=== PATIENT | male | born 1935 | race Caucasian/White ===

== ENCOUNTER 2018-02-15 19:44 | Observation (INO) | payer MEDICARE, OTHER, SELFPAY ==
[2018-02-15 19:46] VITALS: BP 186/81; PULSE 81; RESP 18; TEMP 37; O2SAT 96; BMI 33.5
--- NOTE | 2018-02-15 20:07 | CT_ITS ---
STUDY: CT BRAIN WITHOUT CONTRAST REASON FOR EXAM: Male, 82 years old. Dizziness RADIATION DOSAGE (If Supplied By Facility): CTDIvol = ( 44.99 ) mGy, DLP = ( 796.11 ) mGycm TECHNIQUE: Transaxial CT imaging of the brain was performed without administration of intravenous contrast material. Individualized dose optimization techniques were used for this CT. COMPARISON: None. FINDINGS: There is no acute bleed or infarct. There are chronic ischemic and atrophic changes. The ventricles are normal in configuration. There is no hydrocephalus. There is mucosal hypertrophy in the ethmoid sinuses and left maxillary sinus. The mastoid air cells are well aerated. There is no skull fracture. CT/Brain/Head without Contrast IMPRESSION: No acute intracranial abnormality. Chronic ischemic and atrophic changes. Sinusitis. Electronically Signed: Jose Antonio Adorno, at 20:53 EDT Tel , Service support ,
--- NOTE | 2018-02-15 20:08 | EKG12_ITS ---
Test Reason : DIZZY Blood Pressure : / mmHG Vent. Rate : 076 BPM Atrial Rate : 076 BPM P-R Int : 206 ms QRS Dur : 108 ms QT Int : 402 ms P-R-T Axes : 044 -27 028 degrees QTc Int : 452 ms Normal sinus rhythm Normal ECG Confirmed by AVTAR LOBO, GARTH ([id number]), technical writer and editor CHIQUITA BEE ([id number]) on 02/17/2018 3:33:55 PM Referred By: ALANNA Confirmed By:GARTH NOVA MD
[2018-02-15] MEDS: 0.9% Normal Saline 1,000 ML 150 ML IV (20:22)
[2018-02-15 20:26] LABS: Absolute Lymphocyte Count 1.69 X10^3/ul (0.83-4.51); Absolute Neutrophil Count 2.7 X10^3/uL (2.0-7.7); Basophil# 0.03 X10^3/uL; Basophil% 0.5 % (0-1); Eosinophil# 0.36 X10^3/uL; Eosinophils% 6.6 % (0-5); Hematocrit 41.8 % (40-54); Lymphocyte # 1.69 X10^3/ul (4.0); Lymphocyte % 30.8 % (19-41); Mean Corp Hgb Conc 33.5 g/gl (32-36); Mean Corpuscular Volume 92.7 fL (80-94); Mean Platelet Vol. 10.7 fl (6.2-12.0); Monocyte# 0.67 X10^3/uL; Monocyte% 12.2 % (0-10); Neutrophil % 49.4 % (47-70); Platelet Count 167 K/mm3 (150-450); RBC Distribution Width CV 13.3 % (11.6-14.6); RBC Distribution Width SD 44.4 fl (35.1-43.9); Red Blood Count 4.51 M/mm3 (4.6-6.2); White Blood Count 5.5 K/mm3 (4.4-11.0)
[2018-02-15 20:27] LABS: POSITIVE COUNT NO; POSITIVE DIFFERENTIAL NO; POSITIVE MORPHOLOGY NO
--- NOTE | 2018-02-15 20:36 | RAD_ITS ---
STUDY: X-RAY CHEST REASON FOR EXAM: Male, 82 years old. Chest pain TECHNIQUE: Frontal view of the chest COMPARISON: 02/11/2014 FINDINGS: The lungs are clear. There are no pleural effusions. There is no pneumothorax. The heart is normal in size. The visualized osseous structures are within normal limits. RAD/Chest 1 View (Portable) IMPRESSION: No acute thoracic pathology. Electronically Signed: Jose Antonio Adorno, at 21:05 EDT Tel , Service support ,
[2018-02-15 20:50] LABS: Anion Gap 6 (5-15); BUN 13 mg/dL (7-18); Calcium,Total 8.2 mg/dL (8.5-10.1); Chloride 110 mmol/L (98-107); Creatinine, Serum 0.93 mg/dL (0.70-1.30); EST Glomerular Filtration Rate 83 mL/min (>60); Est Glom Filt Rate - Afr Amer 101 mL/min (>60); Glucose 123 mg/dL (74-106); Potassium 3.8 mmol/L (3.5-5.1); Sodium Level 145 mmol/L (136-145)
[2018-02-15 21:23] VITALS: BP 141/69; PULSE 70; RESP 21; O2SAT 96
--- NOTE | 2018-02-15 22:41 | ED.DCSUM_ITS ---
- ER Visit Summary Date of Service: 02/15/18 Chief Complaint: Dizzy History of Present Illness: The patient is a 82 M who lives alone. Patient states he felt well around the house. He states he walked outside to do something and had sudden onset of dizziness and felt as if he is going to pass out. He did stumble around a bit and felt off balance. Symptoms lasted for approximately 2 minutes and then resolved. Patient does report a mild headache at this time. He was concerned enough to call his family. Past history significant for spinal stenosis, left bundle branch block, and neuropathy. He has had prior back surgery. Physical Examination: Vital signs are significant for blood pressure of 186/81, otherwise unremarkable. Patient sitting upright in bed no acute distress. Head neck examination is normal. Heart is regular rate and rhythm. Lung sounds are clear. Abdomen is soft nontender. Neuro exam reveals no focal deficits. Test Results: EKG is sinus at 76 with no sign of acute ischemia. Portable chest x-ray reveals no acute pathology. CT head shows no acute abnormality. Sinusitis is noted. CBC and chemistry studies are unremarkable. Troponin is less than 0.02. Emergency Department Course and Treatment: Repeat evaluation patient is resting comfortably. At this time I recommended observation overnight for cardiac monitoring as the patient had a near syncopal event. I am also concerned about possible TIA with vertigo type symptoms. Patient does live alone and is agreeable to staying for observation. Hospitalist will be contacted. Treatment Plan: [] Disposition: Admit Impression: 1. Near syncope with dizziness This note was generated with [employer] dictation software. It may contain incorrect words, spelling, and punctuation that were not noted in review of the chart prior to signing ED Disposition - Plan for ED Patient: Chief Complaint: Dizziness Referrals: Simona Gracia MD [Primary Care Provider] -
--- NOTE | 2018-02-15 22:56 | PCM.HP.STD ---
Problem List (1) Syncope Status: Acute (2) Left leg swelling Status: Acute (3) GERD (gastroesophageal reflux disease) Status: Acute History of Present Illness Date of Admission: 02/15/18 Chief Complaint: Near syncope The patient is a 82 year old male w/ h/o spinal stenosis, LBBB, and neuropathy is admitted for near syncope. He went to work this morning and when he got home, he went to the kitchen to do his usual routine. However, when he stepped outside his house, he felt severe dizziness that almost made him lost his balance. He felt as if he was about to pass out. The episode lasted for 2 minutes. He did not lose consciousness. Nothing made it better or worse. It was not associated with any other symptoms. He made a mild temporal headache afterward. The headache lasted for a few hours and resolved. He became concern and went to the ED for further workup. Past Medical History Allergies levofloxacin [From Levaquin] Allergy (Verified 02/15/18 19:46) Other Home Medications: Ambulatory Orders Medication Instructions Recorded Albuterol IH (ProAir) [Proair Hfa] 1 - 2 puff INHALATION Q4H PRN PRN 11/18/13 Desloratadine [Clarinex] 5 mg PO DAILY PRN 11/18/13 Esomeprazole Mag Trihydrate 40 mg PO DAILY 11/18/13 [Nexium] Fluticasone/Salmeterol [Advair 1 puff INHALATION DAILY 11/18/13 250/50 Mcg Diskus] Flunisolide 0.025% [Nasarel Nose 2 spray NASAL BID PRN 04/05/15 [place]] Vitamin B Complex 1 each PO DAILY 02/15/18 Surgical History: no surgical history Psychiatric History: No pertinent psych hx Lives: Alone Smoking Status: Never smoker Alcohol: None Drugs: None - *Family History Maternal History Items: No pertinent history Review of Systems Constitutional: Denies: Chills, Fever, Weight Change HEENT: Denies: Head Aches, Sinus Congestion, Sinus Drainage Cardiovascular: Denies: Chest Pain, Palpitations Respiratory: Denies: Cough, Shortness of breath at rest, Sputum production Gastrointestinal: Denies: Abdominal Pain, Nausea, Vomiting Genitourinary: Denies: Dysuria Musculoskeletal: Denies: Joint Pain, Joint Tenderness Skin: Denies: Rash, Wounds Neurological: Denies: Numbness, Tingling, Focal weakness Psychiatric: Denies: Anxiety, Depression, Homicidal Ideations, Suicidal Ideations Hematologic/ Lymphatic: Denies: Easy Bruising, Easy Bleeding VTE Information - Inpt Only VTE Present on Admission: No VTE Mechan Device Prophylaxis: SCD's VTE Pharm Prophylaxis ordered?: Yes Patient Problems: Active and Suspected Problems Syncope (Acute) Left leg swelling (Acute) GERD (gastroesophageal reflux disease) (Acute) - Physical Exam General: Alert, Oriented x3, Cooperative HEENT: Atraumatic, PERRLA, EOMI, Normocephalic Neck: Supple, No JVD, Negative Carotid Bruits Lungs: Clear to auscultation, Normal air movement Cardiovascular: Regular rate, No murmurs Abdomen: Bowel Sounds Present, Soft, Non Tender Extremities: No edema, Capillary Refill Less than 3 Seconds Skin: No rashes, No breakdown Musculoskeletal: No Tenderness to Palpation of Joints or Extremities Neurological: Cranial nerves II-XII grossly intact Psych/Mental Status: Normal Affect, Appropriate Vital Signs Temp Pulse Resp BP Pulse Ox 98.6 F 70 21 H 141/69 H 96 02/15/18 19:46 02/15/18 21:23 02/15/18 21:23 02/15/18 21:23 02/15/18 21:23 Oxygen Flow Rate (L/min) 2 Oxygen Delivery Method Nasal Cannula Weight: 102.9 kg Body Mass Index (BMI) 33.5 Laboratory Tests Past 24 Hrs 02/15/18 02/15/18 20:18 20:18 WBC 5.5 RBC 4.51 L Hgb 14.0 Hct 41.8 MCV 92.7 MCH 31.0 MCHC 33.5 RDW 13.3 RDW Differential 44.4 H Plt Count 167 MPV 10.7 Immature Gran % (Auto) 0.500 Neut % (Auto) 49.4 Lymph % (Auto) 30.8 [place] % (Auto) 12.2 H Eos % (Auto) 6.6 H Baso % (Auto) 0.5 Absolute Neuts (auto) 2.7 Absolute Lymphs (auto) 1.69 Total Counted Not Reportable Sodium 145 Potassium 3.8 Chloride 110 H Carbon Dioxide 29.0 Anion Gap 6 BUN 13 Creatinine 0.93 Estim Creat Clear Calc 62.30 Est GFR (MDRD) Af Amer 101 Est GFR (MDRD) Non-Af 83 BUN/Creatinine Ratio 14.0 Glucose 123 H Calcium 8.2 L Troponin I < 0.02 Assessment/Plan Active and Suspected Problems Syncope (Acute) Left leg swelling (Acute) GERD (gastroesophageal reflux disease) (Acute) 82 year old male w/ h/o spinal stenosis, LBBB, and neuropathy is admitted for near syncope. 1) Near syncope: No clear etiology. CT brain disclosed no acute intracranial abnormality. Chronic ischemic and atrophic changes. Sinusitis. Will get carotid US. Will get ECHO. Will also get trops. Will also get orthostatic hypotension. 2) Left leg swelling: Will get doppler. D-dimer negative. Supportive care. 3) Chronic issues: GERD, spinal stenosis, LBBB and neuropathy: Supportive care. 4) Prophylaxis: SCD / heparin.
[2018-02-15 23:26] VITALS: BP 158/77; PULSE 75; RESP 12; O2SAT 95
[2018-02-15] MEDS: Acetaminophen 325 MG Tablet 650 MG PO (23:35)
[2018-02-16] VITALS (11 sets, daily range): BP systolic 137–162; BP diastolic 68–98; PULSE 66–89; RESP 16–19; TEMP 36.6–36.9; O2SAT 93–96; BMI 39.2
[2018-02-16] MEDS: 0.9% NaCl Peripheral Flush Adult/Peds IV (01:17)
[2018-02-16] MEDS: 0.9% Normal Saline 1,000 ML 150 ML IV ×2 (01:17→08:35)
[2018-02-16 02:01] LABS: D-Dimer Quantitative (DVT/PE) 0.44 FEU/ug/m (0.27-0.49)
[2018-02-16 02:29] LABS: Thyroid Stim Hormone (TSH) 5.38 uIU/mL (0.358-3.74)
[2018-02-16] MEDS: Heparin Injection (Vial) 5,000 UNIT/ML VIAL 5000 UNIT SC ×2 (05:16→14:09)
[2018-02-16 05:36] LABS: Absolute Lymphocyte Count 1.61 X10^3/ul (0.83-4.51); Absolute Neutrophil Count 2.1 X10^3/uL (2.0-7.7); Basophil# 0.02 X10^3/uL; Basophil% 0.4 % (0-1); Eosinophil# 0.35 X10^3/uL; Eosinophils% 7.2 % (0-5); Hematocrit 39.4 % (40-54); Hemoglobin 13.3 g/dl (13.0-16.5); Lymphocyte # 1.61 X10^3/ul (4.0); Mean Corp Hgb Conc 33.8 g/gl (32-36); Mean Corpuscular Hgb 31.3 pg (27.0-32.0); Mean Corpuscular Volume 92.7 fL (80-94); Mean Platelet Vol. 10.9 fl (6.2-12.0); Monocyte# 0.76 X10^3/uL; Monocyte% 15.6 % (0-10); Neutrophil # 2.12 X10^3/uL (2.7-7.7); Neutrophil % 43.4 % (47-70); Platelet Count 162 K/mm3 (150-450); RBC Distribution Width CV 13.2 % (11.6-14.6); RBC Distribution Width SD 44.7 fl (35.1-43.9); Red Blood Count 4.25 M/mm3 (4.6-6.2); White Blood Count 4.9 K/mm3 (4.4-11.0)
[2018-02-16 05:51] LABS: ALB/GLOB Ratio 0.9 RATIO (0.9-2.4); AST(SGOT) 19 U/L (15-37); Alanine Aminotransfer ALT/SGPT 25 U/L (16-61); Albumin, Serum 2.8 g/dL (3.2-5.0); Alkaline Phosphatase 43 U/L (45-117); Anion Gap 7 (5-15); BUN 13 mg/dL (7-18); Calcium,Total 7.7 mg/dL (8.5-10.1); Chloride 113 mmol/L (98-107); Creatinine, Serum 0.87 mg/dL (0.70-1.30); EST Glomerular Filtration Rate 90 mL/min (>60); Est Glom Filt Rate - Afr Amer 109 mL/min (>60); Estimated Creatinine Clearance 66.59 ml/min; Globulin 3.2 g/dL (2.2-4.2); Glucose 89 mg/dL (74-106); Potassium 4.2 mmol/L (3.5-5.1); Sodium Level 146 mmol/L (136-145)
[2018-02-16 05:52] LABS: POSITIVE COUNT NO; POSITIVE DIFFERENTIAL NO; POSITIVE MORPHOLOGY NO
--- NOTE | 2018-02-16 05:55 | CDU_ITS ---
Reason For Study: syncope/near syncope Rt. Velocities/BP Lt. Velocities/BP Prox CCA 89.1/15.8 cm/sec. Prox CCA 134.0/14.7 cm/sec. Mid CCA 123.0/20.5 cm/sec. Mid CCA 123.0/18.1 cm/sec. Dist CCA 108.0/19.9 cm/sec. Dist CCA 124.0/17.3 cm/sec. Prox ICA 81.5/11.7 cm/sec. Prox ICA 102.0/14.1 cm/sec. Mid ICA 71.5/12.3 cm/sec. Mid ICA 75.6/13.5 cm/sec. Dist ICA 92.0/17.0 cm/sec. Dist ICA 77.4/18.8 cm/sec. Rt. ICA/CCA = 92.0/123.0=0.75. Lt. ICA/CCA = 102.0/123.0=0.83. Prox ECA 162.0/14.7 cm/sec. Prox ECA 132.0/11.0 cm/sec. Rt. Vert. 37.3/6.68 cm/sec. Lt. Vert. 53.0/9.43 cm/sec. Right Extracranial There is intimal thickening but no significant atherosclerotic plaque noted in the right common carotid artery. There is intimal thickening but no significant atherosclerotic plaque noted in the right internal carotid artery. There is intimal thickening but no significant atherosclerotic plaque noted in the right external carotid artery. Antegrade flow is noted in the right vertebral artery. There is heterogeneous, irregular atherosclerotic plaque noted in the right bulb. Left Extracranial There is intimal thickening but no significant atherosclerotic plaque noted in the left common carotid artery. There is homogeneous, smooth atherosclerotic plaque noted in the left internal carotid artery. There is intimal thickening but no significant atherosclerotic plaque noted in the left external carotid artery. Antegrade flow is noted in the left vertebral artery. There is heterogeneous, irregular atherosclerotic plaque noted in the left bulb. Interpretation Summary Mild (<50%) stenosis right extracranial internal carotid. Mild (<50%) stenosis left extracranial internal carotid. Flow within the vertebral arteries is antegrade bilaterally. Ordering Physician: Larry Nath Referring Physician: Simona Gracia Performed By: Jenna Waldrop, CHRISTIAN, RVT
--- NOTE | 2018-02-16 05:55 | VDLE_ITS ---
Reason For Study: LLE swelling RIGHT LEFT CFV is compressible, spontaneous, phasic, GSV is normal. competent and demonstrates normal CFV is compressible, spontaneous, phasic, augmentation. competent, and demonstrates normal Procedure augmentation. Exam performed portable in patient room. FV is compressible, spontaneous, phasic, The exam was diagnostic. competent and demonstrates normal A preliminary report was called and/or faxed augmentation. to PCU. POP V is compressible, spontaneous, phasic, competent and demonstrates normal augmentation. T/P Trunk is compressible. PTV is compressible. LT PerV is compressible. Interpretation Summary 1. Left leg with no DVT or SVT. Ordering Physician: Larry Nath Referring Physician: Simona Gracia Performed By: Jenna Waldrop, CHRISTIAN, RVT
--- NOTE | 2018-02-16 05:55 | ECHOD_ITS ---
Reason For Study: HTN Procedure This was a 2D Doppler, Color Flow transthoracic echocardiogram. Exam performed portable in patient room. Left Ventricle Normal LV size. Left ventricular systolic function is normal. The estimated ejection fraction is 60 %. Transmitral diastolic flow velocities suggest mild (stage 1) diastolic dysfunction (reversed pattern). No regional wall motion abnormalities noted. Right Ventricle Normal RV size. Normal systolic function. Atria Normal left atrium. Normal right atrium. Mitral Valve There is mild to moderate mitral annular calcification. Trivial eccentric mitral valve insufficiency. Tricuspid Valve Normal tricuspid valve. Mild to moderate (1-2+) tricuspid valve insufficiency. Pulmonary artery systolic pressure is 42 mmHg. Aortic Valve Trisinus/trileaflet aortic valve. Mild focal aortic valve calcification. Pulmonic Valve Normal pulmonic valve. Great Vessels Normal aortic root. The pulmonary artery is normal size. Normal inferior vena cava. Pericardium/Pleural No pericardial effusion. Medication PREVIOUSLY NEGATIVE BUBBLE STUDY. MMode/2D Measurements & Calculations LVIDd: 4.3 cm IVSd: 1.1 cm Ao root diam: 4.0 cm LVIDs: 3.0 cm LVPWd: 1.1 cm RVDd: 3.5 cm FS: 28.4 % LAV(MOD-bp): 61.7 ml EDV(MOD-sp4): 165.1 ml EDV(MOD-sp2): 145.0 ml LAV(MOD-bp) Indexed: 28.4 ml/m2 ESV(MOD-sp4): 50.1 ml EF(MOD-sp2): 58.7 % LAV(MOD-sp2): 66.5 ml EF(MOD-sp4): 69.7 % LAV(MOD-sp4): 48.3 ml SV(MOD-sp4): 115.1 ml SV(MOD-sp2): 85.2 ml LA A4 area: 18.4 cm2 RA A4 area: 15.0 cm2 Doppler Measurements & Calculations MV E max jesu: 91.8 cm/sec Lat Peak E' Jesu: 12.8 cm/sec Med Peak E' Jesu: 6.9 cm/sec MV A max jesu: 100.1 cm/sec E/E' lat: 7.1 E/E' med: 13.3 MV E/A: 0.92 Ao V2 max: 146.9 cm/sec LV V1 max: 121.9 cm/sec PA V2 max: 126.9 cm/sec Ao max P.6 mmHg LV V1 max P.9 mmHg TR max jesu: 298.7 cm/sec TR max P.7 mmHg Interpretation Summary Normal LV size. Left ventricular systolic function is normal. The estimated ejection fraction is 60 %. Transmitral diastolic flow velocities suggest mild (stage 1) diastolic dysfunction (reversed pattern). Mild to moderate (1-2+) tricuspid valve insufficiency. Pulmonary artery systolic pressure is 42 mmHg. Ordering Physician: Larry Nath Referring Physician: DELFINO SIMENTAL Performed By: Georgina Brandon RDCS, RVT
[2018-02-16] MEDS: Albuterol 2.5 MG/3 ML VIAL.NEB. INHALATION ×2 (07:13→13:08)
[2018-02-16] MEDS: Budesonide Respules 0.5 MG/2 ML AMPUL.NEB. INHALATION (07:13)
[2018-02-16] MEDS: Vitamin B Comp W-C Capsule 1 CAP PO (09:52)
[2018-02-16] MEDS: Loratadine 10 MG Tablet PO (09:52)
[2018-02-16] MEDS: Pantoprazole Sodium 40 MG Tablet PO (09:52)
--- NOTE | 2018-02-16 11:00 | PCM.DC ---
- Discharge Diagnoses Current Active Problems: Current Active and Chronic Problems Syncope (Acute) Left leg swelling (Acute) GERD (gastroesophageal reflux disease) (Acute) Reason(s) for Visit for Discharge Instructions: Dizziness You will use the following diet at home:: Regular Your food should be the consistency of: Regular Your liquids should be the consistency of: Regular/Thin Discharge Activity: Return to Normal Activity Additional Instructions: Continue to hydrate yourself. You have been prescribed antibiotics for your sinusitis. Allergies/Adverse Reactions: Allergies levofloxacin [From Levaquin] Allergy (Verified 02/15/18 19:46) Other aspirin Adverse Reaction (Verified 02/15/18 23:34) Other BLEEDING INTERNALLY Medications to take at Discharge Albuterol IH (ProAir) [Proair Hfa] 1 - 2 puff INHALATION Q4H PRN PRN 11/18/13 Desloratadine [Clarinex] 5 mg PO DAILY PRN 11/18/13 Esomeprazole Mag Trihydrate [Nexium] 40 mg PO DAILY 11/18/13 Fluticasone/Salmeterol [Advair 250/50 Mcg Diskus] 1 puff INHALATION DAILY 11/18/13 Flunisolide 0.025% [Nasarel Nose [place]] 2 spray NASAL BID PRN 04/05/15 Vitamin B Complex 1 each PO DAILY 02/15/18 Amoxicillin/Potassium Clav [Augmentin 875-125 Tablet] 1 ea PO BID #14 tab 02/16/18 The following prescriptions were given: Amoxicillin/Potassium Clav [Augmentin 875-125 Tablet] 1 ea PO BID #14 tab Primary Care Physician: Simona Gracia MD [Primary Care Provider] - Please follow up with your Primary Care Physician in: within 2 weeks Proposed Discharge Date: 02/16/18
--- NOTE | 2018-02-16 11:03 | DCINST_ITS ---
- Discharge Diagnoses Current Active Problems: Current Active and Chronic Problems Syncope (Acute) Left leg swelling (Acute) GERD (gastroesophageal reflux disease) (Acute) Reason(s) for Visit for Discharge Instructions: Dizziness You will use the following diet at home:: Regular Your food should be the consistency of: Regular Your liquids should be the consistency of: Regular/Thin Discharge Activity: Return to Normal Activity Additional Instructions: Continue to hydrate yourself. You have been prescribed antibiotics for your sinusitis. Allergies/Adverse Reactions: Allergies levofloxacin [From Levaquin] Allergy (Verified 02/15/18 19:46) Other aspirin Adverse Reaction (Verified 02/15/18 23:34) Other BLEEDING INTERNALLY Medications to take at Discharge Albuterol IH (ProAir) [Proair Hfa] 1 - 2 puff INHALATION Q4H PRN PRN 11/18/13 Desloratadine [Clarinex] 5 mg PO DAILY PRN 11/18/13 Esomeprazole Mag Trihydrate [Nexium] 40 mg PO DAILY 11/18/13 Fluticasone/Salmeterol [Advair 250/50 Mcg Diskus] 1 puff INHALATION DAILY Flunisolide 0.025% [Nasarel Nose [place]] 2 spray NASAL BID PRN 04/05/15 Vitamin B Complex 1 each PO DAILY 02/15/18 Amoxicillin/Potassium Clav [Augmentin 875-125 Tablet] 1 ea PO BID #14 tab The following prescriptions were given: Amoxicillin/Potassium Clav [Augmentin 875-125 Tablet] 1 ea PO BID #14 tab Primary Care Physician: Simona Gracia MD [Primary Care Provider] - Please follow up with your Primary Care Physician in: within 2 weeks Proposed Discharge Date: 02/16/18
--- NOTE | 2018-02-16 11:03 | PCM.DC.SUM ---
Discharge Date and Diagnosis Date of Admission: 02/15/18 Date of Discharge: 02/16/18 - Primary Discharge Diagnosis Active and Suspected Problems Syncope (Acute) Left leg swelling (Acute) GERD (gastroesophageal reflux disease) (Acute) - Secondary Discharge Diagnosis Spinal stenosis LBBB Hospital Course and Treatment Imaging Results: Clinical Impression(s) from Imaging Studies Brain CT 02/15/18 20:07 IMPRESSION: No acute intracranial abnormality. Chronic ischemic and atrophic changes. Sinusitis. Electronically Signed: Jose Antonio Willsonneeraj, at 20:53 EDT Tel , Service support , Chest X-Ray 02/15/18 20:36 IMPRESSION: No acute thoracic pathology. Electronically Signed: Jose Antonio Kyree, at 21:05 EDT Tel , Service support , None Operations: None Procedures: None Summary of Care Provided: The patient is a 82 year old M with PMHx of spinal stenosis, LBBB, peripheral neuropathy who was admitted after an episode of near syncope. It was said to have gone to work in the morning of the admission, and when he returned home and was going about his usual duties, he felt sudden onset of dizziness that made him lose his balance and feel as he was going to pass out. This lasted about 2 minutes. He did not pass out and did not lose any consciousness. He had a mild temporal headache afterwards. Workup in the ED was unremarkable. Patient was brought to the hospital, vitals remained stable, orthostatic vitals were negative. He had 2D echo that was negative. He had a Doppler ultrasound for his left leg swelling that was negative. Patient was reassured, ambulated well in the nursing unit with no acute events. He was discharged home in stable condition Discharge Diet: Low fat/ Low Cholesterol, 2000 mg Sodium Diet Discharge Activity: Return to Normal Activity Home Medications: Medications to take at Discharge Albuterol IH (ProAir) [Proair Hfa] 1 - 2 puff INHALATION Q4H PRN PRN 11/18/13 Desloratadine [Clarinex] 5 mg PO DAILY PRN 11/18/13 Esomeprazole Mag Trihydrate [Nexium] 40 mg PO DAILY 11/18/13 Fluticasone/Salmeterol [Advair 250/50 Mcg Diskus] 1 puff INHALATION DAILY 11/18/13 Flunisolide 0.025% [Nasarel Nose [place]] 2 spray NASAL BID PRN 04/05/15 Vitamin B Complex 1 each PO DAILY 02/15/18 Amoxicillin/Potassium Clav [Augmentin 875-125 Tablet] 1 ea PO BID #14 tab 02/16/18 Following Prescrptions Were Given to Patient: Amoxicillin/Potassium Clav [Augmentin 875-125 Tablet] 1 ea PO BID #14 tab Primary Care Physician: Simona Gracia MD [Primary Care Provider] - Please follow up with your Primary Care Physician in: within 2 weeks Disposition: Home Minutes spent on discharge:: 35 Patient Condition:: Stable Medical Necessity - Tobacco Use Smoking Status: Never smoker Meaningful Use Info Meaningful Use Diagnoses (Choose all that apply): None applicable Code Visit Inpatient E&M: 08526 Disch Hosp
== END 2018-02-16 11:01 | disposition home or self-care (01) ==
LOC: ED 20:46 → PCU 02-16 00:42
PROVIDERS: Admitting Provider Internal Medicine; Emergency Provider Emergency Medicine; Family Provider Family Medicine; PCP Family Medicine; Visit Provider Internal Medicine
DX: R55 Syncope and collapse (principal); M79.89 Other specified soft tissue disorders; K21.9 Gastro-esophageal reflux disease without esophagitis; I44.7 Left bundle-branch block, unspecified; G62.9 Polyneuropathy, unspecified; R51 Headache; Z79.899 Other long term (current) drug therapy; Z79.51 Long term (current) use of inhaled steroids
CPT/HCPCS: 36415; 70450; 71045; 80048; 80053; 84443; 84484; 85025; 85379; 93005; 93306; 93880; 93971; 94640; 96360; 96361; 96372; 99218; 99283; J7030; A4216; G0378

== ENCOUNTER → 2018-04-22 09:12 | Outpatient (CLI) | payer MEDICARE, OTHER, SELFPAY ==
[2018-04-22 12:34] LABS: Thyroid Stim Hormone (TSH) 2.42 uIU/mL (0.358-3.74)
== END ==
PROVIDERS: Family Provider Family Medicine; PCP Family Medicine; Visit Provider Family Medicine
DX: E03.9 Hypothyroidism, unspecified (principal)
CPT/HCPCS: 36415; 84443

== ENCOUNTER → 2018-10-30 10:10 | Outpatient (CLI) | payer MEDICARE, OTHER, SELFPAY ==
[2018-02-16 00:44] VITALS: BMI 39.2
[2018-10-30 11:48] LABS: Absolute Neutrophil Count 2.8 X10^3/uL (2.0-7.7); Basophil# 0.02 X10^3/uL; Basophil% 0.4 % (0-1); Eosinophil# 0.21 X10^3/uL; Hematocrit 43.9 % (40-54); Hemoglobin 14.9 g/dl (13.0-16.5); Lymphocyte % 24.5 % (19-41); Mean Corp Hgb Conc 33.9 g/gl (32-36); Mean Corpuscular Hgb 31.4 pg (27.0-32.0); Mean Corpuscular Volume 92.4 fL (80-94); Mean Platelet Vol. 11.2 fl (6.2-12.0); Monocyte# 0.96 X10^3/uL; Monocyte% 18.1 % (0-10); Neutrophil # 2.79 X10^3/uL (2.7-7.7); Neutrophil % 52.6 % (47-70); Platelet Count 165 K/mm3 (150-450); RBC Distribution Width CV 13.1 % (11.6-14.6); Red Blood Count 4.75 M/mm3 (4.6-6.2); White Blood Count 5.3 K/mm3 (4.4-11.0)
[2018-10-30 11:51] LABS: POSITIVE COUNT NO; POSITIVE DIFFERENTIAL NO; POSITIVE MORPHOLOGY NO
[2018-10-30 12:39] LABS: ALB/GLOB Ratio 1.1 RATIO (0.9-2.4); AST(SGOT) 20 U/L (15-37); Alanine Aminotransfer ALT/SGPT 26 U/L (16-61); Albumin, Serum 3.6 g/dL (3.2-5.0); Alkaline Phosphatase 49 U/L (45-117); Anion Gap 9 (5-15); BUN 14 mg/dL (7-18); Calcium,Total 8.4 mg/dL (8.5-10.1); Chloride 107 mmol/L (98-107); EST Glomerular Filtration Rate 76 mL/min (>60); Est Glom Filt Rate - Afr Amer 92 mL/min (>60); Globulin 3.3 g/dL (2.2-4.2); Glucose 78 mg/dL (74-106); Protein, Total 6.9 g/dL (6.4-8.2); Sodium Level 144 mmol/L (136-145); T4 Total, Thyroxin 7.2 ug/dL (4.5-12.1); Thyroid Stim Hormone (TSH) 3.53 uIU/mL (0.358-3.74)
== END ==
PROVIDERS: Family Provider Family Medicine; PCP Family Medicine; Visit Provider Family Medicine
DX: E03.9 Hypothyroidism, unspecified (principal); R53.81 Other malaise; R53.83 Other fatigue
CPT/HCPCS: 36415; 80053; 84436; 84443; 85025

== ENCOUNTER → 2019-11-12 09:36 | Outpatient (CLI) | payer MEDICARE, OTHER, SELFPAY ==
[2019-11-12 09:29] VITALS: BMI 39.2
--- NOTE | 2019-11-12 09:37 | RAD_ITS ---
STUDY: X-RAY - RIGHT KNEE REASON FOR EXAM: Male, 83 years old. KNEE PAIN TECHNIQUE: 4 view(s) of the knee. COMPARISON: Previous study of 01/30/2016 FINDINGS: Normal visualized distal femur. Normal visualized proximal tibia and fibula. Normal proximal tibiofibular articulation. There are severe degenerative changes of the medial knee compartment with severe joint space narrowing. Normal lateral femorotibial compartment. There is mild degenerative arthrosis of the patellofemoral articulation. The soft tissue structures are unremarkable. 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 The degree of degenerative disease of the medial knee compartment has increased in severity in the interval. Mild degenerative changes of the patellofemoral compartment. Electronically Signed: Juan Carlos Lai MD at 21:27 EST , Service support ,
== END ==
PROVIDERS: PCP Family Medicine; Referring Provider Physician Assistant; Visit Provider Physician Assistant
DX: M17.11 Unilateral primary osteoarthritis, right knee (principal)
CPT/HCPCS: 73564

== ENCOUNTER → 2019-12-13 14:41 | Outpatient (CLI) | payer MEDICARE, OTHER, SELFPAY ==
[2019-11-12 09:29] VITALS: BMI 39.2
[2019-12-13 17:57] LABS: Anion Gap 4 (5-15); BUN 18 mg/dL (7-18); BUN/Creat Ratio 18.5 RATIO (10-20); Calcium,Total 8.9 mg/dL (8.5-10.1); Chloride 108 mmol/L (98-107); Creatinine, Serum 0.97 mg/dL (0.70-1.30); EST Glomerular Filtration Rate 79 mL/min (>60); Est Glom Filt Rate - Afr Amer 95 mL/min (>60); Glucose 83 mg/dL (74-106); Sodium Level 141 mmol/L (136-145)
== END ==
PROVIDERS: PCP Family Medicine; Referring Provider Family Medicine; Visit Provider Family Medicine
DX: R19.7 Diarrhea, unspecified (principal)
CPT/HCPCS: 36415; 80048

== ENCOUNTER → 2020-06-08 08:25 | Outpatient (CLI) | payer MEDICARE, OTHER, SELFPAY ==
[2019-11-12 09:29] VITALS: BMI 39.2
[2020-06-05 08:04] VITALS: BMI 39.2
--- NOTE | 2020-06-08 08:26 | RAD_ITS ---
STUDY: X-RAY - ESOPHAGUS (BARIUM SWALLOW) WITH FLUOROSCOPY REASON FOR EXAM: Male, 84 years old. DYSPHAGIA, meat and pills get stuck -- x 3 months -- also chest and back pain -- prostate CA 2004 TECHNIQUE: 20 view(s) of the esophagus were obtained following swallowing of barium. FLUOROSCOPY TIME (if supplied): (0:45) minutes/seconds COMPARISON: None. FINDINGS: There is no demonstrated esophageal foreign body. There is evidence of tertiary contractions of the mid and distal esophagus. Normal gastroesophageal junction, without a demonstrated hiatal hernia. The patient ingested a 12 mm tablet of barium without any difficulty. Normal visualized aortic arch and descending thoracic aorta. Normal visualized pulmonary parenchyma. There are diffuse degenerative changes of the visualized thoracic spine. 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 Electronically Signed: Young Negron, at 9:45 EDT , Service support ,
== END ==
PROVIDERS: PCP Family Medicine; Referring Provider Internal Medicine Gastroenterology; Visit Provider Internal Medicine Gastroenterology
DX: R13.10 Dysphagia, unspecified (principal)
CPT/HCPCS: 74221

== ENCOUNTER → 2020-06-16 09:48 | Outpatient (CLI) | payer MEDICARE, OTHER, SELFPAY ==
[2019-11-12 09:29] VITALS: BMI 39.2
[2020-06-05 08:04] VITALS: BMI 39.2
== END ==
PROVIDERS: PCP Family Medicine; Referring Provider Internal Medicine Gastroenterology; Visit Provider Internal Medicine Gastroenterology
DX: Z20.828 Contact with and (suspected) exposure to other viral communicable diseases (principal)
CPT/HCPCS: 87635; 94799; U0003

== ENCOUNTER → 2020-06-26 | Outpatient (CLI) | payer MEDICARE, OTHER, SELFPAY ==
[2020-06-05 08:04] VITALS: BMI 39.2
--- NOTE | 2020-06-26 11:12 | EGD_PTH ---
PATIENT: SHMUEL DIAS LOC: [facility] U#:[id number] AGE/SX: 84/M ROOM: RE06/26/[address]: Dr. Blue Monson MD : [id number] BED: DIS: 06/26/2020 SPEC #: [id number] RECD: 06/26/20 15:09 STATUS: SALVATORE JAVEDMatheus #: [id number] NASIM: 06/26/20 11:[address]: Blue Monson DEPT: SURGICAL PATHOLOGY RECD BY: Dameon Gabriel ENTERED: 06/27/20 09:10 SP TYPE: EGD BIOPSY OT DR: Dr. Simona Gracia MD [facility] Tissues: Esophageal mucous membrane Procedures: Surgery Specimen Level IV HEADER OPERATION: EGD with biopsies PRE-OP DIAGNOSIS: Dysphagia TISSUE SUBMITTED: Esophageal biopsies, rule out EE MICROSCOPIC DIAGNOSIS Esophageal biopsy: Fragments of squamous epithelium with focal minimal chronic inflammation and congestion. Negative for eosinophilic esophagitis. See comment. SJ:marquita 06/28/20 COMMENT Increased number of eosinophils consistent with eosinophilic esophagitis are not seen. MICROSCOPIC DESCRIPTION Slides are reviewed. GROSS DESCRIPTION Received in fixative is one container labeled with the patient's name and designated esophageal biopsy. The specimen consists of multiple irregular fragments of light garcia soft tissue that in aggregate measure 1 x 0.5 x 0.1 cm. The specimen is totally submitted in one cassette. / KILEY:marquita 06/27/20 TC:3 CPT: 85533
== END | disposition home or self-care (01) ==
LOC: LABSPEC 15:28
PROVIDERS: PCP Family Medicine; Referring Provider Internal Medicine Gastroenterology; Visit Provider Internal Medicine Gastroenterology
DX: R13.10 Dysphagia, unspecified (principal)
CPT/HCPCS: 88305

== ENCOUNTER → 2020-08-25 11:37 | Outpatient (CLI) | payer MEDICARE, OTHER, SELFPAY ==
[2020-06-05 08:04] VITALS: BMI 39.2
--- NOTE | 2020-08-25 12:00 | CT_ITS ---
STUDY: CT BRAIN WITHOUT CONTRAST REASON FOR EXAM: Male, 84 years old. HEADACHE X 1 WEEK. Hit head on mirror of grain truck one week ago RADIATION DOSAGE (If Supplied By Facility): CTDIvol = ( 60.81 ) mGy, DLP = ( 1067.08 ) mGycm TECHNIQUE: Transaxial CT imaging of the brain was performed without administration of intravenous contrast material. Individualized dose optimization techniques were used for this CT. COMPARISON: Comparison is made with prior study dated 02/15/2018. FINDINGS: Normal soft tissue structures. Normal calvarium. There now is evidence of a small acute subdural hematoma overlying the left frontal, parietal occipital lobes. No significant midline shift is seen. Normal white matter tracts of the cerebral hemispheres. Normal basal ganglia and thalami. Normal brainstem. Normal cerebellum. There are no findings of an acute ischemic infarction. Partial opacification of the left maxillary sinus. CT/Brain/Head without Contrast IMPRESSION: Acute left-sided subdural hematoma overlying the left frontal, parietal and occipital lobes. No significant midline shift is seen. Electronically Signed: Young Negron, at 12:41 EDT , Service support ,
== END ==
PROVIDERS: PCP Family Medicine; Referring Provider Family Medicine; Visit Provider Family Medicine
DX: R51.9 Headache, unspecified (principal)
CPT/HCPCS: 70450

== ENCOUNTER 2020-08-25 12:21 | Emergency (ER) | payer MEDICARE, OTHER, SELFPAY ==
[2020-06-05 08:04] VITALS: BMI 39.2
[2020-08-25] VITALS (12 sets, daily range): BP systolic 162–199; BP diastolic 90–116; PULSE 81–88; RESP 15–22; TEMP 36.7; O2SAT 96–98; BMI 30.2
--- NOTE | 2020-08-25 12:26 | CT_ITS ---
STUDY: CT CERVICAL SPINE WITHOUT CONTRAST REASON FOR EXAM: Male, 84 years old. TRAUMA. Hit head against truck mirror one week ago. Pt has brain bleed RADIATION DOSAGE (If Supplied By Facility): CTDIvol = ( 23.99 ) mGy, DLP = ( 423.76 ) mGycm TECHNIQUE: High resolution transaxial imaging was performed without contrast material. Sagittal and coronal images were reconstructed. Individualized dose optimization techniques were used for this CT. COMPARISON: None FINDINGS: Normal craniovertebral junction. There are degenerative changes of the anterior atlantoaxial articulation. Normal odontoid process. Normal cervical lordosis. Multilevel spondylosis. C2-3: Normal endplates. Normal disc height and morphology. Normal central canal and intervertebral neuroforamina. C3-4: Normal endplates. Normal disc height and morphology. Normal central canal and intervertebral neuroforamina. C4-5: Mild degree of disc space narrowing and disc degeneration. Mild central spondylosis. There is evidence of a uncovertebral arthrosis on the left side causing a moderate degree of left neural foraminal stenosis. C5-6: Moderate degree of disc space narrowing. C6-7: Moderate degree of disc space narrowing. Mild degree of bilateral neural foraminal stenosis. C7-T1: Normal endplates. Normal disc height and morphology. Normal central canal and intervertebral neuroforamina. Atherosclerotic calcific plaques involving the carotid bifurcations bilaterally. CT/Spine Cervical without Contras IMPRESSION: Multilevel degenerative changes, as described above. Electronically Signed: Young Negron, at 13:08 EDT , Service support ,
--- NOTE | 2020-08-25 12:28 | ED.DCSUM_ITS ---
History of Present Illness Chief Complaint: Headache Informant: Patient Onset: Days Context: Gradual Onset Timing: Continuous Current Severity: Moderate Maximum Severity: Moderate Narrative: The patient is an 84-year-old male who is not on anticoagulants the presents from radiology with headache. The patient states that a few days ago, he was walking with his head on. He struck the top of his head against a mirror 3 separate times. He states since then, has had persistent headache. He denies any nausea or vomiting. He denies any weakness. His primary care ordered an outpatient CT. It does show left-sided subdural with 2 mm of shift. He is otherwise been in his normal state of health. He has taken some Tylenol for his headache with little improvement. Prior similar symptoms: No Recent Illness/Hospitalization: No Past Medical History - Allergies and Home Meds Allergies/Adverse Reactions: Allergies levofloxacin [From Levaquin] Allergy (Verified 08/25/20 12:24) Other aspirin Adverse Reaction (Verified 08/25/20 12:24) Other BLEEDING INTERNALLY Primary Care Physician: Simona Gracia MD [Primary Care Provider] - Prior records reviewed: Yes Past Medical History: - - Prior prostate cancer, hypertension Surgical History: no surgical history Smoking Status: Never smoker - Family History Maternal Family History: Reports: No pertinent history Review of Systems General: Denies: Chills, Fever, Sweats Eyes: Denies: Visual changes - bilaterally, Diplopia ENT: Denies: Rhinorrhea, Sore throat Cardiovascular: Denies: Chest pain, Palpitations Respiratory: Denies: Dyspnea, Cough, Dyspnea on exertion Gastrointestinal: Denies: Abdominal pain, Nausea, Vomiting, Diarrhea, Melena, Hematochezia Genitourinary: Denies: Dysuria, Hematuria, Frequency Musculoskeletal: Denies: Back pain, Extremity Pain Skin: Denies: Rash, Wounds Neurological: Reports: Headache. Denies: Weakness, Numbness Physical Exam Vital Signs/Narrative: Vital Signs Temp Pulse Resp BP Pulse Ox 08/25/20 12:23 98.0 F 83 18 162/110 H 96 Inital Vital Signs reviewed: Yes General: Well nourished, Well developed, No Acute Distress Head: Normocephalic, Atraumatic Eyes: Perrl, EOMI ENT: Moist mucous membranes, No rhinorrhea Neck: Supple, Nontender Cardiovascular: Regular rate, Regular rhythm, No murmurs Respiratory: No distress, CTA bilaterally, Chest nontender Abdomen: Soft, Nontender, Nondistended, Normal bowel sounds Back: Nontender, Normal Inspection Extremities: Nontender, No edema Skin: Normal color, No rash Neurological: Alert, Oriented x3, Cranial nerves II-XII grossly intact, Normal Strength, Normal Sensation Psychological: Normal affect, Normal Mood Diagnostic/Tx/Re-eval - Medical Decision Making The patient has a GCS of 15. I did review his CT scan. It did demonstrate a large left-sided subdural with about 2 mm of shift. The patient is awake and alert. This happened about 4 days ago. However, given the shift I do feel that he is going to require higher level of care. Patient request transfer to [facility]. The patient was discussed with the transfer line and with Dr. Freeman. He was accepted in transfer. Patient underwent CT of the cervical spine and screening labs were obtained. I would not delay transfer based on the results. Patient was placed in a c-collar. He will be transferred to [facility] for trauma and neurosurgery evaluation. Impression 1. Subdural hemorrhage with midline shift - Critical Care Time Critical care time (excluding procedures): 30-74 minutes, Discussing w/Patient &/or Family/Asset Protection Detective, Discussing w/Consultants, Arranging Admission or Transfer ED Disposition - Plan for ED Patient: Referrals: Simona Gracia MD [Primary Care Provider] -
--- NOTE | 2020-08-25 12:40 | ED.RN ---
pt in ct, could not due nih.
--- NOTE | 2020-08-25 12:44 | NURSING ---
CALLED [facility]ONEY[facility]. DR BEAUCHAMP TALKED TO TRANSFER LINE
[2020-08-25 12:49] LABS: Absolute Lymphocyte Count 1.58 X10^3/uL (0.83-4.51); Absolute Neutrophil Count 3.7 X10^3/uL (2.0-7.7); Basophil# 0.03 X10^3/uL; Basophil% 0.5 % (0-1); Eosinophil# 0.17 X10^3/uL; Eosinophils% 2.6 % (0-5); Hematocrit 44.5 % (40-54); Hemoglobin 15.1 g/dL (13.0-16.5); Lymphocyte # 1.58 X10^3/ul (4.0); Lymphocyte % 24.3 % (19-41); Mean Corp Hgb Conc 33.9 g/dL (32-36); Mean Corpuscular Hgb 31.8 pg (27.0-32.0); Mean Corpuscular Volume 93.7 fL (80-94); Mean Platelet Vol. 11.3 fl (6.2-12.0); Monocyte# 0.95 X10^3/uL; Monocyte% 14.6 % (0-10); NRBC Flagged by Analyzer 0 % (0-5); Neutrophil # 3.71 X10^3/uL (2.7-7.7); Neutrophil % 57.2 % (47-70); Platelet Count 211 K/mm3 (150-450); RBC Distribution Width CV 13.1 % (11.6-14.6); RBC Distribution Width SD 44.4 fl (35.1-43.9); Red Blood Count 4.75 M/mm3 (4.6-6.2); White Blood Count 6.5 K/mm3 (4.4-11.0)
[2020-08-25 12:56] LABS: Partial Thromboplast Time 27.2 Seconds (24.1-36.2)
[2020-08-25 13:02] LABS: AST(SGOT) 24 U/L (15-37); Alanine Aminotransfer ALT/SGPT 27 U/L (16-61); Albumin, Serum 3.8 g/dL (3.2-5.0); Alkaline Phosphatase 48 U/L (45-117); Anion Gap 6 (5-15); BUN 13 mg/dL (7-18); BUN/Creat Ratio 14.2 RATIO (10-20); Calcium,Total 8.7 mg/dL (8.5-10.1); Chloride 106 mmol/L (98-107); Creatinine, Serum 0.91 mg/dL (0.70-1.30); EST Glomerular Filtration Rate 84 mL/min (>60); Est Glom Filt Rate - Afr Amer 102 mL/min (>60); Estimated Creatinine Clearance 61.51 ml/min; Glucose 81 mg/dL (74-106); Protein, Total 7.8 g/dL (6.4-8.2); Sodium Level 140 mmol/L (136-145)
--- NOTE | 2020-08-25 13:05 | CM.ED ---
Social Work Met with patient and patient family in room for support due to patient being a critical transfer. Patient and patient son, Jose Antonio report to be doing okay. Active support and listening provided. This social worker psychiatric able to provide Jose Antonio with current visitation limitations/regulations at [facility]. No further needs identified will continue to follow as needed. Kelly GALLARDO, ELEUTERIO-S
--- NOTE | 2020-08-25 13:11 | NURSING ---
45 MIN ETA, PAMELLA DIAS
== END 2020-08-25 14:35 | disposition short-term general hospital (02) ==
PROVIDERS: Emergency Provider Emergency Medicine; PCP Family Medicine
DX: S06.5X0A Traumatic subdural hemorrhage without loss of consciousness, initial encounter (principal); W22.8XXA Striking against or struck by other objects, initial encounter; Y93.01 Activity, walking, marching and hiking; Y92.9 Unspecified place or not applicable; Y99.9 Unspecified external cause status; I10 Essential (primary) hypertension
CPT/HCPCS: 70450; 72125; 80053; 85025; 85610; 85730; 99285; A4216

== ENCOUNTER 2020-09-08 12:15 | Inpatient (IN) | payer MEDICARE, OTHER, SELFPAY ==
[2020-08-25 12:23] VITALS: BMI 30.2
--- NOTE | 2020-09-08 13:09 | HP.PCM_ITS ---
Problem List (1) History of spinal stenosis Status: Chronic (2) Left bundle branch block Status: Chronic (3) Peripheral neuropathy Status: Chronic Comment: in his BL feet that started after Lumbar surgery for canal stenosis (4) GERD (gastroesophageal reflux disease) Status: Chronic (5) Subdural hematoma Status: Acute (6) Grade I diastolic dysfunction Status: Chronic Comment: On echocardiogram in 2018 (7) Mild pulmonary hypertension Status: Chronic Comment: Pulmonary artery systolic pressure was estimated at 42 mmHg on an echocardiogram done in January 2018 (8) Tricuspid regurgitation Status: Chronic Qualifiers: Cardiac valve disease etiology: nonrheumatic Qualified Code(s): I36.1 - Nonrheumatic tricuspid (valve) insufficiency Comment: Mild to moderate (9) TBI (traumatic brain injury) Status: Acute (10) Status post craniectomy Status: Acute Comment: 08/29/20 for SDH evacuation (11) Allergic rhinitis Status: Chronic (12) History of nephrolithiasis Status: Chronic (13) History of prostate cancer Status: Chronic Comment: had XRT (14) Snoring Status: Chronic (15) Hypothyroidism Status: Acute (16) Asthma Status: Chronic (17) Venous insufficiency Status: Chronic Comment: mild History of Present Illness Date of Admission: 09/08/20 Chief Complaint: Debility secondary to recent head trauma leading to a subdural hematoma and traumatic brain injury with aphasia The patient is a 84 year old M with a past medical history of GERD, esophageal stenosis (possible Schatzki's ring from his description - has had a dilation by Dr. Monson in the past), hypothyroidism, peripheral neuropathy in his feet, history of nephrolithiasis, history of a lumbar fusion at the [facility], hx of Prostate CA treated with XRT, stage I diastolic dysfunction, mild to moderate nonrheumatic tricuspid regurgitation, mild pulmonary hypertension, asthma, allergic rhinitis and a BBB who presented to the ED at [facility] on 08/25/20 c/o a RODRIGUEZ. He had struck his head numerous times on the truck mirror and a [place] CTB showed a acute left-sided subdural hematoma overlying the left frontal, parietal and occipital lobes with a 2 mm midline shift of the brain. CT of the neck showed multilevel degenerative changes with no fracture or dislocation. He was transferred to [facility] and underwent L side craniectomy on 08/29/2020 to evacuate the subdural hematoma. He was transferred to [facility] acute inpatient rehab on 09/08/2020 for greater than 3 hours of therapy daily to restore him at or near his prior level of independence. He lives by himself and is a . His son Allen lives in [place] and is very supportive of his dad. He plans on Returning home post rehab. His primary complaints are generalized weakness and some trouble with word finding. He also has some difficulty swallowing dry chunks of food and large pills. All the records sent by [facility] were reviewed and also the records in our EMR. Past Medical History Past Medical History (Chronic Problems): Chronic Problems (Last Reviewed 09/08/20 @ 13:[address] Tg Wright DO) History of spinal stenosis (Chronic) Left bundle branch block (Chronic) Peripheral neuropathy (Chronic) in his BL feet that started after Lumbar surgery for canal stenosis Grade I diastolic dysfunction (Chronic) On echocardiogram in 2017 Mild pulmonary hypertension (Chronic) Pulmonary artery systolic pressure was estimated at 42 mmHg on an echocardiogram done in January 2018 Tricuspid regurgitation (Chronic) Mild to moderate Allergic rhinitis (Chronic) History of nephrolithiasis (Chronic) History of prostate cancer (Chronic) had XRT Snoring (Chronic) Asthma (Chronic) Venous insufficiency (Chronic) mild GERD (gastroesophageal reflux disease) (Chronic) Medical History: Medical History (Last Reviewed 09/08/20 @ 13:[address] Tg Wright DO) Asthma J45.909 Neuropathy G62.9 Allergies levofloxacin [From Levaquin] Allergy (Verified 08/25/20 12:24) Other aspirin Adverse Reaction (Verified 08/25/20 12:24) Other BLEEDING INTERNALLY Home Medications: Ambulatory Orders Medication Instructions Recorded Albuterol IH (ProAir) [Proair Hfa] 1 - 2 puff INHALATION Q4H PRN PRN 11/18/13 Desloratadine [Clarinex] 5 mg PO DAILY PRN 11/18/13 Fluticasone/Salmeterol [Advair 1 puff INHALATION DAILY 11/18/13 250/50 Mcg Diskus] Flunisolide 0.025% [Nasarel Nose 1 - 2 spray NASAL Q6H PRN PRN 04/05/15 [place]] Vitamin B Complex 1 ea PO DAILY 02/15/18 levothyroxine 25 mcg tablet 25 mcg PO DAILY #90 tab 06/25/19 Rabeprazole Sodium [Aciphex] 20 mg PO DAILY 08/25/20 Amlodipine Besylate [Norvasc] 7.5 mg PO DAILY 09/08/20 Lacosamide [Vimpat] 100 mg PO BID 09/08/20 Melatonin 6 mg PO QHS 09/08/20 Propranolol HCl [Inderal] 10 mg PO Q6H 09/08/20 Surgical History: Surgical History (Last Reviewed 09/08/20 @ 13:[address] Tg Wright DO) h/o lumbar surgery Surgical History: cataract - Bilateral cataract extraction, cholecystectomy, herniorrhaphy - X2 on the left, - - Left knee meniscus tear repair, craniectomy at [facility] August 2024 evacuation of subdural hematoma causing midline shift. Psychiatric History: No pertinent psych hx Lives: Alone - his is a Smoking Status: Never smoker Tobacco Use: Non-smoker Alcohol: Rare Drugs: None - *Family History Maternal History Items: Heart Disease Paternal History Items: - - His father suffered from dementia Sibling History Items: - - He has a sister with DURBIN, a brother with multiple sclerosis, a sister with heart disease and breast cancer, another sister with lung disease secondary to smoking Offspring History Items: High Cholesterol, - - His son had a brain tumor Review of Systems Constitutional: Reports: Anorexia - food just does not taste good to him at this time, Weakness - generalized. Denies: Chills, Fever, Weight Change Eyes: Denies: Vision Change HEENT: Reports: Difficulty Hearing, Difficulty Swallowing. Denies: Head Aches, Post Nasal Drip, Sinus Congestion, Sinus Drainage, Sore Throat, Visual Changes Cardiovascular: Reports: Edema - he gets swelling in his ankles at the end of the day and it resolves overnight with elevation, Light Headedness - occasional when standing and when rolling over in bed. Denies: Chest Pain, Palpitations Respiratory: Denies: Cough, Shortness of breath at rest, Sputum production Gastrointestinal: Reports: Diarrhea - occasional. Denies: Abdominal Pain, Constipation, Dyspepsia, Nausea, Vomiting Genitourinary: Reports: Nocturia - X1 usually. Denies: Dysuria Musculoskeletal: Reports: Joint Tenderness - at the end of the day.. Denies: Back Pain - this resolved with the lumbar fusion, Neck Pain Skin: Reports: - - He has a large incision left cerebrum due to the recent craniectomy. Denies: Jaundice, Rash, Wounds Neurological: Reports: Confusion - this was post -op and has mostly resolved....still having some trouble word finding at times, Difficulty swallowing, Headaches, - - he has dysaesthesia in both feet that comes and goes and more oftern than not comes at the end of the day. It does not interfere with sleep. This amounts to his feet feeling interrmittently cold and burning. He does not c/o pain.. Denies: Double vision, Change in Speech, Slurred speech, Focal weakness, Numbness, Tingling, Tremor, Seizures Psychiatric: Denies: Anxiety, Depression, Homicidal Ideations, Suicidal Ideations Endocrine: Denies: Heat/ Cold Intolerance Hematologic/ Lymphatic: Denies: Easy Bruising, Easy Bleeding, Hx of blood clot VTE Information - Inpt Only VTE Present on Admission: No VTE Mechan Device Prophylaxis: SCD's, Knee High DANIELLE Hose VTE Pharm Prophylaxis ordered?: No Reason prophylaxis not ordered:: Treatment Not Indicated - he is S/P craniectomy for Left side SDH with a 2mm midline shift Patient Problems: Active and Suspected Problems (Last Reviewed 09/08/20 @ 13:[address] Tg Wright, DO) Subdural hematoma (Acute) TBI (traumatic brain injury) (Acute) Status post craniectomy (Acute) 08/29/20 for SDH evacuation Hypothyroidism (Acute) - Physical Exam Vitals/I&O's: Body Mass Index (BMI) 30.2 General: Alert, Oriented x3, Cooperative, No apparent distress, Well developed, Well nourished HEENT: EOMI, Normocephalic, - - He is S/P left side craniectomy and has a large incision with lesa. The pupils are equal, round and reactive to light Oral: No Gingival or Mucosal Lesions/ Ulcerations, Dry Mucosa Neck: Supple - with decreased flexion of the neck - this is chronic per the patient, No JVD, Negative Carotid Bruits, No Nodes, Trachea Midline Lungs: Clear to auscultation, No wheeze, - - No tachypnea, no conversational dyspnea Cardiovascular: Regular rate, Regular Rhythm, Normal S1, Normal S2, No murmurs, No rub noted, No Gallop Abdomen: Bowel Sounds Present, Soft, Non Tender, Non-Distended Extremities: No clubbing, No cyanosis, Capillary Refill Less than 3 Seconds, No Calf Tenderness, Edema - mild ankle edema at the top of the socks, Peripheral Pulses Normal Skin: No rashes, No breakdown, Incision - left cranium due to the recent surgery Musculoskeletal: No Muscle Wasting, Arthritic Changes Neurological: Cranial nerves II-XII grossly intact, Neuro grossly intact, - - he does c/o intermittent burning and coldness in his feet.......Primarily at the end of the day when he comes in from working. Having occasional trouble with word finding Psych/Mental Status: Appropriate, Flat Affect Current Medications Albuterol Sulfate (Albuterol Sulfate 8 Gm Inhaler (60 Puffs)) 1 - 2 puff INHALATION Q4H PRN PRN PRN Reason: Asthma Amlodipine Besylate (Amlodipine 2.5 Mg Tablet) 7.5 mg PO DAILY [facility] Bisacodyl (Bisacodyl 10 Mg Suppository) 10 mg RECTAL .PRN X 1 PRN PRN Reason: Constipation Flunisolide (Flunisolide 0.025% 25 Ml Nasal.Sry) 1 - 2 spray NASAL Q6H PRN PRN PRN Reason: ALLERGIES Lacosamide (Lacosamide 100 Mg Tablet) 100 mg PO BID [facility] Stop: 10/08/20 10:01 Levothyroxine Sodium (Levothyroxine 25 Mcg Tablet) 25 mcg PO DAILY@0600 [facility] Loratadine (Loratadine 10 Mg Tablet) 10 mg PO DAILY PRN PRN Reason: ALLERGIES Magnesium Hydroxide (Magnesium Hydroxide 30 Ml Udc) 30 ml PO .PRN X 1 PRN PRN Reason: Constipation Melatonin (Melatonin 3 Mg Tablet) 6 mg PO QHS [facility] Pantoprazole Sodium (Pantoprazole Sodium 20 Mg Tablet) 20 mg PO DAILY [facility] Propranolol HCl (Propranolol 10 Mg Tablet) 10 mg PO Q6H [facility] Fluticasone/Salmeterol (Fluticasone/Salmeterol 232-14 Inhaler) 1 puff IH Q12 [facility] Assessment/Plan All Active Problems (Last Reviewed 09/08/20 @ 13:[address] Tg Wright, DO) Subdural hematoma (Acute) TBI (traumatic brain injury) (Acute) Status post craniectomy (Acute) Hypothyroidism (Acute) Impressions 1. physical debility due to recent traumatic SDH with midline shift and craniectomy on 08/29/20 to evacuate the clot. He had delirium post -op. 2. Left side SDH 3. TBI 4. S/P left side craniectomy on 08/29/20 at [facility] 5. GERD with dysphagia with solids....mostly with dry solids and large pills 6. possible Schatzki's ring-has had esophageal dilation in the past by Dr. Monson 7. Hypothyroidism 8. peripheral neuropathy in the feet - did not tolerate Neurontin and the [facility] will not pay for Lyrica 9. Stage I diastolic dysfunction 10. Mild to moderate nonrheumatic tricuspid regurgitation 11. Mild pulmonary hypertension with a PA systolic of 42 on an echocardiogram in 2018 12. History of prostate cancer-treated with XRT 13. History of lumbar canal stenosis-status post lumbar fusion in 2018 at the [facility] 14. Allergic rhinitis 15. Asthma 16. Chronic venous insufficiency of the lower extremities-mild 17. History of nephrolithiasis 18. HTN? Pt denies but, he is on Norvasc 7.5 mg daily currently and his pressure is mildly elevated today. He is also on Propanolol 10 mg Q 6H PLAN PT for gait stability OT for ADL's ST for evaluation for trouble word finding and also for trouble swallowing Analgesics as needed - will change the Tylenol to liquid since he is having a difficult time swallowing the caplets Bowel protocol Fall precautions Assess for Anxiety/Depression GI prophylaxis with pantoprazole DVT prophylaxis with SCDs and knee-high DANIELLE hose. Pharmacologic anticoagulation is contraindicated at this time due to recent subdural hematoma and subsequent craniectomy. Follow up with Dr. Gracia and neurosurgery following DC from [facility] AM lab including CMP, CBC, Mag and Phos Continue Vimpat for seizure prophylaxis Obtain Dr. Martinez recent PN and also obtain the records form the [facility] Inpatient E&M: [id number] Init Hosp L3
--- NOTE | 2020-09-08 13:50 | NURSING ---
DR Anthony office called to make post-op F/U. Voicemail left to call us back Friday to set up an appointment. Resident in room. Alert and oriented x3 but some confusion noted. Bed alarm on for patient safety. Dr Hairston in room and assesses resident.
[2020-09-08 13:53] VITALS: BP 153/70; PULSE 66; RESP 18; TEMP 36.6; O2SAT 97
--- NOTE | 2020-09-08 15:08 | REHABEVAL_ITS ---
Admission Information Primary Diagnosis:: Physical debility secondary to recent traumatic subdural hematoma and subsequent left side craniectomy to evacuate the clot on 08/29/2020 Status Changes from Prescreening?: No changes Identified Actual Problem List:: Skin Intergrity, Pain, ALteration in Cmfrt, Cognitve Impr/Memory Loss, Alteration in Nutrition, Mobility Impaired, BP, Hypertension, Fluid Change-Dehydration, Alteration-Leisure Activ. Potential Problem List:: DVT, Bleeding, Infection, UTI, Aspiration, Falls, Skin Integrity, Depression Risk of Complications DVT: DANIELLE Hose, Sequential Compression Device Bleeding: Monitor Lab Values, Nursing to Teach Precautions for anti-coagulation therapy., Wound, if applicable, to be assessed every shift., Stroke patients assessed for lethargy or change in status. Infection: Clinical Staff to Monitor for S/S of infection:, S/S of infection include fever, redness, warmth, etc. Urinary Tract Infection: Monitor for frequency, burning, discomfort, or incontinence., Nursing will obtain urine sample for urinalysis and C&S when ordered. Aspiration: Clinical staff will monitor for coughing, drooling, congestion., Speech will evaluate swallowing and dsyphasia., Nursing will monitor patient swallowing during meals. Falls: Patient will be evaluated for Fall Precautions, Patient will be placed on Fall Precautions as indicated per protocol. Skin Breakdown: Nursing will assess skin daily using assessment tool., Nursing will place on Skin Breakdown Precautions as indicated. Pain: Clinical staff will assess patient's pain level per protocol., Medications will be given, if needed, and the pain level reassessed., Other methods: Massage, distraction, decrease stimulus, etc. used PRN. Plan of Care Patient requires physician specializing in physical medicine and rehab oversight to provide close medical supervision of rehab issues including: Pain Management, Sleep Problems, Bowel and Bladder, Medical and co-morbidity Management, DVT prophylaxis, Rehabilitation Leadership, Coordination of treatment team Patient needs Physical Therapy: For a minimum of 1 hour, At least 5 out of 7 days Patient needs Physical Therapy to improve:: Mobility, Mobility, Mobility, Strengthening, Transfers, Stretching, ROM, Endurance, Stairs, Gait, Balance Patient needs Occupational Therapy: For a minimum of 1 hour, At least 5 out of 7 days Patient needs Occupational Therapy to improve ADL's incl.: Eating, Grooming, Bathing, Dressing, Toileting, Toilet transfers, Community Reintegration, Higher functioning activities, Household tasks, Adaptive Equipment, Splinting, Other activities as determined Patient requires speech therapy: For a minimum of 1 hour, At least 5 out of 7 days Patient requires speech therapy for: Swallowing, Cognition, Language Skills, Compensatory Strategies Patient requires 24/7 Rehabilitation Nursing for: Pain Issues, Identifying and preventing risk factors, Monitoring and reporting current medical conditions, Assisting with ambulation, transfer, and all ADL's, Teaching patients about disease process and medications, Family teaching, Providing safe environment, Bowel and Bladder Issues, Skin integrity, Medication Management Patient needs Equipment Processor/ Case Management for: Discharge Planning, Arranging Home Equipment or Services, Family Interventions Patient needs Dietary and Nutrition Services for: Adequate Nutrition, N utritional Supplements, Nutritional Education Goals Patient will remain: free from falls, or injury at time of discharge. Patient will perform bed mobility at: MOD I level of assist. Patient will complete transfers from bed to chair at: MOD I level of assist. Patient will ambulate: 100 feet, with MOD I assist, with LRD Patient will complete upper body dressing at: MOD I level of assist. Patient will complete lower body dressing at: MOD I level of assist. Patient will complete toileting at: MOD I level of assist. Patient will perform bathing at: MOD I level of assist. Patient will complete grooming at: MOD I level of assist. Patient will complete home management skills at: MOD I level of assist. Patient will achieve: 12 stairs, at MOD I assist Patient will have pain level of: of 3 or less Patient's skin will: remain intact, free from infection. Patient will receive: adequate nutrition. Discharge Planning Pt Prognosis for Sig. Practical Improv. w/in Reasonable Time: Good Estimated Length of stay (days): 14 Anticipated D/C Destination: Home
[2020-09-08 15:37] VITALS: BMI 29.5
[2020-09-08 15:40] VITALS: BMI 29.5
--- NOTE | 2020-09-08 16:02 | CASEMGMT ---
Social Work PHQ-9 completed. Pt scored 14/27. Pt reported the first week of his injury was very hard and reported to depressive symptoms. However, the past few days of his recovery has been much better. Only report is loss of taste/appetite. aware and will treat accordingly. Will continue to follow. Elda oRa ,ORDER CALLER COURTROOM DEPUTY OR CALENDAR CLERK
[2020-09-08] MEDS: Acetaminophen 650 MG/20 ML UDC 975 MG PO ×2 (16:16→21:01)
--- NOTE | 2020-09-08 16:33 | NURSING ---
Resident complains of having continued loose stool. Dr Hairston made aware and orders Immodium 2mg Q4hrs prn for continued loose stools.
[2020-09-08 17:37] VITALS: BP 135/87; PULSE 66; RESP 16; TEMP 36.5; O2SAT 98
[2020-09-08] MEDS: Propranolol 10 MG Tablet PO ×2 (17:41→23:39)
[2020-09-08] MEDS: Loperamide 2 MG Capsule PO (18:24)
[2020-09-08 19:22] VITALS: BP 135/81; PULSE 66; RESP 16; TEMP 36.5; O2SAT 98
[2020-09-08] MEDS: Fluticasone/Salmeterol 232-14 Inhaler 1 PUFF IH (20:26)
[2020-09-08] MEDS: Lacosamide 100 MG Tablet PO (20:27)
[2020-09-08] MEDS: MELATONIN 3 MG TABLET 6 MG PO (20:27)
[2020-09-08 22:00] VITALS: PULSE 65
[2020-09-08] MEDS: Albuterol Sulfate 8 gm Inhaler (60 puffs) INHALATION (23:58)
[2020-09-09] MEDS: Propranolol 10 MG Tablet PO ×4 (06:28→22:57)
[2020-09-09] MEDS: Levothyroxine 25 MCG TABLET PO (06:28)
[2020-09-09] MEDS: Acetaminophen 650 MG/20 ML UDC 975 MG PO ×3 (06:28→20:34)
[2020-09-09] MEDS: amLODIPine 2.5 MG Tablet 7.5 MG PO (07:43)
[2020-09-09] MEDS: Pantoprazole Sodium 20 MG Tablet PO (07:43)
[2020-09-09 08:32] VITALS: BP 121/69; PULSE 71; RESP 16; TEMP 36.6; O2SAT 97
[2020-09-09] MEDS: Lacosamide 100 MG Tablet PO ×2 (10:33→20:34)
[2020-09-09] MEDS: Fluticasone/Salmeterol 232-14 Inhaler 1 PUFF IH ×2 (10:33→20:36)
[2020-09-09 11:09] LABS: Hemoglobin 11.6 g/dL (13.0-16.5); Mean Corp Hgb Conc 33.1 g/dL (32-36); Mean Corpuscular Hgb 31.5 pg (27.0-32.0); Mean Corpuscular Volume 95.1 fL (80-94); Mean Platelet Vol. 10.9 fl (6.2-12.0); Platelet Count 280 K/mm3 (150-450); RBC Distribution Width CV 13.1 % (11.6-14.6); RBC Distribution Width SD 44.9 fl (35.1-43.9); Red Blood Count 3.68 M/mm3 (4.6-6.2); White Blood Count 6.3 K/mm3 (4.4-11.0)
[2020-09-09 11:30] LABS: ALB/GLOB Ratio 0.7 RATIO (0.9-2.4); AST(SGOT) 53 U/L (15-37); Alanine Aminotransfer ALT/SGPT 56 U/L (16-61); Albumin, Serum 2.7 g/dL (3.2-5.0); Alkaline Phosphatase 61 U/L (45-117); Anion Gap 6 (5-15); BUN 11 mg/dL (7-18); Calcium,Total 8.3 mg/dL (8.5-10.1); Chloride 112 mmol/L (98-107); Creatinine, Serum 0.85 mg/dL (0.70-1.30); EST Glomerular Filtration Rate 92 mL/min (>60); Est Glom Filt Rate - Afr Amer 111 mL/min (>60); Estimated Creatinine Clearance 65.85 ml/min; Globulin 3.9 g/dL (2.2-4.2); Glucose 98 mg/dL (74-106); Magnesium 1.7 mg/dL (1.6-2.6); Phosphorus 2.2 mg/dL (2.5-4.9); Potassium 4.1 mmol/L (3.5-5.1); Protein, Total 6.6 g/dL (6.4-8.2); Sodium Level 140 mmol/L (136-145)
[2020-09-09 19:53] VITALS: BP 119/66; PULSE 66; RESP 17; TEMP 36.6; O2SAT 96
[2020-09-09] MEDS: MELATONIN 3 MG TABLET 6 MG PO (20:35)
[2020-09-09 22:56] VITALS: BP 125/61; PULSE 62
[2020-09-10 06:34] VITALS: BP 121/66; PULSE 71
[2020-09-10] MEDS: Acetaminophen 650 MG/20 ML UDC 975 MG PO ×3 (07:07→22:26)
[2020-09-10] MEDS: Propranolol 10 MG Tablet PO ×3 (07:09→17:06)
[2020-09-10] MEDS: Levothyroxine 25 MCG TABLET PO (07:09)
[2020-09-10 08:52] VITALS: BP 121/66; PULSE 71; RESP 16; TEMP 36.5; O2SAT 97
[2020-09-10] MEDS: amLODIPine 2.5 MG Tablet 7.5 MG PO (10:51)
[2020-09-10] MEDS: Pantoprazole Sodium 20 MG Tablet PO (10:51)
[2020-09-10] MEDS: Fluticasone/Salmeterol 232-14 Inhaler 1 PUFF IH ×2 (10:51→22:26)
[2020-09-10] MEDS: Lacosamide 100 MG Tablet PO ×2 (10:52→22:27)
--- NOTE | 2020-09-10 18:50 | NURSING ---
Ambulated around nursing unit approx 200 feet with touching assist from staff via walker. Reece to head intact and no infection noted. Denies headaches or vision changes.
[2020-09-10 21:47] VITALS: BP 134/76; PULSE 73; RESP 18; TEMP 36.8; O2SAT 98
[2020-09-10] MEDS: MELATONIN 3 MG TABLET 6 MG PO (22:26)
[2020-09-11] MEDS: Propranolol 10 MG Tablet PO ×5 (00:25→23:56)
[2020-09-11] MEDS: Acetaminophen 650 MG/20 ML UDC 975 MG PO ×3 (05:46→21:38)
[2020-09-11] MEDS: Levothyroxine 25 MCG TABLET PO (05:46)
[2020-09-11 08:28] VITALS: BP 143/73; PULSE 64; RESP 18; TEMP 36.4; O2SAT 97
[2020-09-11] MEDS: Lacosamide 100 MG Tablet PO ×2 (09:23→21:38)
[2020-09-11] MEDS: Pantoprazole Sodium 20 MG Tablet PO (09:23)
[2020-09-11] MEDS: Fluticasone/Salmeterol 232-14 Inhaler 1 PUFF IH ×2 (09:23→21:40)
[2020-09-11] MEDS: amLODIPine 2.5 MG Tablet 7.5 MG PO (09:23)
[2020-09-11 12:15] VITALS: BP 111/62; PULSE 80
--- NOTE | 2020-09-11 12:29 | PN_ITS ---
Patient Problems: Active and Suspected Problems (Last Reviewed 09/08/20 @ 13:[address] Tg Wright, DO) Subdural hematoma (Acute) TBI (traumatic brain injury) (Acute) Status post craniectomy (Acute) 08/29/20 for SDH evacuation Hypothyroidism (Acute) Subjective: Afebrile VSS Maintaining appropriate oxygen saturation on RA Oral intake is improving. Fluid intake on 09/10/2020 was 1740. Discussed with nursing - no problems that need addressed Reviewed the PT/OT/ST notes. Diagnosed by speech therapy on 09/09/2020 after and LORENZA 3 evaluation to have mild cognitive linguistic deficits characterized primarily by impairments in memory and language. Medication list reviewed. Records were obtained from Dr. Monson regarding the patient's GERD and need for esophageal dilatation. He was referred to Dr. Monson for dysphagia and painful swallowing. Manometry showed findings causing concern for achalasia. 90% failed swallows and 90% ineffective swallows. Labs from 09/09/2020 was personally reviewed. Hemoglobin is mildly decreased at 11.6, likely due to acute blood loss anemia from subdural hematoma. White blood cell count of platelets were within normal limits. Electrolytes are unremarkable and the BUN was 11 with a creatinine of 0.85. Phosphorus is low at 2.2 and the magnesium was borderline low at 1.7. LFTs are unremarkable. He is complaining of loss of hearing in his left ear recently. - Physical Exam Vitals/I&O's: Vital Signs Temp Pulse Resp BP Pulse Ox 97.6 F L 80 18 111/62 97 09/11/20 08:28 09/11/20 12:15 09/11/20 08:28 09/11/20 12:15 09/11/20 08:28 Oxygen Delivery Method Room Air Weight: 200 lb Body Mass Index (BMI) 29.5 Intake and Output for Last 24 Hours 09/09/20 09/10/20 09/11/20 23:59 23:59 23:59 Intake Total 1300 / 1500 1740 / 1740 480 / 480 Output Total 1300 / 1300 1880 / 1880 Balance 0 / 200 -140 / -140 480 / 480 General: Alert, Cooperative, No apparent distress HEENT: Normocephalic, - - the incision is intact...there is 1 staple that pulled through on 1 side...small amount of dried blood in that area. The R EAC is clear but, the left EAC is completely occluded with a hard plug of wax. Oral: Moist Mucosa Neck: No JVD Lungs: Clear to auscultation Cardiovascular: Regular rate, Regular Rhythm, Normal S1, Normal S2, No Gallop Abdomen: Soft, Non Tender Extremities: No edema, No Calf Tenderness Skin: No rashes, No breakdown Neurological: - - biggest deficit seems to be cognitive dysfunction and dysphagia. Having trouble word finding when talking with me. Psych/Mental Status: Flat Affect Current Medications Acetaminophen (Acetaminophen 650 Mg/20 Ml Udc) 975 mg PO Q8 [facility] Last Admin: 09/11/20 05:46 Dose: 975 mg Documented by: Albuterol Sulfate (Albuterol Sulfate 8 Gm Inhaler (60 Puffs)) 1 - 2 puff IN HALATION Q4H PRN PRN PRN Reason: Asthma Last Admin: 09/08/20 23:58 Dose: 2 puff Documented by: Amlodipine Besylate (Amlodipine 2.5 Mg Tablet) 7.5 mg PO DAILY [facility] Last Admin: 09/11/20 09:23 Dose: 7.5 mg Documented by: Bisacodyl (Bisacodyl 10 Mg Suppository) 10 mg RECTAL .PRN X 1 PRN PRN Reason: Constipation Flunisolide (Flunisolide 0.025% 25 Ml Nasal.Sry) 1 - 2 spray NASAL Q6H PRN PRN PRN Reason: ALLERGIES Lacosamide (Lacosamide 100 Mg Tablet) 100 mg PO BID [facility] Stop: 10/08/20 10:01 Last Admin: 09/11/20 09:23 Dose: 100 mg Documented by: Levothyroxine Sodium (Levothyroxine 25 Mcg Tablet) 25 mcg PO DAILY@0600 [facility] Last Admin: 09/11/20 05:46 Dose: 25 mcg Documented by: Loperamide HCl (Loperamide 2 Mg Capsule) 2 mg PO Q4H PRN PRN PRN Reason: LOOSE STOOLS Last Admin: 09/08/20 18:24 Dose: 2 mg Documented by: Loratadine (Loratadine 10 Mg Tablet) 10 mg PO DAILY PRN PRN Reason: ALLERGIES Magnesium Hydroxide (Magnesium Hydroxide 30 Ml Udc) 30 ml PO .PRN X 1 PRN PRN Reason: Constipation Melatonin (Melatonin 3 Mg Tablet) 6 mg PO QHS [facility] Last Admin: 09/10/20 22:26 Dose: 6 mg Documented by: Pantoprazole Sodium (Pantoprazole Sodium 20 Mg Tablet) 20 mg PO DAILY [facility] Last Admin: 09/11/20 09:23 Dose: 20 mg Documented by: Propranolol HCl (Propranolol 10 Mg Tablet) 10 mg PO Q6H [facility] Last Admin: 09/11/20 12:15 Dose: 10 mg Documented by: Fluticasone/Salmeterol (Fluticasone/Salmeterol 232-14 Inhaler) 1 puff IH Q12 [facility] Last Admin: 09/11/20 09:23 Dose: 1 puff Documented by: Medical Necessity - Tobacco Use Smoking Status: Never smoker Tobacco Use: Non-smoker Assessment/Plan All Active Problems (Last Reviewed 09/08/20 @ 13:[address] Tg Wright, DO) Subdural hematoma (Acute) TBI (traumatic brain injury) (Acute) Status post craniectomy (Acute) Hypothyroidism (Acute) Impressions 1. physical debility due to recent traumatic SDH with midline shift and craniectomy on 08/29/20 to evacuate the clot. He had delirium post -op. 2. Left side SDH 3. TBI 4. S/P left side craniectomy on 08/29/20 at [facility] 5. GERD with dysphagia with solids....mostly with dry solids and large pills 6. possible achalasia-has had esophageal dilation in the past by Dr. Monson 7. Hypothyroidism 8. peripheral neuropathy in the feet - did not tolerate Neurontin and [facility] will not [facility] for Lyrica 9. Stage I diastolic dysfunction 10. Mild to moderate nonrheumatic tricuspid regurgitation 11. Mild pulmonary hypertension with a PA systolic of 42 on an echocardiogram in 2018 12. History of prostate cancer-treated with XRT 13. History of lumbar canal stenosis-status post lumbar fusion in 2018 at the [facility] 14. Allergic rhinitis 15. Asthma 16. Chronic venous insufficiency of the lower extremities-mild 17. History of nephrolithiasis 18. HTN? Pt denies but, he is on Norvasc 7.5 mg daily currently and his pressure is mildly elevated today. He is also on Propanolol 10 mg Q 6H 19. hearing loss left ear - likely due to a cerumen impaction 20. Hypophosphatemia 21. Borderline low magnesium Supplement phosphorus and magnesium and recheck lab in 4 to 5 days. continue therapy Debrox to L EAC Q HS for 5 nights and recheck.........If the wax softens may be able to dis-impact with a cerumen loop Inpatient E&M: 86932 Subs Hosp L2
[2020-09-11] MEDS: Magnesium Chloride 64 MG Delay Rel.Tablet 128 MG PO (14:15)
[2020-09-11] MEDS: Na Biphos/Potassium Phosphate PACKET 1 PACKET PO ×2 (14:15→21:39)
[2020-09-11 18:18] VITALS: BP 113/69; PULSE 63
[2020-09-11 20:56] VITALS: BP 133/68; PULSE 57; RESP 18; TEMP 36.5; O2SAT 99
[2020-09-11 21:30] VITALS: PULSE 57; RESP 18; O2SAT 99
[2020-09-11] MEDS: MELATONIN 3 MG TABLET 6 MG PO (21:38)
[2020-09-12] MEDS: Propranolol 10 MG Tablet PO ×4 (05:21→23:43)
[2020-09-12] MEDS: Na Biphos/Potassium Phosphate PACKET 1 PACKET PO ×3 (05:21→20:20)
[2020-09-12] MEDS: Acetaminophen 650 MG/20 ML UDC 975 MG PO ×3 (05:22→20:19)
[2020-09-12] MEDS: Levothyroxine 25 MCG TABLET PO (05:22)
--- NOTE | 2020-09-12 05:32 | NURSING ---
24 lesa were removed from scalp-every other one as per order. pt tolerated well , no active drainage noted at this time
[2020-09-12 08:34] VITALS: BP 123/74; PULSE 68; RESP 18; TEMP 36.9; O2SAT 98
[2020-09-12 10:00] VITALS: PULSE 62
[2020-09-12] MEDS: amLODIPine 2.5 MG Tablet 7.5 MG PO (10:00)
[2020-09-12] MEDS: Fluticasone/Salmeterol 232-14 Inhaler 1 PUFF IH ×2 (10:00→20:19)
[2020-09-12] MEDS: Sertraline 50 MG Tablet 25 MG PO (10:01)
[2020-09-12] MEDS: Pantoprazole Sodium 20 MG Tablet PO (10:01)
[2020-09-12] MEDS: Magnesium Chloride 64 MG Delay Rel.Tablet 128 MG PO (10:01)
[2020-09-12] MEDS: Lacosamide 100 MG Tablet PO ×2 (10:08→20:21)
[2020-09-12 19:29] VITALS: BP 132/67; PULSE 58; RESP 18; TEMP 37.1; O2SAT 98
[2020-09-12 20:10] VITALS: PULSE 58; O2SAT 98
[2020-09-12] MEDS: Carbamide Peroxide 15 ML Bottle 5 DRP OTIC (20:18)
[2020-09-12] MEDS: MELATONIN 3 MG TABLET 6 MG PO (20:20)
--- NOTE | 2020-09-13 02:58 | NURSING ---
Reviewed and agree with WALL TO WALL CARPET INSTALLER documentation and charting.
[2020-09-13] MEDS: Na Biphos/Potassium Phosphate PACKET 1 PACKET PO ×3 (06:45→22:05)
[2020-09-13] MEDS: Propranolol 10 MG Tablet PO (06:45)
[2020-09-13] MEDS: Levothyroxine 25 MCG TABLET PO (06:45)
[2020-09-13] MEDS: Acetaminophen 650 MG/20 ML UDC 975 MG PO ×3 (06:45→22:05)
[2020-09-13 08:12] VITALS: BP 115/70; PULSE 61; RESP 16; TEMP 36.6; O2SAT 98
[2020-09-13] MEDS: Magnesium Chloride 64 MG Delay Rel.Tablet 128 MG PO (08:20)
[2020-09-13] MEDS: Sertraline 50 MG Tablet 25 MG PO (08:21)
[2020-09-13] MEDS: Fluticasone/Salmeterol 232-14 Inhaler 1 PUFF IH (08:22)
[2020-09-13] MEDS: amLODIPine 2.5 MG Tablet 7.5 MG PO (08:22)
[2020-09-13] MEDS: Pantoprazole Sodium 20 MG Tablet PO (08:23)
[2020-09-13] MEDS: Lacosamide 100 MG Tablet PO ×2 (08:23→22:05)
--- NOTE | 2020-09-13 09:28 | NURSING ---
26 lesa removed from surgical incision to left scalp. Pt tolerated well, area cleansed afterwards and no drainage noted.
--- NOTE | 2020-09-13 09:58 | PCM.PN.BLA ---
Progress Note Afebrile Vital signs stable Maintaining appropriate oxygen saturation on room air Adequate oral intake Last bowel movement 09/13/2020 Reviewed the PT/OT/ST notes. No problems reported by nursing Asad is c/o getting woken up to take Propanolol every 6 hours. He denies HTN prior to the SDH. He thinks he was started on Propanolol for a fast HR while at [facility]. He denies palpitations, CP, SOB, RODRIGUEZ, neck pain. His pain is adequately controlled with Tylenol. ALert and oriented X3 Lungs - CTA H - regular with a HR in the low 60's abd - soft and NT, good bowel function no edema Impressions 1. Apical debility secondary to subdural hematoma and subsequent craniotomy 2. Bradycardia 3. ? HTN - pt denies a hx of HTN 4. Traumatic brain injury with cognitive dysfunction 5. Acute blood loss anemia 6. Cerumen impaction in the left EAC with decreased hearing check BMP, HH, phos and mag in the AM Decrease Advair to once daily....this is how he takes this medication At home continue the Debrox Continue therapy DC the Propanolol and start Atenolol 25 mg QHS.....he denies any hx of migraines. He thinks he was started on Propanolol for tachycardia at previous hospital. May need some supervision with medication at DC. STROKE Vital Signs/Narrative: Vital Signs Temp Pulse Resp BP Pulse Ox 09/13/20 08:12 97.9 F 61 16 115/70 98 Inpatient E&M: [id number] Subs Hosp L2
[2020-09-13] MEDS: Loperamide 2 MG Capsule PO ×2 (15:15→22:06)
[2020-09-13 19:53] VITALS: BP 134/68; PULSE 60; RESP 16; TEMP 36.8; O2SAT 97
[2020-09-13 22:00] VITALS: PULSE 63; RESP 16; O2SAT 98
[2020-09-13] MEDS: Albuterol Sulfate 8 gm Inhaler (60 puffs) INHALATION (22:02)
[2020-09-13] MEDS: MELATONIN 3 MG TABLET 6 MG PO (22:05)
[2020-09-13] MEDS: Atenolol 25 MG Tablet PO (22:05)
[2020-09-13] MEDS: Carbamide Peroxide 15 ML Bottle 5 DRP OTIC (22:06)
[2020-09-14 06:05] LABS: Hematocrit 33.1 % (40-54); Hemoglobin 10.7 g/dL (13.0-16.5)
[2020-09-14] MEDS: Levothyroxine 25 MCG TABLET PO (06:29)
[2020-09-14] MEDS: Acetaminophen 650 MG/20 ML UDC 975 MG PO ×3 (06:29→21:44)
[2020-09-14] MEDS: Na Biphos/Potassium Phosphate PACKET 1 PACKET PO ×3 (06:29→21:45)
[2020-09-14 06:42] LABS: Anion Gap 5 (5-15); BUN 9 mg/dL (7-18); BUN/Creat Ratio 10.2 RATIO (10-20); Calcium,Total 8.5 mg/dL (8.5-10.1); Chloride 110 mmol/L (98-107); Creatinine, Serum 0.88 mg/dL (0.70-1.30); EST Glomerular Filtration Rate 87 mL/min (>60); Est Glom Filt Rate - Afr Amer 106 mL/min (>60); Glucose 99 mg/dL (74-106); Phosphorus 3.2 mg/dL (2.5-4.9); Potassium 3.9 mmol/L (3.5-5.1); Sodium Level 142 mmol/L (136-145)
[2020-09-14 07:46] VITALS: BP 148/61; PULSE 58; RESP 16; TEMP 36.7; O2SAT 97
[2020-09-14] MEDS: Fluticasone/Salmeterol 232-14 Inhaler 1 PUFF IH ×2 (08:53→08:54)
[2020-09-14] MEDS: Magnesium Chloride 64 MG Delay Rel.Tablet 128 MG PO (08:54)
[2020-09-14] MEDS: amLODIPine 2.5 MG Tablet 7.5 MG PO (08:55)
[2020-09-14] MEDS: Lacosamide 100 MG Tablet PO ×2 (08:55→21:44)
[2020-09-14] MEDS: Pantoprazole Sodium 20 MG Tablet PO (08:55)
[2020-09-14] MEDS: Sertraline 50 MG Tablet 25 MG PO (08:56)
[2020-09-14 10:00] VITALS: PULSE 58
--- NOTE | 2020-09-14 11:37 | CASEMGMT ---
Social Work IDT met with patient and son via conference call for Team meeting. Discussed patient's progress in therapy. Pt is SBA-CGA for tx, using FWW in the A.M. and P.M. and cane during the day, ambulating 165ft with SBA-CGA, completed 3 steps with 2HR CGA, SBA-sup for all ADLS with AE. ST working on word finding, memory, comprehension. Pt is on a moist, minced diet, thin liquids. Working on med management and fiances. Son stated pt's other son will come into town to stay with pt at [place] for a couple weeks to assist. Explained Medicare approved 16 days with [facility] 09/24; however, IDT agrees to [place] 09/20 to be home for the holidays. Pt and son agreeable. Pt has no DME needs. Pt prefers HHC vs outpatient. Referred to [facility] PT/OT/ST. Plan: DC home with son's support 09/20, [facility] PT/OT/ST, No DME. PAULINA BarrowW
--- NOTE | 2020-09-14 12:02 | PCM.PN.BLA ---
Progress Note Asad was seen on team rounds today. His son Allen participated by phone. Allen's other son will be staying with him 19/05 when he goes home for any assistance that Asad may need. Asad has been doing wonderful with occupational therapy and physical therapy. He is very strong and he is ambulating without a device at contact guard assist. His biggest challenges are going to be safety awareness and memory. Afebrile VSS Maintaining appropriate oxygen saturation on RA Oral intake is good Discussed with nursing - no problems that need addressed Reviewed the PT/OT/ST notes Medication list reviewed. All lab was personally reviewed. Hemoglobin is 10.7 today with a hematocrit of 33.1. The hemoglobin is down from 11.6 on 09/09/2020. Potassium is 3.9 and the sodium is 142. BUN is 9 with a creatinine of 0.88 which is stable. Phosphorus and magnesium are both within normal limits today following supplementation. He is c/o not sleeping well. He is currently taking Melatonin 6 mg at HS. Post void residual were insignificant. He denies lightheadedness. He denies pain. No dysuria. He is asking about a helmet to wear for the next 6 months to protect his skull. I pointed out that since the bone was replaced at the time of the surgery that a helmet is not necessary. We recommended that if he feels he needs a helmet he check out various skateboarding and bicycle helmets and see which helmet would work best for him. Alert, oriented X 3, pleasant, appropriate and with a good sense of humor....joking with therapists Lungs - CTA HRRR abd - soft and NT no edema no calf pain The incision is intact and all the lesa are out now. There is no dehiscence and no corrine-incisional erythema. No purulent DC Impressions 1. Physical debility/cognitive deficit due to recent subdural hematoma requiring craniectomy for hematoma removal. 2. Acute blood loss anemia 3. Hypophosphatemia-resolved 4. Hypomagnesemia-resolved 5. History of tachycardia-controlled with atenolol. Heart rate increases appropriately with exertion and he is asymptomatic at rest. 6. Cerumen impaction left ear with hearing deficit 7. Seizure prophylaxis with Vimpat -no seizures since presentation to rehab 8. Insomnia-not adequately controlled with melatonin. Post void residuals were insignificant so we will add trazodone at at bedtime. this is a chronic problem.....he wakes up frequently at night and has trouble going back to sleep. Continue therapy Plan DC for 09/20/20 with [facility] for ongoing speech therapy Increase the Sertraline to 50 mg. No adverse SE's and appetite has improved. Add Trazodone aT HS for sleep. Continue to monitor the BP's and adjust meds as needed Check orthostatic VS's in the AM STROKE Vital Signs/Narrative: Vital Signs Pulse 09/14/20 10:00 58 L Inpatient E&M: [id number] Subs Hosp L2
[2020-09-14 17:50] VITALS: BP 122/63; PULSE 60; RESP 18; TEMP 36.8; O2SAT 97
[2020-09-14] MEDS: Atenolol 25 MG Tablet PO (21:45)
[2020-09-14] MEDS: traZODone 50 MG Tablet PO (21:45)
[2020-09-14] MEDS: Carbamide Peroxide 15 ML Bottle 5 DRP OTIC (21:46)
[2020-09-15] MEDS: Acetaminophen 650 MG/20 ML UDC 975 MG PO ×3 (05:36→21:02)
[2020-09-15] MEDS: Na Biphos/Potassium Phosphate PACKET 1 PACKET PO ×2 (05:38→14:14)
[2020-09-15] MEDS: Levothyroxine 25 MCG TABLET PO (05:38)
[2020-09-15 06:46] VITALS: BP 107/66; BP 117/61; BP 75/49; PULSE 63; PULSE 65; PULSE 73
[2020-09-15] MEDS: Magnesium Chloride 64 MG Delay Rel.Tablet 128 MG PO (07:29)
[2020-09-15] MEDS: Fluticasone/Salmeterol 232-14 Inhaler 1 PUFF IH (07:29)
[2020-09-15] MEDS: amLODIPine 2.5 MG Tablet 7.5 MG PO (07:30)
[2020-09-15] MEDS: Pantoprazole Sodium 20 MG Tablet PO (07:30)
[2020-09-15] MEDS: Sertraline 50 MG Tablet PO (07:31)
[2020-09-15 08:34] VITALS: BP 119/57; PULSE 71; RESP 16; TEMP 36.5; O2SAT 98
[2020-09-15] MEDS: Lacosamide 100 MG Tablet PO ×2 (10:14→21:02)
[2020-09-15 19:17] VITALS: BP 129/63; PULSE 69; RESP 17; TEMP 36.8; O2SAT 97
[2020-09-15] MEDS: Loperamide 2 MG Capsule PO (20:55)
[2020-09-15] MEDS: Atenolol 25 MG Tablet PO (21:02)
[2020-09-15] MEDS: traZODone 50 MG Tablet PO (21:02)
[2020-09-15] MEDS: Carbamide Peroxide 15 ML Bottle 5 DRP OTIC (21:03)
[2020-09-15 22:00] VITALS: RESP 17; O2SAT 68
[2020-09-16] MEDS: Acetaminophen 650 MG/20 ML UDC 975 MG PO ×3 (05:44→22:04)
[2020-09-16] MEDS: Levothyroxine 25 MCG TABLET PO (05:44)
[2020-09-16 06:44] VITALS: BP 103/65; BP 116/58; BP 93/60; PULSE 68; PULSE 69; PULSE 75
[2020-09-16 08:58] VITALS: BP 108/64; PULSE 69; RESP 18; TEMP 36.8; O2SAT 96
[2020-09-16] MEDS: Magnesium Chloride 64 MG Delay Rel.Tablet 128 MG PO (10:55)
[2020-09-16] MEDS: Sertraline 50 MG Tablet PO (10:55)
[2020-09-16] MEDS: Pantoprazole Sodium 20 MG Tablet PO (10:56)
[2020-09-16] MEDS: Lacosamide 100 MG Tablet PO ×2 (10:56→22:14)
[2020-09-16] MEDS: Fluticasone/Salmeterol 232-14 Inhaler 1 PUFF IH (10:57)
[2020-09-16 19:46] VITALS: BP 134/56; PULSE 65; RESP 16; TEMP 36.8; O2SAT 98
[2020-09-16] MEDS: traZODone 50 MG Tablet PO (22:07)
[2020-09-16] MEDS: Carbamide Peroxide 15 ML Bottle 5 DRP OTIC (22:07)
[2020-09-16] MEDS: Atenolol 25 MG Tablet PO (22:08)
[2020-09-17] MEDS: Levothyroxine 25 MCG TABLET PO (05:28)
[2020-09-17 06:00] VITALS: BP 117/61; BP 121/59; BP 95/51; PULSE 59; PULSE 64; PULSE 71
[2020-09-17] MEDS: Acetaminophen 650 MG/20 ML UDC 975 MG PO ×3 (06:00→22:25)
[2020-09-17 08:40] VITALS: BP 124/64; PULSE 64; RESP 15; TEMP 36.5; O2SAT 97
[2020-09-17] MEDS: Magnesium Chloride 64 MG Delay Rel.Tablet 128 MG PO (10:41)
[2020-09-17] MEDS: Pantoprazole Sodium 20 MG Tablet PO (10:41)
[2020-09-17] MEDS: Sertraline 50 MG Tablet PO (10:41)
[2020-09-17] MEDS: Lacosamide 100 MG Tablet PO ×2 (10:41→22:25)
[2020-09-17] MEDS: Fluticasone/Salmeterol 232-14 Inhaler 1 PUFF IH (10:44)
[2020-09-17 21:07] VITALS: BP 112/59; PULSE 73; RESP 16; TEMP 36.8; O2SAT 97
[2020-09-17] MEDS: Atenolol 25 MG Tablet PO (22:27)
[2020-09-17] MEDS: traZODone 50 MG Tablet PO (22:28)
[2020-09-18 05:29] VITALS: BP 102/57; BP 110/62; BP 84/54; PULSE 70; PULSE 73; PULSE 83
[2020-09-18] MEDS: Levothyroxine 25 MCG TABLET PO (05:37)
[2020-09-18] MEDS: Acetaminophen 650 MG/20 ML UDC 975 MG PO ×3 (05:38→20:29)
[2020-09-18] MEDS: Magnesium Chloride 64 MG Delay Rel.Tablet 128 MG PO (07:41)
[2020-09-18] MEDS: Pantoprazole Sodium 20 MG Tablet PO (07:42)
[2020-09-18] MEDS: Sertraline 50 MG Tablet PO (07:44)
[2020-09-18 08:09] VITALS: BP 102/57; PULSE 70; RESP 16; TEMP 36.7; O2SAT 96
[2020-09-18] MEDS: Lacosamide 100 MG Tablet PO ×2 (09:44→20:28)
[2020-09-18 10:10] LABS: Hematocrit 34.3 % (40-54); Hemoglobin 11.1 g/dL (13.0-16.5)
[2020-09-18 10:48] LABS: Thyroid Stim Hormone (TSH) 1.32 uIU/mL (0.358-3.74)
--- NOTE | 2020-09-18 13:21 | PCM.PROGNOTE ---
Patient Problems: Active and Suspected Problems (Last Reviewed 09/08/20 @ 13:[address] Tg Wright, ) Subdural hematoma (Acute) TBI (traumatic brain injury) (Acute) Status post craniectomy (Acute) 08/29/20 for SDH evacuation Hypothyroidism (Acute) Subjective: Afebrile VSS he is still orthostatic today. Lisinopril has been held for the past few days. Maintaining appropriate oxygen saturation on RA Oral intake is good Discussed with nursing - no problems that need addressed Reviewed the PT/OT/ST notes - he is having difficulty with planning and sequencing. Trouble with remembering the name of his medications. Medication list reviewed. He is sleeping better at night with the addition of the Trazodone......Melatonin was not helpful. All labs personally reviewed. TSH is normal at 1.32 and his random cortisol is 15.6. Hemoglobin is stable at 11.1. Asad is very drowsy today....I was not able to arouse him this afternoon by calling his name and shaking his foot. He was able to do therapy for 3 hours however. HE has not been eating or drinking well. Lying flat in bed with no tachypnea and no labored respirations Lungs are CTA HRRR, no gallop and no ectopy no edema no focal motor deficits - Physical Exam Vitals/I&O's: Vital Signs Temp Pulse Resp BP Pulse Ox 98.0 F 70 16 102/57 L 96 09/18/20 08:09 09/18/20 08:09 09/18/20 08:09 09/18/20 08:09 09/18/20 08:09 Oxygen Delivery Method Room Air Weight: 186 lb 4.65 oz Body Mass Index (BMI) 29.5 Orthostatic Vital Signs Start: 09/15/20 06:46 Freq: q24h Status: Active Protocol: Activity Type Activity Date Activity User E-Sign Co-Sign Detail Recorded Client Recorded Date Recorded By Document 09/18/20 05:29 [facility] [id number] 09/18/20 05:34 [facility] 09/18/20 05:29 Orthostatic Vitals Standing -Blood Pressure (90/60-120/80 mm Hg) 84/54 L -Extremity Use Left Arm -Pulse Rate (60-100 beats/min) 83 Sitting -Blood Pressure (90/60-120/80 mm Hg) 110/62 -Extremity Use Left Arm -Pulse Rate (60-100 beats/min) 73 Lying -Blood Pressure (90/60-120/80 mm Hg) 102/57 L -Extremity Use Left Arm -Pulse Rate (60-100 beats/min) 70 Intake and Output for Last 24 Hours 09/16/20 09/17/20 09/18/20 23:59 23:59 23:59 Intake Total 1300 / 1300 1460 / 1460 740 / 740 Output Total 450 / 450 1100 / 1100 200 / 200 Balance 850 / 850 360 / 360 540 / 540 Laboratory Results 09/18/20 09:58: Hgb 11.1 L, Hct 34.3 L 09/18/20 09:58: TSH 1.32 09/18/20 09:58: Cortisol 15.60 Current Medications Acetaminophen (Acetaminophen 650 Mg/20 Ml Udc) 975 mg PO Q8 [facility] Last Admin: 09/18/20 05:38 Dose: 975 mg Documented by: Albuterol Sulfate (Albuterol Sulfate 8 Gm Inhaler (60 Puffs)) 1 - 2 puff INHALATION Q4H PRN PRN PRN Reason: Asthma Last Admin: 09/13/20 22:02 Dose: 2 puff Documented by: Atenolol (Atenolol 25 Mg Tablet) 12.5 mg PO QHS [facility] Bisacodyl (Bisacodyl 10 Mg Suppository) 10 mg RECTAL .PRN X 1 PRN PRN Reason: Constipation Dronabinol (Dronabinol 2.5 Mg Capsule) 2.5 mg PO BIDAC [facility] Flunisolide (Flunisolide 0.025% 25 Ml Nasal.Sry) 1 - 2 spray NASAL Q6H PRN PRN PRN Reason: ALLERGIES Last Admin: 09/17/20 10:44 Dose: 1 spray Documented by: Lacosamide (Lacosamide 100 Mg Tablet) 100 mg PO BID [facility] Stop: 10/08/20 10:01 Last Admin: 09/18/20 09:44 Dose: 100 mg Documented by: Levothyroxine Sodium (Levothyroxine 25 Mcg Tablet) 25 mcg PO DAILY@0600 [facility] Last Admin: 09/18/20 05:37 Dose: 25 mcg Documented by: Loperamide HCl (Loperamide 2 Mg Capsule) 2 mg PO Q4H PRN PRN PRN Reason: LOOSE STOOLS Last Admin: 09/15/20 20:55 Dose: 2 mg Documented by: Loratadine (Loratadine 10 Mg Tablet) 10 mg PO DAILY PRN PRN Reason: ALLERGIES Magnesium Chloride (Magnesium Chloride 64 Mg Delay Rel.Tablet) 128 mg PO DAILY [facility] Last Admin: 09/18/20 07:41 Dose: 128 mg Documented by: Magnesium Hydroxide (Magnesium Hydroxide 30 Ml Udc) 30 ml PO .PRN X 1 PRN PRN Reason: Constipation Pantoprazole Sodium (Pantoprazole Sodium 20 Mg Tablet) 20 mg PO DAILY [facility] Last Admin: 09/18/20 07:42 Dose: 20 mg Documented by: Fluticasone/Salmeterol (Fluticasone/Salmeterol 250/50 Inhaler) 1 puff INHALATION DAILY [facility] Sertraline HCl (Sertraline 50 Mg Tablet) 50 mg PO DAILY [facility] Last Admin: 09/18/20 07:44 Dose: 50 mg Documented by: Trazodone HCl (Trazodone 50 Mg Tablet) 50 mg PO QHS [facility] Last Admin: 09/17/20 22:28 Dose: 50 mg Documented by: Medical Necessity - Tobacco Use Smoking Status: Never smoker Tobacco Use: Non-smoker Assessment/Plan All Active Problems (Last Reviewed 09/08/20 @ 13:[address] Tg Wright DO) Subdural hematoma (Acute) TBI (traumatic brain injury) (Acute) Status post craniectomy (Acute) Hypothyroidism (Acute) Impressions 1. physical debility due to recent traumatic SDH with midline shift and craniectomy on 08/29/20 to evacuate the clot. He had delirium post -op. 2. Left side SDH 3. TBI 4. S/P left side craniectomy on 08/29/20 at [facility] 5. GERD with dysphagia with solids....mostly with dry solids and large pills 6. possible achalasia-has had esophageal dilation in the past by Dr. Monson 7. Hypothyroidism 8. peripheral neuropathy in the feet - did not tolerate Neurontin and the [facility] will not [facility] for Lyrica 9. Stage I diastolic dysfunction 10. Mild to moderate nonrheumatic tricuspid regurgitation 11. Mild pulmonary hypertension with a PA systolic of 42 on an echocardiogram in 2018 12. History of prostate cancer-treated with XRT 13. History of lumbar canal stenosis-status post lumbar fusion in 2018 at the [facility] 14. Allergic rhinitis 15. Asthma 16. Chronic venous insufficiency of the lower extremities-mild 17. History of nephrolithiasis 18. HTN? Pt denies but, he is on Norvasc 7.5 mg daily currently and his pressure is mildly elevated today. He is also on Propanolol 10 mg Q 6H 19. hearing loss left ear - likely due to a cerumen impaction 20. Hypophosphatemia 21. Borderline low magnesium 22. orthostatic hypotension Add Marinol to stimulate the appetite......first dose prior to supper Inpatient E&M: [id number] Subs Hosp L2
[2020-09-18] MEDS: Dronabinol 2.5 MG Capsule PO (16:32)
[2020-09-18 19:31] VITALS: BP 128/64; PULSE 65; RESP 18; TEMP 36.5; O2SAT 98
[2020-09-18] MEDS: traZODone 50 MG Tablet PO (20:28)
[2020-09-18] MEDS: Atenolol 25 MG Tablet 12.5 MG PO (20:29)
[2020-09-18 20:35] VITALS: PULSE 64; RESP 18; O2SAT 98
--- NOTE | 2020-09-19 01:21 | NURSING ---
Reviewed and agree with CENTRAL STERILIZATION TECHNICIAN documentation & charting.
[2020-09-19] MEDS: Acetaminophen 650 MG/20 ML UDC 975 MG PO ×3 (05:19→19:58)
[2020-09-19] MEDS: Levothyroxine 25 MCG TABLET PO (05:19)
[2020-09-19] MEDS: Dronabinol 2.5 MG Capsule PO ×2 (07:33→19:59)
[2020-09-19] MEDS: Sertraline 50 MG Tablet PO (07:34)
[2020-09-19] MEDS: Pantoprazole Sodium 20 MG Tablet PO (07:34)
[2020-09-19] MEDS: Magnesium Chloride 64 MG Delay Rel.Tablet 128 MG PO (07:34)
[2020-09-19 08:04] VITALS: BP 112/59; PULSE 66; RESP 16; TEMP 37; O2SAT 99
[2020-09-19] MEDS: Lacosamide 100 MG Tablet PO ×2 (09:35→19:59)
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
[2020-09-19 11:18] VITALS: BP 112/59; BP 114/69; BP 94/58; PULSE 66; PULSE 71; PULSE 83
[2020-09-19] MEDS: Dext 5%-0.45% NS 1,000 ML 100 ML IV ×2 (11:28→23:33)
[2020-09-19 19:45] VITALS: BP 115/63; PULSE 64; RESP 20; TEMP 36.8; O2SAT 96
[2020-09-19 22:00] VITALS: BP 115/63; PULSE 84; RESP 20; TEMP 36.8; O2SAT 96
[2020-09-20] MEDS: Acetaminophen 650 MG/20 ML UDC 975 MG PO ×2 (05:44→14:27)
[2020-09-20] MEDS: Levothyroxine 25 MCG TABLET PO (05:45)
[2020-09-20 06:10] LABS: Hematocrit 34.8 % (40-54); Hemoglobin 11.1 g/dL (13.0-16.5); Mean Corp Hgb Conc 31.9 g/dL (32-36); Mean Corpuscular Hgb 30.7 pg (27.0-32.0); Mean Corpuscular Volume 96.4 fL (80-94); Mean Platelet Vol. 11.3 fl (6.2-12.0); Platelet Count 249 K/mm3 (150-450); RBC Distribution Width CV 13.4 % (11.6-14.6); RBC Distribution Width SD 47.6 fl (35.1-43.9); Red Blood Count 3.61 M/mm3 (4.6-6.2)
[2020-09-20 06:37] LABS: ALB/GLOB Ratio 0.9 RATIO (0.9-2.4); AST(SGOT) 14 U/L (15-37); Alanine Aminotransfer ALT/SGPT 19 U/L (16-61); Alkaline Phosphatase 51 U/L (45-117); Anion Gap 3 (5-15); BUN 10 mg/dL (7-18); Calcium,Total 8.2 mg/dL (8.5-10.1); Chloride 111 mmol/L (98-107); EST Glomerular Filtration Rate 76 mL/min (>60); Est Glom Filt Rate - Afr Amer 92 mL/min (>60); Estimated Creatinine Clearance 55.97 ml/min; Globulin 3.5 g/dL (2.2-4.2); Glucose 104 mg/dL (74-106); Magnesium 1.9 mg/dL (1.6-2.6); Phosphorus 2.9 mg/dL (2.5-4.9); Potassium 3.7 mmol/L (3.5-5.1); Protein, Total 6.5 g/dL (6.4-8.2); Sodium Level 141 mmol/L (136-145)
[2020-09-20] MEDS: Magnesium Chloride 64 MG Delay Rel.Tablet 128 MG PO (08:32)
[2020-09-20] MEDS: Sertraline 50 MG Tablet PO (08:32)
[2020-09-20] MEDS: Pantoprazole Sodium 20 MG Tablet PO (08:33)
[2020-09-20 08:35] VITALS: BP 117/69; PULSE 61; RESP 16; TEMP 37.5; O2SAT 94
[2020-09-20] MEDS: Lacosamide 100 MG Tablet PO (10:48)
[2020-09-20 11:00] VITALS: BP 119/61; BP 129/68; BP 133/59; PULSE 60; PULSE 62; PULSE 69
[2020-09-20 11:16] VITALS: TEMP 36.6
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
[2020-09-20 13:04] VITALS: BP 114/69; PULSE 61; RESP 16; TEMP 36.6; O2SAT 94
--- NOTE | 2020-09-20 14:13 | DS.PCM_ITS ---
Discharge Date and Diagnosis - Problem List Patient Problems: Active and Suspected Problems (Last Reviewed 09/08/20 @ 13:[address] Tg Wright DO) Subdural hematoma (Acute) TBI (traumatic brain injury) (Acute) Status post craniectomy (Acute) 08/29/20 for SDH evacuation Date of Admission: 09/08/20 Date of Discharge: 09/20/20 - Primary Discharge Diagnosis Acute Problems: Active Problems (Last Reviewed 09/08/20 @ 13:[address] Tg Wright DO) Subdural hematoma (Acute) TBI (traumatic brain injury) (Acute) Status post craniectomy (Acute) 08/29/20 for SDH evacuation Cognitive dysfunction Visual disturbance Orthostatic Hypotension Bradycardia - suspected to be due to Vimpat Dehydration-resolved Inanition Acute blood loss anemia Hypomagnesemia-resolved Hypophosphatemia-resolved Hearing loss left ear - possibly due to cerumen impaction/or dried blood in the L EAC Suspected Problems: MAHENDRA - he snores and has pulmonary HTN on his ECHO - Secondary Discharge Diagnosis Chronic Problems: Chronic Problems (Last Reviewed 09/08/20 @ 13:[address] Tg Wright DO) Dysphagia (Chronic) History of spinal stenosis (Chronic) Left bundle branch block (Chronic) Peripheral neuropathy (Chronic) in his BL feet that started after Lumbar surgery for canal stenosis Grade I diastolic dysfunction (Chronic) On echocardiogram in 2018 Mild pulmonary hypertension (Chronic) Pulmonary artery systolic pressure was estimated at 42 mmHg on an echocardiogram done in January 2018 Tricuspid regurgitation (Chronic) Mild to moderate Allergic rhinitis (Chronic) History of nephrolithiasis (Chronic) History of prostate cancer (Chronic) had XRT Snoring (Chronic) - possible MAHENDRA? Hypothyroidism (Chronic) Asthma (Chronic) Venous insufficiency (Chronic) mild GERD (gastroesophageal reflux disease) (Chronic) possible achalasia - per Dr. Martinez office notes with increased pressures on manometry. He is supposed to have a dilation by Dr. Monson. Hospital Course and Treatment Imaging Results: Laboratory Last Values WBC 4.0 K/mm3 (4.4-11.0) L 09/20/20 05:16 RBC 3.61 M/mm3 (4.6-6.2) L 09/20/20 05:16 Hgb 11.1 g/dL (13.0-16.5) L 09/20/20 05:16 Hct 34.8 % (40-54) L 09/20/20 05:16 MCV 96.4 fL (80-94) H 09/20/20 05:16 MCH 30.7 pg (27.0-32.0) 09/20/20 05:16 MCHC 31.9 g/dL (32-36) L 09/20/20 05:16 RDW Std Deviation 47.6 fl (35.1-43.9) H 09/20/20 05:16 RDW Coeff of Ebonie 13.4 % (11.6-14.6) 09/20/20 05:16 Plt Count 249 K/mm3 (150-450) 09/20/20 05:16 MPV 11.3 fl (6.2-12.0) 09/20/20 05:16 Sodium 141 mmol/L (136-145) 09/20/20 05:16 Potassium 3.7 mmol/L (3.5-5.1) 09/20/20 05:16 Chloride 111 mmol/L (98-107) H 09/20/20 05:16 Carbon Dioxide 27.0 mmol/L (21.0-32.0) 09/20/20 05:16 Anion Gap 3 (5-15) L 09/20/20 05:16 BUN 10 mg/dL (7-18) 09/20/20 05:16 Creatinine 1.00 mg/dL (0.70-1.30) 09/20/20 05:16 Estim Creat Clear Calc 55.97 ml/min 09/20/20 05:16 Est GFR (MDRD) Af Amer 92 mL/min (>60) 09/20/20 05:16 Est GFR (MDRD) Non-Af 76 mL/min (>60) 09/20/20 05:16 BUN/Creatinine Ratio 10.0 RATIO (10-20) 09/20/20 05:16 Glucose 104 mg/dL (74-106) 09/20/20 05:16 Calcium 8.2 mg/dL (8.5-10.1) L 09/20/20 05:16 Phosphorus 2.9 mg/dL (2.5-4.9) 09/20/20 05:16 Magnesium 1.9 mg/dL (1.6-2.6) 09/20/20 05:16 Total Bilirubin 0.40 mg/dL (0.20-1.00) 09/20/20 05:16 AST 14 U/L (15-37) L 09/20/20 05:16 ALT 19 U/L (16-61) 09/20/20 05:16 Alkaline Phosphatase 51 U/L (45-117) 09/20/20 05:16 Total Protein 6.5 g/dL (6.4-8.2) 09/20/20 05:16 Albumin 3.0 g/dL (3.2-5.0) L 09/20/20 05:16 Globulin 3.5 g/dL (2.2-4.2) 09/20/20 05:16 Albumin/Globulin Ratio 0.9 RATIO (0.9-2.4) 09/20/20 05:16 TSH 1.32 uIU/mL (0.358-3.74) 09/18/20 09:58 Cortisol 15.60 ug/dL (3.44-22.45) 09/18/20 09:58 none Operations: None Procedures: None Summary of Care Provided: Asad Ott is an 84 year old M with a past medical history of GERD, esophageal stenosis (abnormal manometry/possible achalasia), hypothyroidism, peripheral neuropathy in his feet since lumbar fusion, history of nephrolithiasis, history of a lumbar fusion at the [facility], hx of Prostate CA treated with XRT, stage I diastolic dysfunction, mild to moderate nonrheumatic tricuspid regurgitation, mild pulmonary hypertension, asthma, allergic rhinitis and a BBB who presented to the ED at [facility] on 08/25/20 c/o a RODRIGUEZ. He had struck his head numerous times on his truck mirror and a IN CTB showed a acute left-sided subdural hematoma overlying the left frontal, parietal and occipital lobes with a 2 mm midline shift of the brain. He was on no antiplatelet agents and no anticoagulants at the time he presented to the emergency department. CT of the neck showed multilevel degenerative changes with no fracture or dislocation. He was transferred to [facility] and underwent L side craniectomy on 08/29/2020 to evacuate the subdural hematoma. He was transferred to [facility] acute inpatient rehab on 09/08/2020 for greater than 3 hours of therapy daily to restore him at or near his prior level of independence. He lives by himself and is a . His son Allen lives in [place] and is very supportive of his dad. He plans on Returning home post rehab and his son Asad will be staying with him 19/05 for a few weeks to assist him. His primary complaints at admission were generalized weakness and some trouble with word finding. He also complained of some difficulty swallowing dry chunks of food and large pills which predated the SDH. He was on Vimpat for seizure prophylaxis at the time of admission to the rehab unit. He had no seizures while in the rehab unit. He had bradycardia and orthostatic hypotension. Propanolol and amlodipine were discontinued. The bradycardia and orthostatic hypotension persisted. On 09/19/20 his mucous membranes were very dry and he received 2 liters of D51/2 NS. The following morning he was still orthostatic but he was asymptomatic and the MM were moist. The visual disturbance he c/o the day before had improved somewhat and he was more alert. His HR only increased from 60 lying to 69 standing and this is likely secondary to the Vimpat which can cause bradycardia and since Asad has a pre-existing conduction abnormality this was very concerning. I decreased the Vimpat to 50 mg BID at AL and instructed his family in how to detect seizures. Asad was instructed to not drive and not operate heavy machinery until cleared by Dr. Anthony. Asad has no hx of HTN. I suspect the orthostatic hypotension is related to the inability to increase the HR while standing due to Vimpat. Asad had a poor appetite when he came to us and this persisted for several days. He lost approximately 16 pounds during his admission to rehab. He was started on Marinol 2.5 mg at at bedtime and his appetite has significantly improved. The marinol was also helpful in treating his chronic insomnia. He did not experience any daytime drowsiness with the Marinol. He did quite well in therapy and prior to AL was ambulating with a straight cane 225 ft on various surfaces at [facility] assist for safety. He was able to ascend and descend 5 steps with 2 rails at [facility]. He was supervision/set up with grooming, bathing, upper and lower body dressing, toilet transfer and toileting. and tub/shower transfer. He was tolerating a regular texture thin liquid diet with no difficulty but was instructed to take small bite, small sips at a slow rate while sitting upright at 90 degrees. He was instructed not to use a straw. He will remain upright for 30 minutes after eating. He was completing therapeutic tasks of completing a checkbook register with approximately 50% accuracy with moderate visual and verbal cues. He demonstrated knowledge of current medications with approximately 50% accuracy independently. He was completing varying recall tasks with an average of 70% accuracy. Prior to DC HHC for PT/OT/ST was arranged by the . His son Asad will be staying with his dad for as long as necessary. He will follow up with Dr. Gracia in 7-[address] Ned Anthony in 2 weeks. Asad will use a cane for ambulation to help with balance. He was discharged on 09/20/20 in good condition. RX's were faxed to [facility]. Alert, oriented x3, appropriate, normal affect Mucous membranes are moist. No mucosal or gingival lesions. No jugular vein distention, no cervical nodes, the neck is supple Lungs-clear to auscultation Heart-regular rate and rhythm with no murmur, no gallop and no rub. Abdomen-soft, nontender, nondistended, normal bowel sounds present, no guarding with palpation, no bladder distention No peripheral edema, no calf tenderness No rashes and no skin breakdown The scalp incision on the left side of the head is intact. [place] have been removed. There is no corrine-incisional erythema and no discharge or bleeding from the incision. Cranial nerves II through XII are grossly intact. No focal neurologic deficits This note was generated with allyve dictation software. It may contain incorrect words, spelling, and punctuation that were not noted in checking the note before signing. [] Patient Problems: Active and Suspected Problems (Last Reviewed 09/08/20 @ 13:[address] Tg Wright DO) Subdural hematoma (Acute) TBI (traumatic brain injury) (Acute) Status post craniectomy (Acute) 08/29/20 for SDH evacuation - Physical Exam Vitals/I&O's: Vital Signs Temp Pulse Resp BP Pulse Ox 97.8 F 60 16 133/59 H 94 09/20/20 11:16 09/20/20 11:00 09/20/20 08:35 09/20/20 11:00 09/20/20 08:35 Oxygen Delivery Method Room Air Weight: 184 lb 1.376 oz Body Mass Index (BMI) 29.5 Orthostatic Vital Signs Start: 09/15/20 06:46 Freq: q24h Status: Active Protocol: Activity Type Activity Date Activity User E-Sign Co-Sign Detail Recorded Client Recorded Date Recorded By Document 09/20/20 11:00 [facility] [id number] 09/20/20 11:17 [facility] 09/20/20 11:00 Orthostatic Vitals Standing -Blood Pressure (90/60-120/80 mm Hg) 119/61 -Extremity Use Right Arm -Pulse Rate (60-100 beats/min) 69 Sitting -Blood Pressure (90/60-120/80 mm Hg) 129/68 H -Extremity Use Right Arm -Pulse Rate (60-100 beats/min) 62 Lying -Blood Pressure (90/60-120/80 mm Hg) 133/59 H -Extremity Use Right Arm -Pulse Rate (60-100 beats/min) 60 Intake and Output for Last 24 Hours 09/18/20 09/19/20 09/20/20 23:59 23:59 23:59 Intake Total 1100 / 1100 2318.33 / 2318.33 1780 / 1780 Output Total 900 / 900 450 / 450 Balance 200 / 200 1868.33 / 1868.33 178 / 1780 Laboratory Results 09/20/20 05:16: WBC 4.0 L, RBC 3.61 L, Hgb 11.1 L, Hct 34.8 L, MCV 96.4 H, MCH 30.7, MCHC 31.9 L, RDW Std Deviation 47.6 H, RDW Coeff of Ebonie 13.4, Plt Count 249, MPV 11.3 09/20/20 05:16: Sodium 141, Potassium 3.7, Chloride 111 H, Carbon Dioxide 27.0, Anion Gap 3 L, BUN 10, Creatinine 1.00, Estim Creat Clear Calc 55.97, Est GFR (MDRD) Af Amer 92, Est GFR (MDRD) Non-Af 76, BUN/Creatinine Ratio 10.0, Glucose 104, Calcium 8.2 L, Phosphorus 2.9, Magnesium 1.9, Total Bilirubin 0.40, AST 14 L, ALT 19, Alkaline Phosphatase 51, Total Protein 6.5, Albumin 3.0 L, Globulin 3.5, Albumin/Globulin Ratio 0.9 Current Medications Acetaminophen (Acetaminophen 650 Mg/20 Ml Udc) 975 mg PO Q8 [facility] Last Admin: 09/20/20 05:44 Dose: 975 mg Documented by: Albuterol Sulfate (Albuterol Sulfate 8 Gm Inhaler (60 Puffs)) 1 - 2 puff INHALATION Q4H PRN PRN PRN Reason: Asthma Last Admin: 09/13/20 22:02 Dose: 2 puff Documented by: Bisacodyl (Bisacodyl 10 Mg Suppository) 10 mg RECTAL .PRN X 1 PRN PRN Reason: Constipation Dronabinol (Dronabinol 2.5 Mg Capsule) 2.5 mg PO QHS [facility] Last Admin: 09/19/20 19:59 Dose: 2.5 mg Documented by: Flunisolide (Flunisolide 0.025% 25 Ml Nasal.Sry) 1 - 2 spray NASAL Q6H PRN PRN PRN Reason: ALLERGIES Last Admin: 09/17/20 10:44 Dose: 1 spray Documented by: Hydralazine HCl (Hydralazine 25 Mg Tablet) 25 mg PO Q6H PRN PRN PRN Reason: sys>160 ABEL>85 Lacosamide (Lacosamide 100 Mg Tablet) 100 mg PO BID [facility] Stop: 10/08/20 10:01 Last Admin: 09/20/20 10:48 Dose: 100 mg Documented by: Levothyroxine Sodium (Levothyroxine 25 Mcg Tablet) 25 mcg PO DAILY@0600 [facility] Last Admin: 09/20/20 05:45 Dose: 25 mcg Documented by: Loperamide HCl (Loperamide 2 Mg Capsule) 2 mg PO Q4H PRN PRN PRN Reason: LOOSE STOOLS Last Admin: 09/15/20 20:55 Dose: 2 mg Documented by: Loratadine (Loratadine 10 Mg Tablet) 10 mg PO DAILY PRN PRN Reason: ALLERGIES Magnesium Chloride (Magnesium Chloride 64 Mg Delay Rel.Tablet) 128 mg PO DAILY [facility] Last Admin: 09/20/20 08:32 Dose: 128 mg Documented by: Magnesium Hydroxide (Magnesium Hydroxide 30 Ml Udc) 30 ml PO .PRN X 1 PRN PRN Reason: Constipation Pantoprazole Sodium (Pantoprazole Sodium 20 Mg Tablet) 20 mg PO DAILY [facility] Last Admin: 09/20/20 08:33 Dose: 20 mg Documented by: Fluticasone/Salmeterol (Fluticasone/Salmeterol 250/50 Inhaler) 1 puff INHALATION DAILY [facility] Last Admin: 09/20/20 08:33 Dose: 1 puff Documented by: Sertraline HCl (Sertraline 50 Mg Tablet) 50 mg PO DAILY [facility] Last Admin: 09/20/20 08:32 Dose: 50 mg Documented by: Sodium Chloride (0.9% Saline Lock 10 Ml Syringe) 10 ml IV BID PRN PRN Reason: SALINE FLUSH Discharge Activity: May Not Drive - until released by neurosurgery, - - Use a cane. No climbing ladders, use a shower chair when in the shower. Get up slowly when going from lying to sitting and sitting to standing and wait a minute before you start walking. If you are dizzy sit down. Weight Bearing Status: Full weight bearing Additional Activity Instructions:: Do the exercises given to you by the therapists twice a day. Do NOT go back to working until you are released by the surgeon. Call your doctor if your incision/area has: Sudden Increased Bleeding, Increased Pain/ Swelling, Increased Redness, Foul Smelling Discharge, Swelling at the incision site Call your doctor if you observe: Fever of 101 or Higher, Inability to urinate, Inability to have a bowel movement, Shortness of breath, Dizziness, Fainting spells, Chest pain, Increased palpitations (irregular heartbeat), Calf discomfort, Uncontrolled pain, - Cleanse incision/area with: Soap & Water Home Medications: Medications to take at Discharge Albuterol IH (ProAir) [Proair Hfa] 1 - 2 puff INHALATION Q4H PRN PRN 11/18/13 Fluticasone/Salmeterol [Advair 250/50 Mcg Diskus] 1 puff INHALATION DAILY 11/18/13 Vitamin B Complex 1 ea PO DAILY 02/15/18 levothyroxine 25 mcg tablet 25 mcg PO DAILY #90 tab 06/25/19 Melatonin 6 mg PO QHS 09/08/20 Acetaminophen Liquid [Tylenol Liquid] 975 mg PO Q8H PRN #16 oz 09/20/20 Dronabinol [Marinol] 2.5 mg PO QHS #30 cap 09/20/20 Flunisolide 0.025% [Nasarel Nose [place]] 1 - 2 spray NASAL Q6H PRN PRN #1 bottle 09/20/20 Lacosamide [Vimpat] 50 mg PO BID #60 tab 09/20/20 Loperamide [Imodium] 2 mg PO Q4H PRN PRN cap 09/20/20 Loratadine [Claritin] 10 mg PO DAILY PRN #30 tab 09/20/20 Magnesium Chloride [Slow-Mag] 71.5 mg PO BID #60 tablet. 09/20/20 Rabeprazole Sodium [Aciphex] 20 mg PO DAILY #30 tab 09/20/20 Sertraline HCl [Zoloft] 50 mg PO DAILY #30 tab 09/20/20 Following Prescriptions Were Given to Patient: Rabeprazole Sodium [Aciphex] 20 mg PO DAILY #30 tab Loratadine [Claritin] 10 mg PO DAILY PRN #30 tab PRN Reason: ALLERGIES Transmission Status: Received by [id number] Dronabinol [Marinol] 2.5 mg PO QHS #30 cap Transmission Status: Received by [facility] Flunisolide 0.025% [Nasarel Nose [place]] 1 - 2 spray NASAL Q6H PRN PRN #1 bottle PRN Reason: Allergies Transmission Status: Received by [facility] Magnesium Chloride [Slow-Mag] 71.5 mg PO BID #60 tablet.dr [facility]: [facility] Acetaminophen Liquid [Tylenol Liquid] 975 mg PO Q8H PRN #16 oz PRN Reason: pain or temp > 100 degrees Transmission Status: Received by [facility] Lacosamide [Vimpat] 50 mg PO BID #60 tab Transmission Status: Received by [facility] Sertraline HCl [Zoloft] 50 mg PO DAILY #30 tab Transmission Status: Received by [facility] Primary Care Physician: Simona Gracia MD [Primary Care Provider] - Please follow up with your Primary Care Physician in: 7-10 days Please Follow Up With: Dr Simona Gracia Please Follow Up With: Dr Ned Anthony Neurology When: within 2 weeks Please Follow Up With: CT Thornton nuero/spine Please Follow Up With: Dr Ned Anthony Patient Instructions: Epilepsy: How Seizures Affect the Body, What is Traumatic Brain Injury? Disposition: Home with Home Health - [facility] PT/OT/ST Minutes spent on discharge:: 40 Patient Condition:: Good Medical Necessity - Tobacco Use Smoking Status: Never smoker Tobacco Use: Non-smoker Meaningful Use Info Meaningful Use Diagnoses (Choose all that apply): None applicable Inpatient E&M: [id number] [facility]
--- NOTE | 2020-09-20 16:10 | NURSING ---
discharged home with son. discharge instructions, medications and appointments reviewed with pt and son. denies questions or concerns
== END 2020-09-20 15:10 | disposition home health service (06) | DRG 949 ==
PROVIDERS: Admitting Provider Internal Medicine; PCP Family Medicine; Visit Provider Internal Medicine
DX: S06.5X9D Traumatic subdural hemorrhage with loss of consciousness of unspecified duration, subsequent encounter (principal); R47.01 Aphasia; W22.09XD Striking against other stationary object, subsequent encounter; G62.9 Polyneuropathy, unspecified; K21.9 Gastro-esophageal reflux disease without esophagitis; I27.20 Pulmonary hypertension, unspecified; J45.909 Unspecified asthma, uncomplicated; E03.9 Hypothyroidism, unspecified; Z87.820 Personal history of traumatic brain injury; R13.10 Dysphagia, unspecified; I87.2 Venous insufficiency (chronic) (peripheral); I10 Essential (primary) hypertension; H61.22 Impacted cerumen, left ear; G47.33 Obstructive sleep apnea (adult) (pediatric); I95.1 Orthostatic hypotension; E86.0 Dehydration
CPT/HCPCS: 80048; 80053; 82533; 83735; 84100; 84443; 85014; 85018; 85027; 92507; 92523; 92526; 92610; 97110; 97112; 97116; 97162; 97166; 97530; 97535; 97802; J7799

== ENCOUNTER 2020-11-24 10:32 | Outpatient (RCR) | payer MEDICARE, OTHER, SELFPAY | END 2020-11-24 23:59 | LOC: IMMUN 10:32 | PROVIDERS: PCP Family Medicine; Referring Provider Family Medicine; Visit Provider Family Medicine | DX: Z23 Encounter for immunization (principal) | CPT/HCPCS: 0011A; 0012A; 91301 ==

== ENCOUNTER → 2021-04-13 07:16 | Outpatient (CLI) | payer MEDICARE, OTHER, SELFPAY ==
--- NOTE | 2021-04-13 07:45 | MRI_ITS ---
STUDY: MRI BRAIN WITH AND WITHOUT CONTRAST (ATTENTION INTERNAL AUDITORY CANALS - I.A.C.''s) REASON FOR EXAM: Male, 85 years old. LEFT tinnitus and amp; HEARING LOSS, s/p craniotomy TECHNIQUE: Standardized multiplanar fat and water weighted pulse sequences were obtained. IV Yes YES was administered for the contrast portion of the examination. COMPARISON: None. FINDINGS: Normal bilateral temporal bones. Normal bilateral internal auditory canals. There is no demonstrated intracanalicular or cisternal vestibular schwannoma (acoustic neuroma). There is no enhancement of the bilateral VIIth or VIIIth cranial nerves. Normal bilateral cochlea, vestibules and semicircular canals. Normal size of the ventricles and extra-axial spaces for the patient''s age. Normal white matter tracts of the supratentorial brain. There is no evidence for recent intracranial ischemia or other cause of cytotoxic edema on diffusion weighted imaging (DWI). Normal bilateral basal ganglia. Normal thalami. Normal flow voids within the major intracranial circulation suggesting patency by spin echo criteria. Normal venous enhancement. There is no enhancing intra-axial or extra-axial abnormality. There is no extra-axial fluid accumulation. Normal sella turcica, pituitary gland, infundibular stalk, optic chiasm and hypothalamus. Normal tectal plate and pineal gland. Normal midbrain, jonathon and medulla. Normal cerebellum. Normal basal cisterns. There are bilateral ocular lens implants with otherwise normal intraorbital contents. There is mucoperiosteal inflammatory disease of the paranasal sinuses consistent with mild chronic sinusitis. Normal calvarium and skull base. Normal visualized soft tissue structures. Normal visualized upper cervical spine. MRI/Brain W/WO Contrast IMPRESSION: Normal unenhanced and enhanced MRI of the bilateral internal auditory canals (I.A.C''s). Electronically Signed: Drew Evangelista MD at 9:27 EDT Tel , Service support ,
[2021-04-13 07:54] LABS: CREATININE FINGERSTICK 0.9 mg/dL (0.70-1.30); EGFR FINGERSTICK > 60.0000 mL/min (>60)
== END ==
PROVIDERS: PCP Family Medicine; Referring Provider Otolaryngology; Visit Provider Otolaryngology
DX: H90.3 Sensorineural hearing loss, bilateral (principal)
CPT/HCPCS: 70553; A9575

== ENCOUNTER → 2021-10-12 11:07 | Outpatient (CLI) | payer MEDICARE, OTHER, SELFPAY ==
[2021-10-12 12:52] LABS: Anion Gap 7 (5-15); BUN 16 mg/dL (7-18); BUN/Creat Ratio 16.5 RATIO (10-20); Calcium,Total 9.2 mg/dL (8.5-10.1); Chloride 110 mmol/L (98-107); Cholesterol 148 mg/dL (200); Creatinine, Serum 0.97 mg/dL (0.70-1.30); EST Glomerular Filtration Rate 78 mL/min (>60); Est Glom Filt Rate - Afr Amer 95 mL/min (>60); Glucose 84 mg/dL (74-106); High Density Lipoprotein 52 mg/dL; Sodium Level 143 mmol/L (136-145); T4 Total, Thyroxin 8.4 ug/dL (4.5-12.1); Thyroid Stim Hormone (TSH) 2.25 uIU/mL (0.358-3.74); Triglycerides 77 mg/dL; Very Low Density Lipoprotein 15 mg/dL (5-40)
== END ==
PROVIDERS: PCP Family Medicine; Referring Provider Family Medicine; Visit Provider Family Medicine
DX: I10 Essential (primary) hypertension (principal); E03.9 Hypothyroidism, unspecified
CPT/HCPCS: 36415; 80048; 80061; 84436; 84443

== ENCOUNTER 2022-05-30 12:00 | Outpatient (RCR) | payer MEDICARE, OTHER, SELFPAY ==
--- NOTE | 2022-04-25 14:08 | HP.PTEVAL ---
Patient's Visit Information SHMUEL DIAS is a 86 year old M referred to Physical Therapy by KEVIN CERVANTES with a diagnosis of Partial R knee replacement 04/02/22. Date of Evaluation: 04/25/22 Physical Therapist: Raymon Bob, PT, ATC - Visit Plan Frequency: 2-3x /Week Duration: 4-6 Weeks Plan: R knee PROM/mobs, stretching and strengthening, balance and proprio, stair negotiation, gait training, and HEP - Subjective DOS: 04/02/2022. Pt had a R partial knee replacement at that time. Pt reports he then had 3 weeks of home health and PT up until 1 week ago. Pt notes he is glad he had the surgery at this time. Pt notes he can walk short distances now without pain, but he notes any time he ambulates on uneven terrain, there is a sharp pain. Pt reports he still carries his cane along with him, but he rarely uses it. Pt denies any LE tingling or numbness in RLE other than what was already present from his neuropathy. Pt reports occasional sleep difficulty without meds. Pt reports he has 3 stairs to enter his house which he is able to negotiate one step at a time. 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 0/10 pain at rest, 3/10 at worst (rolling over in bed) - Pain R partial knee replacement Pain Intensity (Out of 10): 0 Pain Intensity Range: 3 - Objective Neuro: B LE sensation is WNL to light touch. Girth at joint line: 44 cm. ROM: R knee 0-15-95, L knee 0-4-135. MMT: R knee flex= 31, ext= 28, L knee flex= 36, ext= 39 #F. 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 Goal Time Frame: 4-6 Weeks Goal 4:: I with HEP Goal Time Frame: 4-6 Weeks - Rehabilitation Potential Physical Therapy Diagnosis: Pt has R knee pzain, weakness, and limited ROM secondary to partial R knee replacement Rehabilitation Potential: Good - Anticipated Interventions Patient/Client Instruction: Educate patient on: Condition, Plan of Care For the Purpose of:: To improve self management Therapeutic Exercise to Include: Strength training, Endurance training, Balance training, Flexibilty training, Gait and locomotor training, Passive ROM, Active ROM, Dynamic Lumbar Stabilization For the Purpose of:: To decrease pain, To increase ROM, To improve muscle performance and motor function Cryotherapy (ice pack, ice massage): Yes For the Purpose of:: To decrease pain, To increase ROM, To improve muscle performance and motor function Thank you for the opportunity to evaluate your patient. For Medicare and Medicare HMO plans, please review the plan of care and approve it. It will need to be FAXED BACK to us at [phone] for Medicare purposes. For Medicare only, by signing this I certify the plan of care. Please let me know if there are questions or concerns regarding this plan of care. Physician Signature: Date:
--- NOTE | 2022-05-30 12:27 | HP.PTDCSUM ---
It has been my pleasure to treat SHMUEL DIAS referred by KEVIN CERVANTES, with the diagnosis of Partial R knee replacement 04/02/22 for a total of 9 visit(s). Discharge Date: Please see the following information for a summary of their discharge status. Subjective: I am stiff from doing a lot yesterday R partial knee replacement Pain Intensity (Out of 10): 1 % Improvement: 50 Objective/Function: R knee pain 11/05. R knee ROM: 0-5-115. R knee MMT: flex= 24#F, ext= 29 #F. I with HEP. 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 Thank you for the referral of this patient. Sincerely, Raymon Bob, PT, ATC Balance/Gait/Functional tests - Balance/Special Test Scores Lower Extremity Functional Score: 54
== END 2022-05-30 12:32 | disposition home or self-care (01) ==
LOC: PT 12:00
PROVIDERS: PCP Family Medicine
DX: M17.11 Unilateral primary osteoarthritis, right knee (principal)
CPT/HCPCS: 97110; 97140; 97161; 97164

== ENCOUNTER → 2022-10-25 | Outpatient (CLI) | payer MEDICARE, OTHER, SELFPAY ==
--- NOTE | 2022-10-25 12:37 | CT_ITS ---
We are attempting to reach an attending provider to discuss findings. An addendum with communication details will be sent when the communication is complete. STUDY: CT BRAIN WITHOUT CONTRAST REASON FOR EXAM: Male, 86 years old. HEMATOMA, clinical history states hit front of head last week on a tractor. History of brain bleed 2 weeks ago with hypertension. RADIATION DOSAGE (If Supplied By Facility): CTDIvol = ( 47.06 ) mGy, DLP = ( 943.26 ) mGycm TECHNIQUE: Transaxial CT imaging of the brain was performed without administration of intravenous contrast material. Individualized dose optimization techniques were used for this CT. COMPARISON: No recent comparison images have been provided. There is a prior study from August 25, 2020. FINDINGS: Normal soft tissue structures. There is a visualized prior left-sided craniectomy of the temporal lobe. There is a prior craniotomy in the left parietal lobe. There are prior janette holes. There is a prior focus of postoperative change in the left frontal bone. There is mild cerebral atrophy with widening of the extra-axial spaces and ventricular dilatation. There are enema areas of decreased attenuation within the white matter tracts of the supratentorial brain, consistent with microvascular disease changes. Normal basal ganglia and thalami. Normal brainstem. Normal cerebellum. There is a visualized focus of hyperdensity along the left parietal region underlying postoperative change .. There are no findings of an acute ischemic infarction. There is a minimal amount of mucoid material within the left maxillary sinus and ethmoid sinuses and frontal sinuses. CT/Brain/Head without Contrast IMPRESSION: Interval postoperative change in the left calvarium since August 25, 2020. When compared to the prior study August 25, 2020 there is a smaller -sided left side subdural collection measuring 1.5 mm. Compared to prior study August 25, 2020 when it measured 11.9 mm. Given the appearance cannot entirely exclude a recurrent subdural or more recent subdural collection given the patient''s reported history. There are no recent comparison images. Maxillary ethmoid and frontal sinusitis. Electronically Signed: Jazmin Benito MD at 14:45 EST ,
== END | disposition home or self-care (01) ==
LOC: CT 12:36
PROVIDERS: PCP Family Medicine; Visit Provider Family Medicine
DX: G93.89 Other specified disorders of brain (principal); G31.9 Degenerative disease of nervous system, unspecified; J32.1 Chronic frontal sinusitis; J32.2 Chronic ethmoidal sinusitis; S06.5XAA Traumatic subdural hemorrhage with loss of consciousness status unknown, initial encounter; T14.8XXA Other injury of unspecified body region, initial encounter
CPT/HCPCS: 70450

== ENCOUNTER → 2022-12-13 | Outpatient (CLI) | payer MEDICARE, OTHER, SELFPAY ==
[2022-12-13 15:48] LABS: Microalbumin,Random Urine 10.6 mg/L (NO RANGE EST.); Microalbumin:Creatinine Ratio 7.3 mg/g CRE (<30 mg/g CRE)
[2022-12-13 15:58] LABS: Anion Gap 7 (5-15); BUN 18 mg/dL (7-18); BUN/Creat Ratio 15.8 RATIO (10-20); Chloride 110 mmol/L (98-107); Cholesterol 155 mg/dL (200); Creatinine, Serum 1.14 mg/dL (0.70-1.30); EST Glomerular Filtration Rate 65 mL/min (>60); Est Glom Filt Rate - Afr Amer 78 mL/min (>60); Glucose 96 mg/dL (74-106); High Density Lipoprotein 42 mg/dL; Potassium 4.1 mmol/L (3.5-5.1); Sodium Level 142 mmol/L (136-145); T4 Total, Thyroxin 10.3 ug/dL (4.5-12.1); Thyroid Stim Hormone (TSH) 2.37 uIU/mL (0.358-3.74); Triglycerides 90 mg/dL; Very Low Density Lipoprotein 18 mg/dL (5-40)
== END | disposition home or self-care (01) ==
LOC: MFPLAB 12:04
PROVIDERS: PCP Family Medicine; Referring Provider Family Medicine; Visit Provider Family Medicine
DX: I10 Essential (primary) hypertension (principal); E03.9 Hypothyroidism, unspecified
CPT/HCPCS: 36415; 80048; 80061; 82043; 82570; 84436; 84443

== ENCOUNTER 2023-01-24 17:15 | Inpatient (IN) | payer MEDICARE, OTHER, SELFPAY ==
[2023-01-24 17:16] VITALS: BP 125/88; PULSE 125; RESP 18; TEMP 36.7; O2SAT 98; BMI 31.4
--- NOTE | 2023-01-24 17:38 | EX.ED.DYSGE1 ---
HPI History of Present Illness Chief Complaint: Abd Pain Informant: patient Narrative Narrative: Patient presents secondary to diarrhea that started yesterday and abdominal pain today. He states yesterday he had 2 separate episodes of diarrhea that seem to improve after taking some Imodium. This morning he was unable to get to the bathroom secondary to frequent diarrhea. He took 2 Imodium tabs. Around 330 this afternoon he developed upper abdominal bloating and pain. He believes he has passed gas once since then. He has not had further diarrhea. [facility] Medical History (Updated 01/25/23 @ 00:[address] Millie Ochoa MD) Asthma GERD (gastroesophageal reflux disease) GERD (gastroesophageal reflux disease) Grade I diastolic dysfunction Hiatal hernia History of nephrolithiasis History of prostate cancer History of spinal stenosis History of steroid therapy Hypertension Hypothyroidism Injury of head and neck Kidney stones Left bundle branch block Mild pulmonary hypertension Neuropathy Sleep apnea Subdural hematoma Thyroiditis Tricuspid regurgitation Home Medications albuterol sulfate 90 mcg/actuation aerosol inhaler 1 - 2 puff inhalation Q4H PRN PRN Asthma 11/18/13 [History Last Taken 01/24/23 06:00] fluticasone 250 mcg-salmeterol 50 mcg/dose blistr powdr for inhalation 1 puff inhalation DAILY breathing 11/18/13 [History Last Taken 04/12/15 05:00] levothyroxine 25 mcg tablet 25 mcg PO DAILY thyroid #90 tabs 06/25/19 [History Last Taken 01/24/23 06:00] melatonin 3 mg tablet 6 mg PO QHS sleep 09/08/20 [History Last Taken 01/23/23 22:00] flunisolide 25 mcg (0.025 %) nasal spray 1 - 2 spray NASAL Q6H PRN PRN Allergies #1 BOTTLE 09/20/20 [Rx Last Taken 01/23/23 09:00] loperamide 2 mg capsule 2 mg PO Q4H PRN PRN LOOSE STOOLS 09/20/20 [Rx Last Taken 01/24/23 06:00] loratadine 10 mg tablet 10 mg PO DAILY PRN ALLERGIES #30 tabs 09/20/20 [Rx Last Taken Unknown] amlodipine 2.5 mg tablet 2.5 mg PO DAILY blood pressure 09/05/21 [History Last Taken 01/23/23 22:00] acetaminophen 325 mg PO/SL PRN PRN Pain 01/24/23 [History Last Taken Unknown] Allergy/AdvReac Type Severity Reaction Status Date / Time naproxen [From Aleve] Allergy Intermediate Other Verified 01/24/23 17:19 grass pollen-perennial rye, Allergy Shortness Verified 01/24/23 17:19 standar of breath levofloxacin [From Levaquin] Allergy Other Verified 01/24/23 17:19 aspirin AdvReac Other Verified 01/24/23 17:19 Family History Brother Multiple sclerosis Sister Lung disease Mother CAD (coronary artery disease) Surgical History h/o lumbar surgery Hx laparoscopic cholecystectomy Hx of craniotomy Status post right partial knee replacement Social History Smoking Status: Never smoker alcohol intake: never ROS ROS ED Constitutional Constitutional ED: Denies chills or fever(s) Eyes Eyes: Denies change in vision or discharge from eye(s) ENT ENT ED: Denies discharge from eye(s), rhinorrhea or sore throat Cardiovascular Cardiovascular: Denies chest pain or palpitations Respiratory/Chest Respiratory/Chest: Denies cough or dyspnea Gastrointestinal Gastrointestinal: Reports abdominal pain and diarrhea; Denies nausea or vomiting Genitourinary Genitourinary ED: Denies difficulty urinating or dysuria Musculoskeletal Musculoskeletal: Denies back pain or extremity pain Integumentary Denies Abrasions or rash Neurologic Neurologic: Denies headache(s) or weakness Psychiatric Psychiatric: Denies anxiety or depression Allergic/Immunologic Allergic/Immunologic ED: Denies lip swelling or urticaria EXAM Physical Exam Const Vital Signs: 01/24/23 17:16 01/24/23 20:47 01/24/23 21:24 Temperature 98.0 F 98.3 F Temperature Source Temporal Temporal Pulse Rate 125 H 79 84 Respiratory Rate 18 18 18 Blood Pressure 125/88 H 141/83 H 134/80 H Blood Pressure Mean 100 102 98 Pulse Ox 98 95 95 Oxygen Delivery Method Room Air Room Air Room Air 01/24/23 22:00 Temperature Temperature Source Pulse Rate Respiratory Rate Blood Pressure 134/80 H Blood Pressure Mean 98 Pulse Ox Oxygen Delivery Method Positive well nourished and well developed General Appearance ED: well developed HEENT Reports normocephalic and head/scalp atraumatic Eyes PERRL and EOMs intact bilaterally Neck supple Chest Wall inspection of chest normal and palpation of chest normal Resp normal respiratory effort and clear to auscultation bilaterally Cardio regular rate and regular rhythm GI GI Narrative: Abdomen soft and slightly distended. Rare bowel sounds are noted. No guarding or rebound. Palpation: soft Extremity normal to inspection Neuro oriented x3 and no sensory deficits noted Sensorium / Orientation: alert Motor Exam: strength 5/5 throughout Psych mental status grossly normal Skin no rashes or lesions noted MDM MDM MDM Narrative Medical decision making narrative: Labwork obtained to evaluate for leukocytosis, anemia, and electrolyte derangement. CT scan of the abdomen pelvis obtained. Lab Data Attestation: I reviewed the patient's lab results. Labs: Laboratory Results - last 24 hr 01/24/23 01/24/23 17:50 17:50 WBC 8.5 RBC 5.14 Hgb 16.3 Hct 49.4 MCV 96.1 H MCH 31.7 MCHC 33.0 RDW Std Deviation 48.4 H RDW Coeff of Ebonie 13.8 Plt Count 294 MPV 11.0 Immature Gran % (Auto) 0.900 Neut % (Auto) 68.6 Lymph % (Auto) 13.4 [place] % (Auto) 14.5 H Eos % (Auto) 1.9 Baso % (Auto) 0.7 Absolute Neuts (auto) 5.8 Absolute Lymphs (auto) 1.14 Nucleated RBC % 0 Sodium 138 Potassium 3.9 Chloride 109 H Carbon Dioxide 24.0 Anion Gap 5 BUN 15 Creatinine 1.16 Estim Creat Clear Calc 47.20 Est GFR (MDRD) Af Amer 77 Est GFR (MDRD) Non-Af 63 BUN/Creatinine Ratio 12.9 Glucose 101 Calcium 8.9 Total Bilirubin 0.70 Direct Bilirubin 0.11 AST 37 ALT 35 Alkaline Phosphatase 61 Total Protein 8.1 Albumin 3.9 Globulin 4.2 Radiography Diagnostic Testing: Clinical Impression(s) from Imaging Studies Abdomen/Pelvis CT 01/24/23 19:40 IMPRESSION: 1. Distended small bowel, decompressed distal small bowel. Definitive lead point is not identified, however findings consistent with SBO. No free fluid free air or abscess. 2. Hiatal hernia. Distended stomach. 3. RIGHT peripelvic cyst at, 2 mm nonobstructing RIGHT ureteral stone. No evidence of obstructive uropathy. 4. Status post cholecystectomy. 5. No evidence of appendicitis. Diverticula without evidence of diverticulitis. 6. Postop changes involving lumbar spine. Electronically Signed: Drew Roberts MD at 20:36 EDT , ADDENDUM: 01/24/232043 IMPRESSION: 1. Distended small bowel, decompressed distal small bowel. Definitive lead point is not identified, however findings consistent with SBO. No free fluid free air or abscess. 2. Hiatal hernia. Distended stomach. 3. RIGHT peripelvic cyst at, 2 mm nonobstructing RIGHT ureteral stone. No evidence of obstructive uropathy. 4. Status post cholecystectomy. 5. No evidence of appendicitis. Diverticula without evidence of diverticulitis. 6. Postop changes involving lumbar spine. N.B. : The above Results were Read Back by Drew Roberts MD to Millie Ochoa MD, and understanding confirmed on 01/24/2023 20:38:00 (ET). Electronically Signed: Drew Roberts MD at 20:36 EDT , KUB X-Ray 01/24/23 21:05 IMPRESSION: 1. NG tube projects within the proximal stomach. 2. Persistent findings of gas-filled distended small bowel segments consistent with SBO. Electronically Signed: Drew Roberts MD at 21:38 EDT , Treatment and Re-Evaluation :: CBC was normal white count. Chemistry studies unremarkable. LFTs normal. Patient was given p.o. contrast but did vomit it up. He was given a dose of Zofran. CT scan obtained and reveals evidence of a small bowel obstruction. I discussed case with the radiologist. He does not see a definitive transition point. No evidence of diverticulitis or appendicitis. Test results are discussed with the patient. NG tube will be placed and I will speak with the surgeon. Dr. Desai did present to the emergency room to evaluate the patient. After reviewing the images he states the patient has stool clear through the colon and he does not feel the patient has a small bowel obstruction. He likely has a gastroenteritis causing his symptoms. After NG tube was placed greater than 1 L of output was noted. Dr. Desai will admit to his service and monitor his symptoms. Discharge Plan Dx/Rx/DC Orders Clinical Impression: Gastroenteritis Disposition Disposition: Acute Care Hospital [facility] Discharge Date/Time: 01/24/23 22:52
[2023-01-24] MEDS: 0.9% Normal Saline 1,000 ML 150 ML IV (17:51)
[2023-01-24] MEDS: Ondansetron 4 MG/2 ML Vial IV (18:02)
[2023-01-24 18:03] LABS: Absolute Lymphocyte Count 1.14 X10^3/uL (0.83-4.51); Absolute Neutrophil Count 5.8 X10^3/uL (2.0-7.7); Basophil# 0.06 X10^3/uL; Basophil% 0.7 % (0-1); Eosinophil# 0.16 X10^3/uL; Eosinophils% 1.9 % (0-5); Hematocrit 49.4 % (40-54); Hemoglobin 16.3 g/dL (13.0-16.5); Lymphocyte # 1.14 X10^3/ul (0.83-4.51); Lymphocyte % 13.4 % (19-41); Mean Corpuscular Hgb 31.7 pg (27.0-32.0); Mean Corpuscular Volume 96.1 fL (80-94); Monocyte# 1.23 X10^3/uL; Monocyte% 14.5 % (0-10); NRBC Flagged by Analyzer 0 % (0-5); Neutrophil # 5.84 X10^3/uL (2.7-7.7); Neutrophil % 68.6 % (47-70); Platelet Count 294 K/mm3 (150-450); RBC Distribution Width CV 13.8 % (11.6-14.6); RBC Distribution Width SD 48.4 fl (35.1-43.9); Red Blood Count 5.14 M/mm3 (4.6-6.2); White Blood Count 8.5 K/mm3 (4.4-11.0)
[2023-01-24 18:30] LABS: AST(SGOT) 37 U/L (15-37); Alanine Aminotransfer ALT/SGPT 35 U/L (16-61); Albumin, Serum 3.9 g/dL (3.2-5.0); Alkaline Phosphatase 61 U/L (45-117); Anion Gap 5 (5-15); BUN 15 mg/dL (7-18); BUN/Creat Ratio 12.9 RATIO (10-20); Bilirubin, Direct 0.11 mg/dL (0.00-0.30); Calcium,Total 8.9 mg/dL (8.5-10.1); Chloride 109 mmol/L (98-107); Creatinine, Serum 1.16 mg/dL (0.70-1.30); EST Glomerular Filtration Rate 63 mL/min (>60); Est Glom Filt Rate - Afr Amer 77 mL/min (>60); Globulin 4.2 g/dL (2.2-4.2); Glucose 101 mg/dL (74-106); Potassium 3.9 mmol/L (3.5-5.1); Protein, Total 8.1 g/dL (6.4-8.2); Sodium Level 138 mmol/L (136-145)
--- NOTE | 2023-01-24 19:40 | CT_ITS ---
We are attempting to reach an attending provider to discuss findings. An addendum with communication details will be sent when the communication is complete. INDICATION: abd pain -- IV PO Contrast EXAMINATION: CT ABDOMEN AND PELVIS with CONTRAST - CT Abdomen And Pelvis W/ Contrast Injection TECHNIQUE: Multiple axial images were obtained of the abdomen and pelvis following administration of IV contrast. Planar reconstructions obtained. A radiation dose optimization technique was used for this scan. RADIATION DOSAGE (If Supplied By Facility): CTDIvol = ( 15.72 ) mGy, DLP = ( 1185.33 ) mGycm IV Contrast dosage and agent: 100 mL [id number]-370 Oral contrast: Dilute Gastrografin was administered for by mouth contrast. COMPARISON: No previous relevant examinations available for comparison. FINDINGS: LOWER THORAX: Lungs are clear. Cardiac contour is normal, no pericardial effusion. No coronary vascular calcifications noted. HEPATOBILIARY: Liver: The liver is homogeneous and shows no evidence of focal lesion. Gallbladder: Surgically absent. No ductal dilatation. Pancreas: Pancreas is normal size configuration and density. No mass is noted. Spleen: The spleen is homogeneous and normal in size. . BOWEL: Stomach: Fluid-filled distended stomach is noted. Hiatal hernia is noted.. Bowel: Proximal small bowel distention is present with air-fluid levels. Distal small bowel is decompressed, lead point is not definitively identified, however findings consistent with SBO. Large bowel has normal configuration with the exception of scattered diverticula. Appendix: The visualized appendix has normal appearance.: GENITOURINARY: Adrenals: Both adrenal glands are normal in size. Kidneys: Kidneys have normal configuration, there is a 2 mm nonobstructing cyst in the RIGHT kidney. There is a parapelvic cyst measuring approximately 4.7 x 5.1 cm. LEFT kidney has normal appearance. No ureteral stones.. Bladder: Normal Pelvic organs: The visualized pelvic organs are normal in size and configuration. No masses or adenopathy noted. RETROPERITONEUM: Scattered aortic calcifications, no evidence of aortic aneurysm. LYMPH NODES: No evidence of retroperitoneal or para-aortic masses fluid collections or adenopathy. PERITONEAL CAVITY: No ascites noted ANTERIOR ABDOMINAL WALL: Normal, no hernia identified. BONES AND SOFT TISSUES: Postop changes of pedicle screw posterior fixation laminectomy defects from L3-4 to L5. No fractures or acute bony changes. No canal stenosis noted. OTHER: None CT/Abdomen/Pelvis WITH Contrast IMPRESSION: 1. Distended small bowel, decompressed distal small bowel. Definitive lead point is not identified, however findings consistent with SBO. No free fluid free air or abscess. 2. Hiatal hernia. Distended stomach. 3. RIGHT peripelvic cyst at, 2 mm nonobstructing RIGHT ureteral stone. No evidence of obstructive uropathy. 4. Status post cholecystectomy. 5. No evidence of appendicitis. Diverticula without evidence of diverticulitis. 6. Postop changes involving lumbar spine. Electronically Signed: Drew Roberts MD at 20:36 EDT ,
[2023-01-24 20:47] VITALS: BP 141/83; PULSE 79; RESP 18; O2SAT 95
[2023-01-24] MEDS: Oxymetazoline 0.05% 1 SPRAY SPRAY.BTL 2 SPRAY NASAL (21:00)
--- NOTE | 2023-01-24 21:05 | RAD_ITS ---
INDICATION: NG Insertion EXAMINATION/TECHNIQUE: X-RAY - XR Abdomen 1 View COMPARISON: CT examination of the same date FINDINGS: Tubes and lines: 1. NG tube extends into the proximal stomach.. BOWEL GAS PATTERN: Gas-filled distended small bowel segments consistent with previous CT findings of SBO. Normal appearance of the stomach. FREE AIR: Not assessed on a single supine view. ORGANOMEGALY: Not seen. CALCIFICATIONS: No abnormal calcifications observed. LOWER CHEST: No acute pathology. BONES AND SOFT TISSUES: Postoperative changes involving lower lumbar spine. No acute bony changes. RAD/Abdomen Single View (Portable) IMPRESSION: 1. NG tube projects within the proximal stomach. 2. Persistent findings of gas-filled distended small bowel segments consistent with SBO. Electronically Signed: Drew Roberts MD at 21:38 EDT ,
[2023-01-24 21:24] VITALS: BP 134/80; PULSE 84; RESP 18; TEMP 36.8; O2SAT 95
--- NOTE | 2023-01-24 21:29 | PCM.HP.STD ---
HPI - General HPI Narrative SHMUEL DIAS, is a 87 M who presents with upper abdominal pain. Patient reports that around 3 PM today he started getting bloated. He says that he had diarrhea several times this morning. He did not have any nausea or vomiting until he drank the oral contrast for the CT scan. He denies fevers or chills. He has never had a bowel obstruction in the past. He has had several abdominal surgeries including laparoscopic inguinal hernia repair and laparoscopic cholecystectomy. Patient reports passing flatus. [facility] Medical History Asthma GERD (gastroesophageal reflux disease) Grade I diastolic dysfunction History of nephrolithiasis History of prostate cancer History of spinal stenosis Hypothyroidism Left bundle branch block Mild pulmonary hypertension Neuropathy Subdural hematoma Tricuspid regurgitation Home Medications albuterol sulfate 90 mcg/actuation aerosol inhaler 1 - 2 puff inhalation Q4H PRN PRN Asthma 11/18/13 [History Last Taken Unknown] fluticasone 250 mcg-salmeterol 50 mcg/dose blistr powdr for inhalation 1 puff inhalation DAILY breathing 11/18/13 [History Last Taken 04/12/15 05:00] levothyroxine 25 mcg tablet 25 mcg PO DAILY thyroid #90 tabs 06/25/19 [History Last Taken Unknown] melatonin 3 mg tablet 6 mg PO QHS sleep 09/08/20 [History Last Taken 09/07/20] Rabeprazole Sodium [Aciphex] 20 mg PO DAILY loose stool #30 tabs 09/20/20 [Rx Last Taken Unknown] acetaminophen 650 mg/20.3 mL oral solution 975 mg (0.0341 x 650 mg/20.3 mL) PO Q8H PRN pain or temp > 100 degrees #16 oz 09/20/20 [Rx Last Taken Unknown] flunisolide 25 mcg (0.025 %) nasal spray 1 - 2 spray NASAL Q6H PRN PRN Allergies #1 BOTTLE 09/20/20 [Rx Last Taken Unknown] loperamide 2 mg capsule 2 mg PO Q4H PRN PRN LOOSE STOOLS 09/20/20 [Rx Last Taken Unknown] loratadine 10 mg tablet 10 mg PO DAILY PRN ALLERGIES #30 tabs 09/20/20 [Rx Last Taken Unknown] amlodipine 2.5 mg tablet 2.5 mg PO DAILY 09/05/21 [History Last Taken Unknown] Allergy/AdvReac Type Severity Reaction Status Date / Time naproxen [From Aleve] Allergy Intermediate Other Verified 01/24/23 17:19 grass pollen-perennial rye, Allergy Shortness Verified 01/24/23 17:19 standar of breath levofloxacin [From Levaquin] Allergy Other Verified 01/24/23 17:19 aspirin AdvReac Other Verified 01/24/23 17:19 Family History Brother Multiple sclerosis Sister Lung disease Mother CAD (coronary artery disease) Surgical History h/o lumbar surgery Hx laparoscopic cholecystectomy Hx of craniotomy Social History Smoking Status: Never smoker alcohol intake: never ROS Constitutional Constitutional: Denies anorexia, chills or fatigue Eyes Eyes: Denies blurry vision ENT HEENT: Denies abnormal hearing Cardiovascular Cardiovascular: Denies chest pain Respiratory/Chest Respiratory/Chest: Denies cough or dyspnea Gastrointestinal Gastrointestinal: Reports abdominal pain, diarrhea, nausea and vomiting; Denies constipation, dysphagia, melena or rectal bleeding Genitourinary Genitourinary: Denies change in urinary stream Musculoskeletal Musculoskeletal: Denies abnormal gait Integumentary Integumentary: Denies jaundice Neurologic Neurologic: Denies dizziness Psychiatric Psychiatric: Denies anxiety Endocrine Endocrinology: Denies heat intolerance Hematologic/Lymphatic Hematologic/Lymphatic: Denies easy bleeding Vital Signs Vital Signs Vital Signs: 01/24/23 17:16 01/24/23 20:47 Temperature 98.0 F Temperature Source Temporal Pulse Rate 125 H 79 Respiratory Rate 18 18 Blood Pressure 125/88 H 141/83 H Blood Pressure Mean 100 102 Pulse Ox 98 95 Oxygen Delivery Method Room Air Room Air Weight Weight: 219 lb 8 oz Body Mass Index (BMI) 31.4 Physical Exam Const oriented x3 and no apparent distress Resp normal respiratory effort Cardio regular rate and regular rhythm GI soft to palpation Inspection: abdominal distention Palpation: Negative for tender Extremity normal to inspection Results Lab / Micro Data Result Diagrams: 01/24/23 17:50 01/24/23 17:50 Labs: Laboratory Results - last 24 hr 01/24/23 17:50: WBC 8.5, RBC 5.14, Hgb 16.3, Hct 49.4, MCV 96.1 H, MCH 31.7, MCHC 33.0, RDW Std Deviation 48.4 H, RDW Coeff of Ebonie 13.8, Plt Count 294, MPV 11.0, Immature Gran % (Auto) 0.900, Neut % (Auto) 68.6, Lymph % (Auto) 13.4 L, [place] % (Auto) 14.5 H, Eos % (Auto) 1.9, Baso % (Auto) 0.7, Absolute Neuts (auto) 5.8, Absolute Lymphs (auto) 1.14, Nucleated RBC % 0 01/24/23 17:50: Sodium 138, Potassium 3.9, Chloride 109 H, Carbon Dioxide 24.0, Anion Gap 5, BUN 15, Creatinine 1.16, Estim Creat Clear Calc 47.20, Est GFR (MDRD) Af Amer 77, Est GFR (MDRD) Non-Af 63, BUN/Creatinine Ratio 12.9, Glucose 101, Calcium 8.9, Total Bilirubin 0.70, Direct Bilirubin 0.11, AST 37, ALT 35, Alkaline Phosphatase 61, Total Protein 8.1, Albumin 3.9, Globulin 4.2 Radiology Impression Abdomen/Pelvis CT 01/24/23 19:40 IMPRESSION: 1. Distended small bowel, decompressed distal small bowel. Definitive lead point is not identified, however findings consistent with SBO. No free fluid free air or abscess. 2. Hiatal hernia. Distended stomach. 3. RIGHT peripelvic cyst at, 2 mm nonobstructing RIGHT ureteral stone. No evidence of obstructive uropathy. 4. Status post cholecystectomy. 5. No evidence of appendicitis. Diverticula without evidence of diverticulitis. 6. Postop changes involving lumbar spine. Electronically Signed: Drew Roberts MD at 20:36 EDT , ADDENDUM: 01/24/232043 IMPRESSION: 1. Distended small bowel, decompressed distal small bowel. Definitive lead point is not identified, however findings consistent with SBO. No free fluid free air or abscess. 2. Hiatal hernia. Distended stomach. 3. RIGHT peripelvic cyst at, 2 mm nonobstructing RIGHT ureteral stone. No evidence of obstructive uropathy. 4. Status post cholecystectomy. 5. No evidence of appendicitis. Diverticula without evidence of diverticulitis. 6. Postop changes involving lumbar spine. N.B. : The above Results were Read Back by Drew Roberts MD to Millie Ochoa MD, and understanding confirmed on 01/24/2023 20:38:00 (ET). Electronically Signed: Drew Roberts MD at 20:36 EDT , Assessment & Plan Assessment/Plan (1) Small bowel obstruction: PLAN: The patient had a CT scan was suggested small bowel obstruction due to collapsed distal small bowel although I reviewed the CT scan it appears the terminal ileum has stool in it. The colon has stool throughout. Patient does have a distended stomach and proximal small bowel with an area of non distended small bowel in the middle. Patient reports he had copious amounts of diarrhea this morning. He did not have any vomiting until he was given contrast. Patient currently has an NG tube in place and did have 500 cc of green output. He is feeling better with no abdominal pain at this time. He is still moderately distended. At this time I believe the patient may have gastroenteritis as opposed to a small bowel obstruction as I do see stool throughout the colon and in the distal small bowel. I will admit the patient for observation and continue IV fluids. I will check a KUB in the morning. NG to low intermittent suction. SCDs and BP control. Tra Desai MD Pager: [facility] [address] [place] [address], [address] [place] [phone] Office:
[2023-01-24 22:00] VITALS: BP 134/80
[2023-01-24 22:52] LABS: Bacteria 0 SEEN /hpf (None Seen); Mucous, Urine 0 SEEN /hpf (<or=2+); Red Blood Cells-Urine 0 SEEN /hpf (0-5); White Blood Cells 0 SEEN /hpf (0-5)
[2023-01-24 22:56] LABS: Color, Urine Yellow (Yellow); Glucose, Dipstick Normal (Normal); Ketone-Dipstick 15 mg/dl (Negative); Leukocyte Esterase-Dipstick Negative /ul (Negative); Nitrite-Dipstick Negative (Negative); Occult Blood-Urine Negative /ul (Negative); Protein-Dipstick 15 mg/dl (Negative); Urine Bilirubin Dipstick Negative (Negative); Urine Clarity Sl. Cloudy (Clear); Urine Urobilinogen Normal (Normal)
[2023-01-24 23:05] VITALS: BP 166/71; PULSE 95; RESP 18; TEMP 36.3; O2SAT 97
[2023-01-24 23:07] LABS: Squamous Epithelial Cells - UA 0-5 SEEN /hpf (0-5)
[2023-01-24 23:08] VITALS: BMI 30.7
[2023-01-24] MEDS: 0.9% Normal Saline 1,000 ML 100 ML IV (23:54)
[2023-01-25] VITALS (8 sets, daily range): BP systolic 114–145; BP diastolic 66–78; PULSE 80–98; RESP 16–19; TEMP 36.4–37.6; O2SAT 85–97
--- NOTE | 2023-01-25 05:35 | RAD_ITS ---
STUDY: X-RAY - ABDOMEN/PELVIS REASON FOR EXAM: Male, 87 years old. Small bowel obstruction. Follow-up. TECHNIQUE: Single AP view of the abdomen / pelvis and 3 images. COMPARISON: January 24, 2023. FINDINGS: Normal visualized lung bases. Tip of NG tube projected over the left upper quadrant of the abdomen and unchanged. Increased dilatation of small bowel with a paucity of gas distally compatible with worsening small bowel obstruction. Stable fusion of the lower lumbosacral spine and cholecystectomy clips. Contrast in bladder. RAD/Abdomen Single View (Portable) IMPRESSION: Worsening dilatation of small bowel compatible with worsening high-grade partial small bowel obstruction. Electronically Signed: Benjamín Alva, at 10:30 EDT ,
[2023-01-25 06:47] LABS: Absolute Lymphocyte Count 1.12 X10^3/uL (0.83-4.51); Absolute Neutrophil Count 3.8 X10^3/uL (2.0-7.7); Basophil# 0.02 X10^3/uL; Basophil% 0.3 % (0-1); Eosinophil# 0.01 X10^3/uL; Eosinophils% 0.2 % (0-5); Hematocrit 43.4 % (40-54); Hemoglobin 14.7 g/dL (13.0-16.5); Lymphocyte # 1.12 X10^3/ul (0.83-4.51); Lymphocyte % 17.5 % (19-41); Mean Corp Hgb Conc 33.9 g/dL (32-36); Mean Corpuscular Hgb 32.3 pg (27.0-32.0); Mean Corpuscular Volume 95.4 fL (80-94); Mean Platelet Vol. 10.9 fl (6.2-12.0); Monocyte# 1.42 X10^3/uL; Monocyte% 22.2 % (0-10); NRBC Flagged by Analyzer 0 % (0-5); Neutrophil # 3.82 X10^3/uL (2.7-7.7); Neutrophil % 59.5 % (47-70); Platelet Count 267 K/mm3 (150-450); RBC Distribution Width CV 13.8 % (11.6-14.6); RBC Distribution Width SD 48.2 fl (35.1-43.9); Red Blood Count 4.55 M/mm3 (4.6-6.2); White Blood Count 6.4 K/mm3 (4.4-11.0)
[2023-01-25] MEDS: Budesonide Respules 0.5 MG/2 ML AMPUL.NEB. INHALATION ×2 (07:16→19:05)
[2023-01-25 07:17] LABS: Anion Gap 6 (5-15); BUN 15 mg/dL (7-18); BUN/Creat Ratio 14.3 RATIO (10-20); Calcium,Total 8.1 mg/dL (8.5-10.1); Chloride 111 mmol/L (98-107); Creatinine, Serum 1.05 mg/dL (0.70-1.30); EST Glomerular Filtration Rate 71 mL/min (>60); Est Glom Filt Rate - Afr Amer 86 mL/min (>60); Estimated Creatinine Clearance 52.14 ml/min; Glucose 111 mg/dL (74-106); Phosphorus 2.7 mg/dL (2.5-4.9); Potassium 3.5 mmol/L (3.5-5.1); Sodium Level 140 mmol/L (136-145)
--- NOTE | 2023-01-25 08:07 | PN.SURG_ITS ---
Subjective Subjective Reports no abdominal pain. No nausea. He did not have any flatus. Objective Data Objective Data Vital Signs: Vital Signs Temp Pulse Resp BP Pulse Ox O2 Del Method 99.6 F H 87 18 130/69 H 96 Room Air 01/25/23 05:36 01/25/23 05:36 01/25/23 05:36 01/25/23 05:36 01/25/23 05:36 01/25/23 05:36 Oxygen Delivery Method Room Air Weight: 214 lb 11.684 oz Body Mass Index (BMI) 30.7 Intake & Output: Intake and Output for Last 24 Hours 01/23/23 01/24/23 01/25/23 23:59 23:59 23:59 Intake Total 1000 / 1000 Output Total 1000 / 1000 1150 / 1150 Balance -1000 / -1000 -150 / -150 Lab / Micro Data Result Diagrams: 01/25/23 05:45 01/25/23 05:45 Labs: Laboratory Results - last 24 hr 01/24/23 17:50: WBC 8.5, RBC 5.14, Hgb 16.3, Hct 49.4, MCV 96.1 H, MCH 31.7, MCHC 33.0, RDW Std Deviation 48.4 H, RDW Coeff of Ebonie 13.8, Plt Count 294, MPV 11.0, Immature Gran % (Auto) 0.900, Neut % (Auto) 68.6, Lymph % (Auto) 13.4 L, [place] % (Auto) 14.5 H, Eos % (Auto) 1.9, Baso % (Auto) 0.7, Absolute Neuts (auto) 5.8, Absolute Lymphs (auto) 1.14, Nucleated RBC % 0 01/24/23 17:50: Sodium 138, Potassium 3.9, Chloride 109 H, Carbon Dioxide 24.0, Anion Gap 5, BUN 15, Creatinine 1.16, Estim Creat Clear Calc 47.20, Est GFR (MDRD) Af Amer 77, Est GFR (MDRD) Non-Af 63, BUN/Creatinine Ratio 12.9, Glucose 101, Calcium 8.9, Total Bilirubin 0.70, Direct Bilirubin 0.11, AST 37, ALT 35, Alkaline Phosphatase 61, Total Protein 8.1, Albumin 3.9, Globulin 4.2 01/24/23 22:46: Urine Color Yellow, Urine Clarity Sl. Cloudy, Urine pH 5.0, Ur Specific Patterson 1.010, Urine Protein 15 H, Urine Glucose (UA) Normal, Urine Ketones 15 H, Urine Occult Blood Negative, Urine Nitrite Negative, Urine Bilirubin Negative, Urine Urobilinogen Normal, Ur Leukocyte Esterase Negative, Urine RBC 0 SEEN, Urine WBC 0 SEEN, Ur Squamous Epith Cells 0-5 SEEN, Urine Ba cteria 0 SEEN, Urine Mucus 0 SEEN 01/25/23 05:45: WBC 6.4, RBC 4.55 L, Hgb 14.7, Hct 43.4, MCV 95.4 H, MCH 32.3 H, MCHC 33.9, RDW Std Deviation 48.2 H, RDW Coeff of Ebonie 13.8, Plt Count 267, MPV 10.9, Immature Gran % (Auto) 0.300, Neut % (Auto) 59.5, Lymph % (Auto) 17.5 L, [place] % (Auto) 22.2 H, Eos % (Auto) 0.2, Baso % (Auto) 0.3, Absolute Neuts (auto) 3.8, Absolute Lymphs (auto) 1.12, Nucleated RBC % 0 01/25/23 05:45: Sodium 140, Potassium 3.5, Chloride 111 H, Carbon Dioxide 23.0, Anion Gap 6, BUN 15, Creatinine 1.05, Estim Creat Clear Calc 52.14, Est GFR (MDRD) Af Amer 86, Est GFR (MDRD) Non-Af 71, BUN/Creatinine Ratio 14.3, Glucose 111 H, Calcium 8.1 L, Phosphorus 2.7, Magnesium 2.0 Radiography Diagnostic Testing: Radiology Impression Abdomen/Pelvis CT 01/24/23 19:40 IMPRESSION: 1. Distended small bowel, decompressed distal small bowel. Definitive lead point is not identified, however findings consistent with SBO. No free fluid free air or abscess. 2. Hiatal hernia. Distended stomach. 3. RIGHT peripelvic cyst at, 2 mm nonobstructing RIGHT ureteral stone. No evidence of obstructive uropathy. 4. Status post cholecystectomy. 5. No evidence of appendicitis. Diverticula without evidence of diverticulitis. 6. Postop changes involving lumbar spine. Electronically Signed: Drew Roberts MD at 20:36 EDT , ADDENDUM: 01/24/232043 IMPRESSION: 1. Distended small bowel, decompressed distal small bowel. Definitive lead point is not identified, however findings consistent with SBO. No free fluid free air or abscess. 2. Hiatal hernia. Distended stomach. 3. RIGHT peripelvic cyst at, 2 mm nonobstructing RIGHT ureteral stone. No evidence of obstructive uropathy. 4. Status post cholecystectomy. 5. No evidence of appendicitis. Diverticula without evidence of diverticulitis. 6. Postop changes involving lumbar spine. N.B. : The above Results were Read Back by Drew Roberts MD to Millie Ochoa MD, and understanding confirmed on 01/24/2023 20:38:00 (ET). Electronically Signed: Drew Roberts MD at 20:36 EDT , KUB X-Ray 01/24/23 21:05 IMPRESSION: 1. NG tube projects within the proximal stomach. 2. Persistent findings of gas-filled distended small bowel segments consistent with SBO. Electronically Signed: Drew Roberts MD at 21:38 EDT , Physical Exam Const oriented x3 Resp normal respiratory effort Cardio regular rate and regular rhythm GI soft to palpation and non-tender Inspection: Negative for abdominal distention Assessment & Plan Assessment/Plan (1) SBO (small bowel obstruction): PLAN: Patient continues to have gastroenteritis versus small bowel obstruction. His x-ray shows dilated small bowel. He does have some gas in the colon from what I can see. His NG put a lot of dark material out so we will continue NG suction and IV fluids for the day. I will give him ice chips. Repeat KUB in the morning. Tra Desai MD Pager: [facility] [address] [place] [address], [facility] [address] [place] [address] Office:
--- NOTE | 2023-01-25 08:50 | CASEMGMT ---
Addendum entered by Trudy Steinberg 01/25/23 12:27: 6 clicks=24, no therapy ordered. Original Note: RN CM Assessment: Face to Face with pt for initial transition planning/care coordination assessment. RN CM introduced self and role at [facility], pt voices understanding and consents to assessment. Pt is A/O x4 and answers all questions appropriately at this time. Pt lying in bed in no distress with NG in. Care providers, pharmacy, and demographics verified/updated. Admitting Dx:gastroenteritis PCP: Basil Specialists: Friend, appt later this month; [facility] Preferred Pharmacy: [facility] Insurance: [employer], [employer] Prescription Benefit: yes LNOK:Jose Antonio Ott, son Living Arrangements: Pt lives alone in a two story home but only uses the main level with 3 steps to enter with a rail. Pt reports he is I in ADL's and denies concerns at home. Transportation: Pt drives self and denies concerns with transportation. DME/HHC/SNF: Pt has a w/c, shower chair, walker, cane and trf bench. Pt has had [facility] HHC in the past and has been to the Rehab Unit at [facility]. Pt states no concerns with going home at time of dc. Pt states no further concerns/needs. CM to follow.Advised pt to ask CM if any further question/concerns/needs arise, voices understanding. Pt Goal: Home Plan:Home
[2023-01-25] MEDS: 0.9% Normal Saline 1,000 ML 100 ML IV ×2 (10:34→19:53)
--- NOTE | 2023-01-25 19:15 | CPS ---
Pt doesn't take albuterol at night time or during evening hours. per pt, pt declined albuterol at this time.
[2023-01-26 02:05] VITALS: BP 134/69; PULSE 78; RESP 16; TEMP 36.9; O2SAT 95
[2023-01-26] MEDS: 0.9% Normal Saline 1,000 ML 100 ML IV (05:23)
--- NOTE | 2023-01-26 05:55 | RAD_ITS ---
STUDY: X-RAY - ABDOMEN/PELVIS REASON FOR EXAM: Male, 87 years old. Follow-up of small bowel obstruction. TECHNIQUE: Single AP view of the abdomen / pelvis on 3 images. COMPARISON: January 25, 2023. FINDINGS: Radiographic improvement with almost total resolution of small bowel dilatation with air now in the colon. Moderate amount of feces in the colon. Stable osteopenia with postfusion changes of the lower lumbosacral spine. RAD/Abdomen Single View (Portable) IMPRESSION: Substantial radiographic improvement with decrease in small bowel dilatation and air in the colon. No acute finding. Electronically Signed: Benjamín Alva, at 10:51 EDT ,
[2023-01-26 06:23] LABS: Absolute Lymphocyte Count 1.43 X10^3/uL (0.83-4.51); Absolute Neutrophil Count 2.8 X10^3/uL (2.0-7.7); Basophil# 0.03 X10^3/uL; Basophil% 0.5 % (0-1); Eosinophil# 0.11 X10^3/uL; Hematocrit 39.3 % (40-54); Hemoglobin 13.1 g/dL (13.0-16.5); Lymphocyte # 1.43 X10^3/ul (0.83-4.51); Lymphocyte % 26.2 % (19-41); Mean Corp Hgb Conc 33.3 g/dL (32-36); Mean Corpuscular Volume 96.1 fL (80-94); Mean Platelet Vol. 11.1 fl (6.2-12.0); Monocyte% 20.1 % (0-10); NRBC Flagged by Analyzer 0 % (0-5); Neutrophil # 2.75 X10^3/uL (2.7-7.7); Neutrophil % 50.5 % (47-70); Platelet Count 242 K/mm3 (150-450); RBC Distribution Width CV 13.8 % (11.6-14.6); RBC Distribution Width SD 49.1 fl (35.1-43.9); Red Blood Count 4.09 M/mm3 (4.6-6.2); White Blood Count 5.5 K/mm3 (4.4-11.0)
[2023-01-26 06:48] LABS: Anion Gap 6 (5-15); BUN 21 mg/dL (7-18); BUN/Creat Ratio 20.6 RATIO (10-20); Calcium,Total 7.7 mg/dL (8.5-10.1); Chloride 113 mmol/L (98-107); Creatinine, Serum 1.02 mg/dL (0.70-1.30); EST Glomerular Filtration Rate 74 mL/min (>60); Est Glom Filt Rate - Afr Amer 89 mL/min (>60); Estimated Creatinine Clearance 53.68 ml/min; Glucose 83 mg/dL (74-106); Potassium 3.3 mmol/L (3.5-5.1); Sodium Level 142 mmol/L (136-145)
[2023-01-26 07:19] VITALS: PULSE 72; RESP 16; O2SAT 94
[2023-01-26] MEDS: Budesonide Respules 0.5 MG/2 ML AMPUL.NEB. INHALATION (07:19)
[2023-01-26] MEDS: Albuterol 2.5 MG/3 ML VIAL.NEB. INHALATION (07:19)
--- NOTE | 2023-01-26 07:25 | CPS ---
Pt takes Advair Qam only. He does not want any more aerosols except am aerosol.
[2023-01-26 07:46] VITALS: BP 137/63; PULSE 82; RESP 20; TEMP 36.6; O2SAT 94
--- NOTE | 2023-01-26 09:13 | PCM.PN.SRG ---
Subjective Subjective Patient had 2 bowel movements. He is not having any abdominal pain. Objective Data Objective Data Vital Signs: Vital Signs Temp Pulse Resp BP Pulse Ox O2 Del Method 97.8 F 82 20 H 137/63 H 94 Room Air 01/26/23 07:46 01/26/23 07:46 01/26/23 07:46 01/26/23 07:46 01/26/23 07:46 01/26/23 07:50 Oxygen Delivery Method Room Air Weight: 214 lb 11.684 oz Body Mass Index (BMI) 30.7 Intake & Output: Intake and Output for Last 24 Hours 01/24/23 01/25/23 01/26/23 23:59 23:59 23:59 Intake Total 3041.66 / 3041.66 1580 / 1580 Output Total 1000 / 1000 1750 / 1750 1175 / 1175 Balance -1000 / -1000 1291.66 / 1291.66 405 / 405 Lab / Micro Data Result Diagrams: 01/26/23 05:20 01/26/23 05:20 Labs: Laboratory Results - last 24 hr 01/26/23 05:20: WBC 5.5, RBC 4.09 L, Hgb 13.1, Hct 39.3 L, MCV 96.1 H, MCH 32.0, MCHC 33.3, RDW Std Deviation 49.1 H, RDW Coeff of Ebonie 13.8, Plt Count 242, MPV 11.1, Immature Gran % (Auto) 0.700, Neut % (Auto) 50.5, Lymph % (Auto) 26.2, Stewart % (Auto) 20.1 H, Eos % (Auto) 2.0, Baso % (Auto) 0.5, Absolute Neuts (auto) 2.8, Absolute Lymphs (auto) 1.43, Nucleated RBC % 0 01/26/23 05:20: Sodium 142, Potassium 3.3 L, Chloride 113 H, Carbon Dioxide 23.0, Anion Gap 6, BUN 21 H, Creatinine 1.02, Estim Creat Clear Calc 53.68, Est GFR (MDRD) Af Amer 89, Est GFR (MDRD) Non-Af 74, BUN/Creatinine Ratio 20.6 H, Glucose 83, Calcium 7.7 L Physical Exam Const oriented x3 and no apparent distress Resp normal respiratory effort GI soft to palpation and non-tender Inspection: Negative for abdominal distention Assessment & Plan Assessment/Plan (1) SBO (small bowel obstruction): PLAN: Patient is having bowel function and his bowel sounds are normal active. Patient NG output turned to bilious green. He is not having any abdominal pain. X-ray this morning looks much improved with gas in the colon and no small bowel distention. I will remove his NG and start a clear liquid diet and advance as tolerated. Once he is tolerating regular diet we will discharge him home. Tra Desai MD Pager: [facility] [address] [place] [address], [address] [place] [address] Office:
--- NOTE | 2023-01-26 09:14 | DS.PCM_ITS ---
Providers Date of Admission: 01/24/23 Primary Care Physician: Dr. Simona Gracia MD Reason For Visit: GASTROENTERITIS Diagnosis Discharge Diagnosis (1) SBO (small bowel obstruction): Status: Acute Code(s): K56.609 - Unspecified intestinal obstruction, unspecified as to partial versus complete obstruction Plan: Patient is having bowel function and his bowel sounds are normal active. Patient NG output turned to bilious green. He is not having any abdominal pain. X-ray this morning looks much improved with gas in the colon and no small bowel distention. I will remove his NG and start a clear liquid diet and advance as tolerated. Once he is tolerating regular diet we will discharge him home. Tra Desai MD Pager: [facility] [address] [place] [address], [address] [place] [phone] Office: Medications at Discharge Home Medications albuterol sulfate 90 mcg/actuation aerosol inhaler 1 - 2 puff inhalation Q4H PRN PRN Asthma 11/18/13 fluticasone 250 mcg-salmeterol 50 mcg/dose blistr powdr for inhalation 1 puff inhalation DAILY breathing 11/18/13 levothyroxine 25 mcg tablet 25 mcg PO DAILY thyroid #90 tabs 06/25/19 melatonin 3 mg tablet 6 mg PO QHS sleep 09/08/20 flunisolide 25 mcg (0.025 %) nasal spray 1 - 2 spray NASAL Q6H PRN PRN Allergies #1 BOTTLE 09/20/20 loperamide 2 mg capsule 2 mg PO Q4H PRN PRN LOOSE STOOLS 09/20/20 loratadine 10 mg tablet 10 mg PO DAILY PRN ALLERGIES #30 tabs 09/20/20 amlodipine 2.5 mg tablet 2.5 mg PO DAILY blood pressure 09/05/21 acetaminophen 325 mg PO/SL PRN PRN Pain 01/24/23 Hospital Course Operations None Procedures None Summary of Care Provided Hospital Course: Patient was admitted with possible gastroenteritis versus possible small bowel obstruction. After day of NG decompression the patient started having bowel function. The second day of hospitalization his NG was removed and he was started on a diet. Once tolerating diet he will be discharged home. Weight / BMI Weight Weight: 214 lb 11.684 oz Body Mass Index (BMI) 30.7 ABG / Lab / Microbiology Data Result Diagrams: 01/26/23 05:20 01/26/23 05:20 Laboratory: Laboratory Results - last 24 hr 01/26/23 05:20: WBC 5.5, RBC 4.09 L, Hgb 13.1, Hct 39.3 L, MCV 96.1 H, MCH 32.0, MCHC 33.3, RDW Std Deviation 49.1 H, RDW Coeff of Ebonie 13.8, Plt Count 242, MPV 11.1, Immature Gran % (Auto) 0.700, Neut % (Auto) 50.5, Lymph % (Auto) 26.2, [place] % (Auto) 20.1 H, Eos % (Auto) 2.0, Baso % (Auto) 0.5, Absolute Neuts (auto) 2.8, Absolute Lymphs (auto) 1.43, Nucleated RBC % 0 01/26/23 05:20: Sodium 142, Potassium 3.3 L, Chloride 113 H, Carbon Dioxide 23.0, Anion Gap 6, BUN 21 H, Creatinine 1.02, Estim Creat Clear Calc 53.68, Est GFR (MDRD) Af Amer 89, Est GFR (MDRD) Non-Af 74, BUN/Creatinine Ratio 20.6 H, Glucose 83, Calcium 7.7 L D/C Instructions Discharge Diet: Light diet - advance as tolerated Discharge Activity: Return to Normal Activity Lifting Restrictions: none Call your doctor if your incision/area has: Increased Pain/ Swelling Call your doctor if you observe: Fever of 101 or Higher, Inability to urinate and Inability to have a bowel movement When: Follow-up with PCP as needed Meaningful Use Info Meaningful Use Diagnoses (Choose all that apply): None applicable Discharge Plan Admission Admit Date/Time: 01/24/23 22:19 Attending Provider: Tra Desai Primary Care Provider: Simona Gracia Discharge Orders/Prescriptions Prescriptions: Continued levothyroxine 25 mcg tablet 25 mcg PO DAILY Qty: 90 amlodipine 2.5 mg tablet 2.5 mg PO DAILY fluticasone propion-salmeterol 1 PUFF inhaler 1 puff inhalation DAILY albuterol sulfate 1 PUFF inhaler 1 - 2 puff inhalation Q4H PRN PRN (Reason: Asthma) melatonin 3 MG tablet 6 mg PO QHS loperamide 2 MG capsule 2 mg PO Q4H PRN PRN (Reason: LOOSE STOOLS) 0RF loratadine 10 MG tablet 10 mg PO DAILY PRN (Reason: ALLERGIES) Qty: 30 0RF flunisolide 1 SPRAY spray,non-aerosol 1 - 2 spray NASAL Q6H PRN PRN (Reason: Allergies) Qty: 1 0RF acetaminophen 325 mg PO/SL PRN PRN (Reason: Pain) Referrals / Follow Up: Simona Gracia MD [Primary Care Provider] - Disposition Disposition (needs filled in before D/C Order can be placed): Home, Self Care
[2023-01-26] MEDS: Potassium Chloride Oral Tablet 20 MEQ 40 MEQ PO (10:36)
[2023-01-26 13:57] VITALS: BP 130/66; PULSE 67; RESP 17; TEMP 36.8; O2SAT 97
== END 2023-01-26 15:19 | disposition home or self-care (01) | DRG 390 ==
LOC: ED 22:15 → MS3 22:29
PROVIDERS: Admitting Provider Surgery; Emergency Provider Emergency Medicine; PCP Family Medicine; Visit Provider Surgery
DX: K56.609 Unspecified intestinal obstruction, unspecified as to partial versus complete obstruction (principal); I10 Essential (primary) hypertension; K52.9 Noninfective gastroenteritis and colitis, unspecified; Z79.82 Long term (current) use of aspirin; Z90.49 Acquired absence of other specified parts of digestive tract; Z79.899 Other long term (current) drug therapy
CPT/HCPCS: 36415; 74018; 74177; 80048; 80076; 81001; 83735; 84100; 85025; 94640; 99285; J7030; Q9967; A4216; J2405

== ENCOUNTER 2023-04-24 07:13 | Day surgery (SDC) | payer MEDICARE, OTHER, SELFPAY ==
[2023-04-24] VITALS (7 sets, daily range): BP systolic 125–141; BP diastolic 57–72; PULSE 68–86; RESP 16; TEMP 36.5–36.9; O2SAT 93–98; BMI 30.9
[2023-04-24] MEDS: Lactated Ringers 1,000 ML 15 ML IV (07:55)
--- NOTE | 2023-04-24 08:07 | PCM.HP.BLA ---
History and Physical Date of Admission: 04/24/23 87 M who presents to the office today to establish with a new GI practice for difficulty swallowing which started years ago. Long hx of GERD. He saw another [facility] locally a few yrs ago. Prior to that he was followed at [facility]. He will have difficulty swallowing 99.9% of the time with roast beef, chicken or eating too fast. Feels like food sticks in mid esophagus then, it passes when he stops eating and remains calm. No ED visits for food stuck in esophagus. He has required esophageal dilation before. Occas gets a pain in that area of the esophagus, rates it 3/10, takes TUMS but not sure that helps, but pain does resolve after that. He denies heartburn or acid reflux on once daily rabeprazole, has had HOB elevated for decades. No nausea, vomiting, abdominal pain, diarrhea, constipation, melena, hematochezia. Sounds like he had esophageal manometry done a few yrs ago at [facility], he doesn't know the results. 05/2020 Esophagram: tertiary contractions in mid and distal esophagus He was admitted to [facility] 01/24/23-01/26/23 for possible gastroenteritis vs small bowel obstruction, treated with NG tube. ROS Const Constitutional: No fatigue ENT ENT: Positive for difficulty swallowing Gastro GI: Positive for diarrhea, heartburn and difficulty swallowing; No abdominal pain, belching, bloating, change in bowel habits, change in stool character, coffee ground emesis, constipation, cramping, feeling full early, excessive flatus, incontinent of stools, Vomiting blood/hematemesis, Blood in stool, loose stools, Black,tarry stools, nausea/dyspepsia, pain with swallowing, vomiting or other Musc Musculoskeletal: Positive for joint pain and joint swelling Skin Skin: Positive for itchy eyes and rash; No yellowing of the eye Psych Psychiatric: No anxiety and No depression Endo Endocrine: No fatigue Aller/Imm Allergy/Immunologic: Positive for itchy eyes Nabor/Lymp Hematologic/Lymphatic: No easy bleeding or easy bruising Exam Const General: cooperative, healthy appearing and comfortable Orientation: alert, awake and oriented x3 HENMT Head: normal to inspection Neck Neck: normal visual inspection Resp Effort & Inspection: normal respiratory effort GI Inspection: normal to inspection Neuro Speech: speech normal Gait: normal gait Quality Reporting Tobacco Screening ([facility] 138) Smoking Status: Never smoker Assessment and Plan Assessment and Plan (1) Dysphagia: Status: Chronic Plan: 87 yo male with long hx of GERD, dysphagia. Continue rabeprazole. We'll try to track down esophageal manometry resport. Will schedule EGD, with office visit 2 wks later. (2) GERD (gastroesophageal reflux disease): Status: Chronic Plan: as above I have examined the patient and the H&P has been reviewed. There are no clinical changes since date of exam.
--- NOTE | 2023-04-24 08:15 | EGD_PTH ---
PATIENT: SHMUEL DIAS LOC: EN U#:[id number] AGE/SX: 87/M ROOM: RE04/24/[address]: Dr. Joe Kumar DO : 1935 BED: DIS: 04/24/2023 SPEC #: [id number] RECD: 04/24/23 12:09 STATUS: SALVATORE LIANE #: [id number] NASIM: 04/24/23 08:[address]: Joe Kumar DEPT: SURGICAL PATHOLOGY RECD BY: Koki Lee ENTERED: 04/24/23 12:38 SP TYPE: EGD BIOPSY CESAR DR: Dr. Simona Gracia MD Tissues: Esophagus, NOS Procedures: Special Stain Group II Surgery Specimen Level IV Alcian Blue/PAS (control) HEADER OPERATION: EGD ([facility]), biopsy, dilatation PRE-OP DIAGNOSIS: Dysphagia, GERD TISSUE SUBMITTED: Random esophageal biopsy MICROSCOPIC DIAGNOSIS Esophagus, random biopsy: Gastroesophageal junctional mucosa with mild chronic inflammation. Focal changes of reflux. No evidence of goblet cell metaplasia. See comment. AM:marquita 04/25/2023 COMMENT Alcian blue/PAS stain with matched control supports the above diagnosis. MICROSCOPIC DESCRIPTION Slides are reviewed. GROSS DESCRIPTION Received in fixative is one container labeled with the patient's name and designated random esophagus biopsy. The specimen consists of multiple irregular fragments of light garcia soft tissue that in aggregate measure 1.5 x 0.6 x 0.1 cm. The specimen is totally submitted in one cassette. / SJ:marquita 04/24/2023 TC:3 CPT: 49369, 54225
--- NOTE | 2023-04-24 08:29 | OP.CCLET_ITS ---
04/24/2023 Simona Gracia [address] [place] [address] Re : Upper GI endoscopy procedure for Asad Ott Dear Dr. Gracia This procedure was performed on March. My impressions and recommendations are as follows: Impressions : - Esophageal mucosal changes consistent with eosinophilic esophagitis. Biopsied. - Moderate Schatzki ring. Dilated. - Multiple gastric polyps. - Portal hypertensive gastropathy. - No gross lesions in the second portion of the duodenum. Recommendations : - Discharge patient to home. - Resume previous diet. - Continue present medications. - Await pathology results. My findings are described in the full procedure note, which is enclosed. If I can be of further assistance, please feel free to contact me at . Sincerely, Joe Kumar, 04/24/2023 8:29:02 AM This report has been signed electronically.
--- NOTE | 2023-04-24 08:29 | OP.EGD_ITS ---
Patient Name: Asad Ott Procedure Date: 04/24/2023 8:04 AM Date of : 1935 Age: 87 Procedure: Upper GI endoscopy Indications: Dysphagia Providers: Joe Kumar DO Medicines: Monitored Anesthesia Care Patient Profile: This is an 87 year old male. Refer to note in patient chart for documentation of history and physical. Patient has symptoms of chronic dysphagia and dysphagia with solids. Complications: No immediate complications. Procedure: Pre-Anesthesia Assessment: - Prior to the procedure, a History and Physical was performed, and patient medications and allergies were reviewed. The patient is competent. The risks and benefits of the procedure and the sedation options and risks were discussed with the patient. All questions were answered and informed consent was obtained. Patient identification and proposed procedure were verified by the physician in the pre-procedure area. Mental Status Examination: alert and oriented. Airway Examination: normal oropharyngeal airway and neck mobility. Respiratory Examination: clear to auscultation. CV Examination: normal. Prophylactic Antibiotics: The patient does not require prophylactic antibiotics. Prior Anticoagulants: The patient has taken no previous anticoagulant or antiplatelet agents. ASA Grade Assessment: II - A patient with mild systemic disease. After reviewing the risks and benefits, the patient was deemed in satisfactory condition to undergo the procedure. The anesthesia plan was to use monitored anesthesia care (MAC). Immediately prior to administration of medications, the patient was re-assessed for adequacy to receive sedatives. The heart rate, respiratory rate, oxygen saturations, blood pressure, adequacy of pulmonary ventilation, and response to care were monitored throughout the procedure. The physical status of the patient was re-assessed after the procedure. After obtaining informed consent, the endoscope was passed under direct vision. Throughout the procedure, the patient's blood pressure, pulse, and oxygen saturations were monitored continuously. The gastroscope was introduced through the mouth, and advanced to the second part of duodenum. The upper GI endoscopy was accomplished without difficulty. The patient tolerated the procedure well. Scope In: 8:15:36 AM Scope Out: 8:21:43 AM Total Procedure Duration Time 0 hours 6 minutes 7 seconds Findings: Mucosal changes including ringed esophagus and small-caliber esophagus were found in the lower third of the esophagus. Biopsies were obtained from the proximal and distal esophagus with cold forceps for histology of suspected eosinophilic esophagitis. Verification of patient identification for the specimen was done. Estimated blood loss was minimal. A moderate Schatzki ring was found in the middle third of the esophagus. A guidewire was placed and the scope was withdrawn. Dilation was performed with a Savary dilator with no resistance at 60 Fr. The dilation site was examined and showed complete resolution of luminal narrowing. Estimated blood loss was minimal. Multiple 5 mm pedunculated and sessile polyps with no stigmata of recent bleeding were found in the entire examined stomach. Mild portal hypertensive gastropathy was found in the cardia. No gross lesions were noted in the second portion of the duodenum. Impression: - Esophageal mucosal changes consistent with eosinophilic esophagitis. Biopsied. - Moderate Schatzki ring. Dilated. - Multiple gastric polyps. - Portal hypertensive gastropathy. - No gross lesions in the second portion of the duodenum. Recommendation: - Discharge patient to home. - Resume previous diet. - Continue present medications. - Await pathology results. Procedure Code(s): --- Professional --- 05295, Esophagogastroduodenoscopy, flexible, transoral; with insertion of guide wire followed by passage of dilator(s) through esophagus over guide wire 70130, 59, Esophagogastroduodenoscopy, flexible, transoral; with biopsy, single or multiple CPT copyright 2017 [employer]. All rights reserved. The codes documented in this report are preliminary and upon coremaking machine setter review may be revised to meet current compliance requirements. Joe Kumar DO 04/24/2023 8:29:02 AM This report has been signed electronically. Number of Addenda: 0 Note Initiated On: 04/24/2023 8:04 AM
== END 2023-04-24 09:06 | disposition home or self-care (01) ==
LOC: EN 07:14 → AC 07:15
PROVIDERS: PCP Family Medicine; Referring Provider Family Medicine; Visit Provider Internal Medicine Gastroenterology
PROC: 0DJ08ZZ Inspection of Upper Intestinal Tract, Via Natural or Artificial Opening Endoscopic (ICD-10-PCS; CPT 43235; principal; 2023-04-24 08:10)
DX: K22.2 Esophageal obstruction (principal); K76.6 Portal hypertension; I27.20 Pulmonary hypertension, unspecified; K31.89 Other diseases of stomach and duodenum; K31.7 Polyp of stomach and duodenum; K21.9 Gastro-esophageal reflux disease without esophagitis; I10 Essential (primary) hypertension; E06.9 Thyroiditis, unspecified; Z79.899 Other long term (current) drug therapy
CPT/HCPCS: 43239; 43248; 88305; 88313; J7120; J2405

== ENCOUNTER 2024-03-05 10:55 | Emergency (ER) | payer MEDICARE, OTHER, SELFPAY ==
[2024-03-05 10:56] VITALS: BP 170/81; PULSE 79; RESP 18; TEMP 36.2; O2SAT 98; BMI 30.2
--- NOTE | 2024-03-05 11:11 | US_ITS ---
STUDY: ABDOMINAL ULTRASOUND - RIGHT UPPER QUADRANT REASON FOR VISIT: Male, 88 years old RUQ pain/tend TECHNIQUE: Ultrasound evaluation of the right upper quadrant was performed with real-time and static martin-scale imaging. TECHNICAL QUALITY: Limited. Examination limited by bowel gas. COMPARISON: None. FINDINGS: Liver: The liver measures 19.6 cm. There is increased echogenicity consistent with fatty infiltration. The bile ducts are within normal limits. There is hepatic color flow. The direction of portal flow is hepatopetal. There is no demonstrated mass lesion. Gallbladder: The patient is status post cholecystectomy. Common Bile Duct (C.B.D.): The common bile duct measures 4 mm. Pancreas: There is nonvisualization of the pancreas. There is no demonstrated pancreatic mass or cyst. Right Kidney: Normal size of the right kidney. The right kidney measures 11.6 cm. Normal renal cortex. The right cortex measures 1.0 cm. There is 6.5 cm cyst. There is no right hydronephrosis. US/Abdomen Limited IMPRESSION: Liver is enlarged with fatty infiltration. Prior cholecystectomy. No biliary dilatation. Right renal cyst. Electronically Signed: Lazaro Perez MD at 12:34 EDT ,
--- NOTE | 2024-03-05 11:13 | EDS_ITS ---
HPI History of Present Illness Chief Complaint: Chest Pain Informant: patient Narrative Narrative: Patient presents with 3 days of pain in either his lower mid chest or upper mid epigastric area that has been off and on. Does not seem to be associated with meals but he states he has been belching a lot and when he takes Tums it transiently improved for only 10 or 15 minutes. Activities do not seem to make anything worse. He states he has been belching a lot for a while after meals especially, and that has been going on for a while but the pain is new in the last 3 days. No dyspnea, palpitations, near-syncope or syncope. No melena or bright red blood per rectum, no nausea or vomiting. [facility] Medical History Asthma Cancer GERD (gastroesophageal reflux disease) Grade I diastolic dysfunction Hiatal hernia History of nephrolithiasis History of prostate cancer History of spinal stenosis History of steroid therapy Hypertension Hypothyroidism Injury of head and neck Kidney stones Left bundle branch block Loss of hearing Mild pulmonary hypertension Neuropathy Non-smoker Seasonal allergies Sleep apnea Subdural hematoma Thyroiditis Tricuspid regurgitation Wears glasses Home Medications albuterol sulfate 90 mcg/actuation aerosol inhaler 1 - 2 puff inhalation Q4H PRN PRN Asthma 11/18/13 [History Last Taken 01/24/23 06:00] fluticasone 250 mcg-salmeterol 50 mcg/dose blistr powdr for inhalation (Wixela Inhub) 1 puff inhalation DAILY breathing 11/18/13 [History Last Taken 04/12/15 05:00] levothyroxine 25 mcg tablet 25 mcg PO DAILY thyroid #90 tabs 06/25/19 [History Last Taken 04/24/23 05:30] flunisolide 25 mcg (0.025 %) nasal spray 1 - 2 spray NASAL Q6H PRN PRN Allergies #1 BOTTLE 09/20/20 [Rx Last Taken 04/24/23 05:30] loratadine 10 mg tablet 10 mg PO DAILY PRN ALLERGIES #30 tabs 09/20/20 [Rx Last Taken Unknown] amlodipine 2.5 mg tablet 2.5 mg PO QHS blood pressure 09/05/21 [History Last Taken 01/23/23 22:00] acetaminophen 325 mg PO/SL PRN PRN Pain 01/24/23 [History Last Taken Unknown] melatonin 3 mg tablet 6 mg PO QHS PRN sleep 03/12/23 [History Last Taken Unknown] desloratadine 5 mg tablet 5 mg PO DAILY PRN PRN ALLERGIES 04/21/23 [History Last Taken Unknown] dexlansoprazole 60 mg capsule,biphase delayed release (Dexilant) 60 mg PO DAILY #90 caps 07/16/23 [Rx Last Taken Unknown] rabeprazole 20 mg tablet,delayed release 20 mg PO DAILY 03/05/24 [History Last Taken Unknown] sucralfate 1 gram tablet (Carafate) 1 g PO TID #21 tabs 03/05/24 [Rx Last Taken Unknown] Allergy/AdvReac Type Severity Reaction Status Date / Time grass pollen-perennial rye, Allergy Shortness Verified 04/21/23 16:56 standar of breath levofloxacin [From Levaquin] Allergy Other Verified 04/21/23 16:56 aspirin AdvReac Other Verified 04/21/23 16:56 Family History (Reviewed 03/12/23 @ 09:43 by Urszula Pond ELECTRICAL MAINTENANCE MAN, ELECTRICAL MAINTENANCE MAN-C) Brother Multiple sclerosis Sister Lung disease Mother CAD (coronary artery disease) Surgical History h/o lumbar surgery History of colonoscopy History of esophagogastroduodenoscopy (EGD) Hx laparoscopic cholecystectomy Hx of craniotomy Status post right partial knee replacement Social History Smoking Status: Never smoker alcohol intake: never ROS ROS ED Constitutional Constitutional ED: Denies chills or fever(s) Eyes Eyes: Denies change in vision or diplopia ENT ENT ED: Denies rhinorrhea or sore throat Cardiovascular Cardiovascular: Reports chest pain; Denies palpitations Respiratory/Chest Respiratory/Chest: Reports dyspnea on exertion; Denies cough or dyspnea Gastrointestinal Gastrointestinal: Reports abdominal pain; Denies diarrhea, melena, nausea or vomiting Genitourinary Genitourinary ED: Denies dysuria or hematuria Musculoskeletal Musculoskeletal: Denies back pain or neck pain Integumentary Denies abscess or rash Neurologic Neurologic: Denies headache(s), paresthesias or weakness Psychiatric Psychiatric: Denies suicidal ideation or suicidal thoughts EXAM Physical Exam Const Vital Signs: 03/05/24 10:56 03/05/24 11:03 03/05/24 11:21 Temperature 97.2 F L Temperature Source Temporal Pulse Rate 79 Respiratory Rate 18 Respiratory Effort Normal Non-Labored Blood Pressure 170/81 H Blood Pressure Mean 110 Pulse Ox 98 Oxygen Delivery Method Room Air Room Air 03/05/24 11:56 03/05/24 12:00 03/05/24 13:00 Temperature Temperature Source Pulse Rate 63 61 Respiratory Rate 16 13 Respiratory Effort Blood Pressure 152/91 H 95/81 H 177/73 H Blood Pressure Mean 111 88 98 Pulse Ox 96 99 Oxygen Delivery Method Room Air 03/05/24 13:59 Temperature Temperature Source Pulse Rate 61 Respiratory Rate 11 L Respiratory Effort Blood Pressure 175/83 H Blood Pressure Mean 113 Pulse Ox 99 Oxygen Delivery Method Positive well nourished and well developed General Appearance ED: well developed and NAD HEENT Reports moist mucous membranes normocephalic and atraumatic Eyes PERRL and EOMs intact bilaterally Neck full ROM and supple Resp normal respiratory effort and clear to auscultation bilaterally Cardio regular rate, regular rhythm and no murmurs Rate: Negative for tachycardic GI non-distended GI Narrative: RUQ tenderness, otherwise NT. neg Wilhelm. Auscultation: normoactive bowel sounds Palpation: soft Back/Spine no CVA tenderness General Back: other FROM Extremity normal to inspection General Extremety ED: Negative for edema, pulses abnormal or tenderness General Extremity: Negative for edema or pulses abnormal Neuro oriented x3, CN's II-XII intact bilaterally and no sensory deficits noted Sensorium / Orientation: awake and alert Motor Exam: strength 5/5 throughout Skin no rashes or lesions noted and no wounds MDM MDM MDM Narrative Medical decision making narrative: Differential includes acute coronary syndrome/unstable angina, in addition to GI etiologies, myocarditis, less likely to be pneumonia or an aortic acute issue. His EKG unremarkable for acute injury, he does have a right bundle this is new compared with old EKG but his old EKG was 6 years ago, of undetermined significance. 2 sequential troponin measurements both in the single digits, the second 1 lower than the first, ruling out acute coronary syndrome at this time. Furthermore while we were working him up to give him a GI cocktail, and that really helped his discomfort which is now gone. In addition I also considered biliary causes in addition to upper GI causes, obtained an ultrasound of his gallbladder fossa, he had a cholecystectomy 8 years ago and the ultrasound is otherwise unremarkable. I reviewed the images and the report which I agree with. In addition to this I did a 2 view chest x-ray which shows some chronic abnormalities but nothing acute and a narrow mediastinum on my interpretation. Radiology in agreement I read his interpretation as well. Reviewed the patient's medication list. He is on 2 different PPI medications. In discussing more with him, he has had several esophageal dilatation EGDs for dysphagia, and he states he was put on Carafate at 1 point remotely after an EGD but he does not know what was found in the stomach. He states this was done at another hospital/endoscopy unit. Therefore I do not have access to the records, but I think putting him on Carafate in addition to what he is on right now, and have him take simethicone as needed until he can follow-up is reasonable. Will put him on 1 week of Carafate. Although I considered, I do not think he needs advanced CT imaging of his abdomen/pelvis right now, he has a very benign abdomen on exam. Lab Data Attestation: I reviewed the patient's lab results. Labs: Laboratory Results - last 24 hr 03/05/24 03/05/24 11:10 13:30 WBC 5.9 RBC 4.37 L Hgb 14.2 Hct 42.2 MCV 96.6 H MCH 32.5 H MCHC 33.6 RDW Std Deviation 50.3 H RDW Coeff of Ebonie 14.2 Plt Count MPV 11.1 Immature Gran % (Auto) 0.500 Neut % (Auto) 52.4 Lymph % (Auto) 25.9 [place] % (Auto) 15.9 H Eos % (Auto) 4.6 Baso % (Auto) 0.7 Absolute Neuts (auto) 3.1 Absolute Lymphs (auto) 1.53 Nucleated RBC % 0 Platelet Estimate ADEQUATE Sodium 140 Potassium 4.4 Chloride 110 H Carbon Dioxide 27.0 Anion Gap 3 L BUN 17 Creatinine 1.04 Estim Creat Clear Calc 56.35 Est GFR (MDRD) Af Amer 87 Est GFR (MDRD) Non-Af 72 BUN/Creatinine Ratio 16.3 Glucose 84 Calcium 9.5 Total Bilirubin 0.50 AST 18 ALT 16 Alkaline Phosphatase 53 Troponin I High Sens 7 6 Total Protein 7.5 Albumin 3.7 Globulin 3.8 Albumin/Globulin Ratio 1.0 Lipase 48 Radiography Diagnostic Testing: Clinical Impression(s) from Imaging Studies Abdomen Ultrasound 03/05/24 11:11 IMPRESSION: Liver is enlarged with fatty infiltration. Prior cholecystectomy. No biliary dilatation. Right renal cyst. Electronically Signed: Lazaro Perez MD at 12:34 EDT Reading Location ID and State: [address] [place] [address] , Service support , Chest X-Ray 03/05/24 11:55 IMPRESSION: Lower lung interstitial fibrosis or edema. Electronically Signed: Lazaro Perez MD at 12:21 EDT Reading Location ID and State: [facility] / [place] , Service support , Rhythm Strip Rhythm Strip: Sinus Rhythm Rate: 75 Ectopy: None EKG Initial EKG: Attestation: I personally reviewed and interpreted this EKG as follows: Interpretation: Sinus Rhythm, No Acute Injury Pattern and RBBB Prior EKG tracings: available for review Prior: Changed (RBBB is new, but last EKG from 2018 (6 yrs ago)) Discharge Plan Triage Chief Complaint: Chest Pain ED Provider: Lazaro Candelaria Dx/Rx/DC Orders Clinical Impression: Dyspepsia, Chest pain, Acute epigastric pain Instructions: ED Chest Pain, Noncardiac Prescriptions: New sucralfate [Carafate] 1 gram tablet 1 g PO TID Qty: 21 0RF Continued levothyroxine 25 mcg tablet 25 mcg PO DAILY Qty: 90 amlodipine 2.5 mg tablet 2.5 mg PO QHS dexlansoprazole [Dexilant] 60 mg capsule,biphase delayed releas 60 mg PO DAILY Qty: 90 3RF fluticasone propion-salmeterol [Wixela Inhub] 1 PUFF inhaler 1 puff inhalation DAILY albuterol sulfate 1 PUFF inhaler 1 - 2 puff inhalation Q4H PRN PRN (Reason: Asthma) loratadine 10 MG tablet 10 mg PO DAILY PRN (Reason: ALLERGIES) Qty: 30 0RF flunisolide 1 SPRAY spray,non-aerosol 1 - 2 spray NASAL Q6H PRN PRN (Reason: Allergies) Qty: 1 0RF melatonin 3 mg tablet 6 mg PO QHS PRN (Reason: sleep) acetaminophen 325 mg PO/SL PRN PRN (Reason: Pain) desloratadine 5 mg tablet 5 mg PO DAILY PRN PRN (Reason: ALLERGIES) rabeprazole 20 mg tablet,delayed release (DR/EC) 20 mg PO DAILY Primary Care Provider: Simona Gracia Referrals: Simona Gracia MD [Primary Care Provider] - 5-7 Days Disposition Disposition: Home, Self Care
[2024-03-05] MEDS: Mag Hydrox/Al Hydrox/Simeth 30 ML UDC PO (11:19)
[2024-03-05 11:28] LABS: Absolute Lymphocyte Count 1.53 X10^3/uL (0.83-4.51); Absolute Neutrophil Count 3.1 X10^3/uL (2.0-7.7); Basophil# 0.04 X10^3/uL; Basophil% 0.7 % (0-1); Eosinophil# 0.27 X10^3/uL; Eosinophils% 4.6 % (0-5); Hematocrit 42.2 % (40-54); Hemoglobin 14.2 g/dL (13.0-16.5); Lymphocyte # 1.53 X10^3/ul (0.83-4.51); Lymphocyte % 25.9 % (19-41); Mean Corp Hgb Conc 33.6 g/dL (32-36); Mean Corpuscular Hgb 32.5 pg (27.0-32.0); Mean Corpuscular Volume 96.6 fL (80-94); Mean Platelet Vol. 11.1 fl (6.2-12.0); Monocyte# 0.94 X10^3/uL; Monocyte% 15.9 % (0-10); NRBC Flagged by Analyzer 0 % (0-5); Neutrophil % 52.4 % (47-70); POSITIVE COUNT YES; RBC Distribution Width CV 14.2 % (11.6-14.6); RBC Distribution Width SD 50.3 fl (35.1-43.9); Red Blood Count 4.37 M/mm3 (4.6-6.2); White Blood Count 5.9 K/mm3 (4.4-11.0)
[2024-03-05 11:46] LABS: AST(SGOT) 18 U/L (15-37); Alanine Aminotransfer ALT/SGPT 16 U/L (16-61); Albumin, Serum 3.7 g/dL (3.2-5.0); Alkaline Phosphatase 53 U/L (45-117); Anion Gap 3 (5-15); BUN 17 mg/dL (7-18); BUN/Creat Ratio 16.3 RATIO (10-20); Calcium,Total 9.5 mg/dL (8.5-10.1); Chloride 110 mmol/L (98-107); Creatinine, Serum 1.04 mg/dL (0.70-1.30); EST Glomerular Filtration Rate 72 mL/min (>60); Est Glom Filt Rate - Afr Amer 87 mL/min (>60); Estimated Creatinine Clearance 56.35 ml/min; Globulin 3.8 g/dL (2.2-4.2); Glucose 84 mg/dL (74-106); Lipase 48 U/L (13-75); Potassium 4.4 mmol/L (3.5-5.1); Protein, Total 7.5 g/dL (6.4-8.2); Sodium Level 140 mmol/L (136-145); Troponin-I HS (w/2H Reflex) 7 pg/mL (3.0-78.0)
--- NOTE | 2024-03-05 11:55 | RAD_ITS ---
STUDY: X-RAY CHEST REASON FOR EXAM: Male, 88 years old. Chest pain TECHNIQUE: PA and lateral views of the chest. COMPARISON: None. FINDINGS: There are monitoring devices. There are mild lower lung interstitial increased opacities. There is no demonstrated pleural abnormality. Normal size heart. Normal mediastinum and laya. Normal visualized pulmonary arteries. There is atherosclerotic calcification of the aortic arch with tortuosity. There are diffuse degenerative changes of the visualized thoracic spine. Normal visualized ribs, clavicles, and shoulders. There is no demonstrated abnormality of the visualized soft tissue structures of the upper abdomen. RAD/Chest PA and Lateral IMPRESSION: Lower lung interstitial fibrosis or edema. Electronically Signed: Lazaro Perez MD at 12:21 EDT ,
[2024-03-05 11:56] VITALS: BP 152/91; PULSE 63; RESP 16; O2SAT 96
[2024-03-05 12:00] VITALS: BP 95/81
[2024-03-05 12:20] LABS: Platelet Estimate ADEQUATE (ADEQ)
[2024-03-05 13:00] VITALS: BP 177/73; PULSE 61; RESP 13; O2SAT 99
[2024-03-05 13:19] LABS: Reflex Troponin-HS? (from REC) Y
[2024-03-05 13:53] LABS: Troponin-I HS 6 pg/mL (3.0-78.0)
[2024-03-05 13:59] VITALS: BP 175/83; PULSE 61; RESP 11; O2SAT 99
[2024-03-05 15:00] VITALS: BP 163/80; PULSE 61; RESP 16; TEMP 36.6; O2SAT 99
== END 2024-03-05 15:14 | disposition home or self-care (01) ==
PROVIDERS: Emergency Provider Emergency Medicine; PCP Family Medicine; Visit Provider Emergency Medicine
DX: R10.13 Epigastric pain (principal); R07.9 Chest pain, unspecified; R13.10 Dysphagia, unspecified; J45.909 Unspecified asthma, uncomplicated; K21.9 Gastro-esophageal reflux disease without esophagitis; I10 Essential (primary) hypertension; R06.09 Other forms of dyspnea; Z79.899 Other long term (current) drug therapy; Z90.49 Acquired absence of other specified parts of digestive tract; N28.1 Cyst of kidney, acquired
CPT/HCPCS: 71046; 76705; 80053; 83690; 84484; 85025; 93005; 99283; A4216

== ENCOUNTER → 2024-10-25 | Outpatient (CLI) | payer MEDICARE, OTHER, SELFPAY ==
[2024-10-25 12:34] LABS: Absolute Lymphocyte Count 1.35 X10^3/uL (0.83-4.51); Absolute Neutrophil Count 2.9 X10^3/uL (2.0-7.7); Basophil# 0.09 X10^3/uL; Basophil% 1.6 % (0-1); Eosinophil# 0.33 X10^3/uL; Eosinophils% 5.9 % (0-5); Hematocrit 37.7 % (40-54); Hemoglobin 12.6 g/dL (13.0-16.5); Lymphocyte # 1.35 X10^3/ul (0.83-4.51); Mean Corp Hgb Conc 33.4 g/dL (32-36); Mean Corpuscular Hgb 32.3 pg (27.0-32.0); Mean Corpuscular Volume 96.7 fL (80-94); Mean Platelet Vol. 10.6 fl (6.2-12.0); Monocyte# 0.86 X10^3/uL; Monocyte% 15.3 % (0-10); NRBC Flagged by Analyzer 0 % (0-5); Neutrophil # 2.94 X10^3/uL (2.7-7.7); Neutrophil % 52.3 % (47-70); Platelet Count 551 K/mm3 (150-450); RBC Distribution Width CV 14.8 % (11.6-14.6); RBC Distribution Width SD 52.3 fl (35.1-43.9); White Blood Count 5.6 K/mm3 (4.4-11.0)
[2024-10-25 13:18] LABS: Anion Gap 7 (5-15); BUN 17 mg/dL (7-18); BUN/Creat Ratio 15.2 RATIO (10-20); Calcium,Total 8.8 mg/dL (8.5-10.1); Chloride 109 mmol/L (98-107); Cholesterol 133 mg/dL (200); Creatinine, Serum 1.12 mg/dL (0.70-1.30); EST Glomerular Filtration Rate 66 mL/min (>60); Est Glom Filt Rate - Afr Amer 80 mL/min (>60); Glucose 106 mg/dL (74-106); High Density Lipoprotein 42 mg/dL; Potassium 3.6 mmol/L (3.5-5.1); Sodium Level 140 mmol/L (136-145); Triglycerides 104 mg/dL; Very Low Density Lipoprotein 21 mg/dL (5-40)
[2024-10-25 13:34] LABS: Protein, Urine (Random) 14.7 mg/dL (<11.9); Protein:Creat Ratio 72 mg/g CRE (0-200)
== END | disposition home or self-care (01) ==
LOC: MFPLAB 10:19
PROVIDERS: PCP Family Medicine; Referring Provider Family Medicine; Visit Provider Family Medicine
DX: I10 Essential (primary) hypertension (principal); E03.9 Hypothyroidism, unspecified; K27.9 Peptic ulcer, site unspecified, unspecified as acute or chronic, without hemorrhage or perforation
CPT/HCPCS: 36415; 80048; 80061; 82570; 84156; 84436; 84443; 85025

== ENCOUNTER 2024-10-26 19:42 | Emergency (ER) | payer MEDICARE, OTHER, SELFPAY ==
[2024-10-26 19:43] VITALS: BP 144/79; PULSE 82; RESP 16; TEMP 36.6; O2SAT 98; BMI 29.2
--- NOTE | 2024-10-26 22:34 | EDS_ITS ---
HPI History of Present Illness Chief Complaint: Other, Pain/Inj Informant: patient Narrative Narrative: Patient is an 88-year-old male who reports a past medical history of hypertension hypothyroidism asthma and GERD. He states he rolled over in bed a few days ago and developed pain along the left side of his neck. He states he was able to take Tylenol and heat the area and it seemed to help reduce the symptoms. He states he felt better for approximately a day and then the stiffness and pain returned. He states he took Tylenol and there was minimal improvement and secondary to this he comes in for evaluation. He denies any fevers chills difficulty breathing or swallowing. He denies any radiation down the arm numbness tingling or weakness. [facility] Medical History Loss of hearing Wears glasses Cancer Seasonal allergies Non-smoker History of steroid therapy Thyroiditis Hiatal hernia Injury of head and neck Kidney stones Sleep apnea Hypertension Hypothyroidism History of prostate cancer History of nephrolithiasis Tricuspid regurgitation Mild pulmonary hypertension Grade I diastolic dysfunction Subdural hematoma Left bundle branch block History of spinal stenosis Neuropathy Asthma GERD (gastroesophageal reflux disease) Home Medications ?Medication ?Instructions ?Recorded ?Last Taken ?Type albuterol sulfate 90 mcg/actuation 1 - 2 puff inhalation Q4H PRN PRN 11/18/13 01/24/23 06:00 History aerosol inhaler Asthma fluticasone 250 mcg-salmeterol 50 1 puff inhalation DAILY breathing 11/18/13 04/12/15 05:00 History mcg/dose blistr powdr for inhalation (Kellyela Inhub) levothyroxine 25 mcg tablet 25 mcg PO DAILY thyroid #90 tabs 06/25/19 04/24/23 05:30 History flunisolide 25 mcg (0.025 %) nasal 1 - 2 spray NASAL Q6H PRN PRN 09/20/20 04/24/23 05:30 Rx spray Allergies #1 BOTTLE loratadine 10 mg tablet 10 mg PO DAILY PRN ALLERGIES #30 09/20/20 Unknown Rx tabs amlodipine 2.5 mg tablet 2.5 mg PO QHS blood pressure 09/05/21 01/23/23 22:00 History acetaminophen 325 mg PO/SL PRN PRN Pain 01/24/23 Unknown History melatonin 3 mg tablet 6 mg PO QHS PRN sleep 03/12/23 Unknown History desloratadine 5 mg tablet 5 mg PO DAILY PRN PRN ALLERGIES 04/21/23 Unknown History sucralfate 1 gram tablet (Carafate) 1 g PO TID #21 tabs 03/05/24 Unknown Rx rabeprazole 20 mg tablet,delayed 20 mg PO DAILY #90 tabs 05/10/24 Unknown Rx release methocarbamol 500 mg tablet 500 mg PO 4X/DAY PRN Muscle 10/26/24 Unknown Rx pain/spasm #40 tabs oxycodone 5 mg tablet 5 mg PO Q6H PRN pain 3 days #12 10/26/24 Unknown Rx tabs Allergy/AdvReac Type Severity Reaction Status Date / Time carrot Allergy Intermediate Swelling Verified 10/26/24 19:59 tomato Allergy Intermediate Hives Verified 10/26/24 19:59 grass pollen-perennial rye, Allergy Shortness Verified 10/26/24 19:59 standar of breath levofloxacin (From Levaquin) Allergy Other Verified 10/26/24 19:59 aspirin AdvReac Other Verified 10/26/24 19:59 Family History (Reviewed 03/12/23 @ 09:43 by Urszula Pond PROCESS DEVELOPMENT TECHNICIAN, PROCESS DEVELOPMENT TECHNICIAN-C) Brother Multiple sclerosis Sister Lung disease Mother CAD (coronary artery disease) Surgical History History of esophagogastroduodenoscopy (EGD) History of colonoscopy Status post right partial knee replacement Hx of craniotomy Hx laparoscopic cholecystectomy h/o lumbar surgery Social History Smoking Status: Never smoker alcohol intake: never ROS ROS ED Constitutional Constitutional ED: Denies chills or fever(s) Eyes Eyes: Denies blurry vision or change in vision ENT ENT ED: Denies sore throat Cardiovascular Cardiovascular: Denies chest pain Respiratory/Chest Respiratory/Chest: Denies cough or dyspnea Gastrointestinal Gastrointestinal: Denies abdominal pain, diarrhea, nausea or vomiting Genitourinary Genitourinary ED: Denies dysuria Musculoskeletal Musculoskeletal: Reports neck pain Integumentary Denies rash Neurologic Neurologic: Denies headache(s), paresthesias or weakness Hematologic/Lymphatic Hematologic/Lymphatic: Denies easy bleeding or easy bruising EXAM Physical Exam Const Vital Signs: 10/26/24 19:43 10/26/24 22:36 Temperature 98 F 98 F Temperature Source Oral Pulse Rate 82 82 Respiratory Rate 16 16 Blood Pressure 144/79 H 144/79 H Blood Pressure Mean 100 100 Pulse Ox 98 98 Oxygen Delivery Method Room Air Positive well nourished and well developed General Appearance ED: well developed; Negative for pallor HEENT Reports moist mucous membranes HEENT Narrative: No tongue or lip swelling No airway edema or compromise No signs of infection noticed in the posterior pharynx Eyes PERRL and EOMs intact bilaterally Neck Neck Narrative: No bony deformity or step-off of the cervical spine no midline tenderness to palpation There is left SCM muscle tension and spasm noted that worsens with sidebending and rotation Negative Spurling sign bilaterally Resp normal respiratory effort and clear to auscultation bilaterally Cardio regular rate and regular rhythm Rate: other Other Details: Carotid and radial pulses are equal and symmetric No carotid bruit noted Extremity normal to inspection Extremity Narrative: Left upper extremity is neurovascularly intact; AIN/PIN are intact and normal No bony deformity or joint effusions noted Negative sulcus sign Compartments are soft and compressible going against compartment syndrome Neuro oriented x3, CN's II-XII intact bilaterally and no sensory deficits noted Sensorium / Orientation: alert Psych mental status grossly normal Skin no rashes or lesions noted and no wounds General Skin Exam: Negative for jaundice or pallor MDM MDM MDM Narrative Medical decision making narrative: Patient arrived to the ER with stable vitals and reported left-sided neck discomfort without trauma. Physical exam does not show overlying soft tissue infection such as cellulitis or abscess there are no signs of posterior pharynx infection and patient does not have radicular symptoms indicating spinal stenosis or cervical radiculopathy. History and exam is most consistent with spasm and strain to the left SCM muscle. Secondary to this patient will be given Toradol and Norflex in the ER and placed on Robaxin for home but without signs of neurologic involvement or infection there is no need for further workup and he is otherwise safe for discharge. History & Record Review Discussion w/independent historian: Patient Discharge Plan Triage Chief Complaint: Other, Pain/Inj ED Provider: Otto Anne Dx/Rx/DC Orders Clinical Impression: Acute neck sprain, Muscle spasms of neck, Asthma, GERD (gastroesophageal reflux disease), Hypertension, Hypothyroidism Instructions: ED Neck Sprain or Strain, ED Neck Spasm, No Trauma Prescriptions: New methocarbamol 500 mg tablet 500 mg PO 4X/DAY PRN (Reason: Muscle pain/spasm) Qty: 40 0RF oxycodone 5 mg tablet 5 mg PO Q6H PRN (Reason: pain) 3 Days Qty: 12 0RF No Action levothyroxine 25 mcg tablet 25 mcg PO DAILY Qty: 90 amlodipine 2.5 mg tablet 2.5 mg PO QHS fluticasone propion-salmeterol [Wixela Inhub] 1 PUFF inhaler 1 puff inhalation DAILY albuterol sulfate 1 PUFF inhaler 1 - 2 puff inhalation Q4H PRN PRN (Reason: Asthma) loratadine 10 MG tablet 10 mg PO DAILY PRN (Reason: ALLERGIES) Qty: 30 0RF flunisolide 1 SPRAY spray,non-aerosol 1 - 2 spray NASAL Q6H PRN PRN (Reason: Allergies) Qty: 1 0RF melatonin 3 mg tablet 6 mg PO QHS PRN (Reason: sleep) acetaminophen 325 mg PO/SL PRN PRN (Reason: Pain) desloratadine 5 mg tablet 5 mg PO DAILY PRN PRN (Reason: ALLERGIES) sucralfate [Carafate] 1 gram tablet 1 g PO TID Qty: 21 0RF rabeprazole 20 mg tablet,delayed release (DR/EC) 20 mg PO DAILY Qty: 90 2RF Primary Care Provider: Simona Gracia Referrals: Simona Gracia MD [Primary Care Provider] - Activity Restrictions/Additional Instructions: Your history and exam is consistent with a spasm and strain to your sternocleidomastoid neck muscle. Continue to stretch and heat the area to reduce pain and speed healing. Take the prescribed medication as directed for improved pain control and return to the ER should you have any further concerns Print Language: Ukrainian Disposition Disposition: Home, Self Care Discharge Date/Time: 10/26/24 23:20
[2024-10-26 22:36] VITALS: BP 144/79; PULSE 82; RESP 16; TEMP 36.6; O2SAT 98
[2024-10-26] MEDS: Orphenadrine 60 MG/2 ML Ampul IM (22:41)
[2024-10-26] MEDS: Ketorolac 15 MG/ML Vial IM (22:42)
== END 2024-10-26 23:20 | disposition home or self-care (01) ==
PROVIDERS: Emergency Provider Emergency Medicine; PCP Family Medicine; Visit Provider Emergency Medicine
DX: S13.8XXA Sprain of joints and ligaments of other parts of neck, initial encounter (principal); K21.9 Gastro-esophageal reflux disease without esophagitis; J45.909 Unspecified asthma, uncomplicated; M62.838 Other muscle spasm; E03.9 Hypothyroidism, unspecified; I10 Essential (primary) hypertension; X58.XXXA Exposure to other specified factors, initial encounter
CPT/HCPCS: 96372; 99282

== ENCOUNTER → 2024-11-12 | Outpatient (CLI) | payer MEDICARE, OTHER, SELFPAY ==
[2024-11-12 10:39] LABS: Absolute Lymphocyte Count 1.47 X10^3/uL (0.83-4.51); Absolute Neutrophil Count 3.3 X10^3/uL (2.0-7.7); Basophil# 0.06 X10^3/uL; Eosinophil# 0.09 X10^3/uL; Eosinophils% 1.5 % (0-5); Hematocrit 35.5 % (40-54); Lymphocyte # 1.47 X10^3/ul (0.83-4.51); Lymphocyte % 24.3 % (19-41); Mean Corp Hgb Conc 33.8 g/dL (32-36); Mean Corpuscular Hgb 32.3 pg (27.0-32.0); Mean Corpuscular Volume 95.7 fL (80-94); Mean Platelet Vol. 10.8 fl (6.2-12.0); Monocyte# 1.12 X10^3/uL; Monocyte% 18.5 % (0-10); NRBC Flagged by Analyzer 0 % (0-5); Neutrophil # 3.26 X10^3/uL (2.7-7.7); Platelet Count 640 K/mm3 (150-450); RBC Distribution Width SD 51.8 fl (35.1-43.9); Red Blood Count 3.71 M/mm3 (4.6-6.2)
== END | disposition home or self-care (01) ==
LOC: MFPLAB 08:47
PROVIDERS: PCP Family Medicine; Referring Provider Family Medicine; Visit Provider Family Medicine
DX: D75.839 Thrombocytosis, unspecified (principal)

== ENCOUNTER → 2024-11-30 | Outpatient (CLI) | payer MEDICARE, OTHER, SELFPAY ==
--- NOTE | 2024-11-30 15:33 | RAD_ITS ---
PROCEDURE: CHEST PA AND LATERAL REASON FOR EXAM: Platelet levels off. TECHNIQUE: Frontal and lateral views of the chest. COMPARISON: 03/05/2024. FINDINGS: The heart size is normal. The mediastinal contour is unremarkable. The lungs are clear. The bones are unremarkable. RAD/Chest PA and Lateral IMPRESSION: NEGATIVE CHEST Reading Location: [id number]
== END | disposition home or self-care (01) ==
LOC: RAD 15:29
PROVIDERS: PCP Family Medicine; Referring Provider Internal Medicine Hematology & Oncology; Visit Provider Internal Medicine Hematology & Oncology
DX: R05.9 Cough, unspecified (principal)
CPT/HCPCS: 71046

== ENCOUNTER → 2025-01-19 | Outpatient (CLI) | payer MEDICARE, OTHER, SELFPAY ==
[2025-01-20 15:09] LABS: H. PYLORI STOOL AG Negative (Negative)
== END | disposition home or self-care (01) ==
LOC: LABSPEC 07:56
PROVIDERS: PCP Family Medicine
DX: K21.9 Gastro-esophageal reflux disease without esophagitis (principal)
CPT/HCPCS: 87338

== ENCOUNTER → 2025-07-01 | Outpatient (CLI) | payer MEDICARE, OTHER, SELFPAY ==
--- NOTE | 2025-07-01 10:57 | VDLE_ITS ---
Reason For Study Reason For Study: LLE Pain RIGHT LEFT CFV is compressible, spontaneous, phasic, competent GSV is normal. and demonstrates normal augmentation. CFV is compressible, spontaneous, phasic, competent, Procedure and demonstrates normal augmentation. This is a venous duplex using B-mode, color flow and FV is compressible, spontaneous, phasic, competent spectral Doppler. and demonstrates normal augmentation. Exam performed in department. POP V is compressible, spontaneous, phasic, competent A preliminary report was called and/or faxed to and demonstrates normal augmentation. Wilson. T/P Trunk is compressible. PTV is compressible. LT PerV is compressible. Hypoechoic, non vascular structure noted Lt Pop Fossa measuring 4.92cm x 1.49cm. VL/Venous Duplex US, Unilateral Interpretation Summary Deep veins of the left lower extremity are patent and compressible segmentally. There is no evidence of left lower extremity deep vein thrombosis. Valvular competence appears intact within the p roximal deep venous system on the left . The left great saphenous vein appears patent and compressible segmentally. A no n-vascular, hypoechoic structure is noted in the left popliteal space, measuring 4.92 cm x 1.49 cm. This probably represe nts a popliteal cyst. Clinical correlation is advised. The right common femoral vein is patent and compressibl e . Ordering Physician: Emory Rachel Referring Physician: Emory Rachel Performed By: Francine Sparrow, CHRISTIAN, RVT
== END | disposition home or self-care (01) ==
LOC: CVS 10:40
PROVIDERS: PCP Family Medicine; Referring Provider Family Medicine; Visit Provider Family Medicine
DX: R22.42 Localized swelling, mass and lump, left lower limb (principal); M79.605 Pain in left leg
CPT/HCPCS: 93971